=== PATIENT | female | born 1990 | race Caucasian/White ===

== ENCOUNTER 2022-11-28 21:19 | Outpatient (REF) | payer OTHER, SELFPAY ==
[2022-12-02 14:09] LABS: Age Gdln ACOG Testing Note (.); HPV Aptima Negative (Negative); IGP, Aptima HPV, rfx 16/18,45 Note (.)
== END 2022-11-28 21:20 | disposition home or self-care (01) ==
LOC: LAB 21:19
PROVIDERS: PCP Obstetrics & Gynecology; Visit Provider Obstetrics & Gynecology
DX: Z12.4 Encounter for screening for malignant neoplasm of cervix (principal)
CPT/HCPCS: 87624; G0145

== ENCOUNTER 2023-08-14 13:11 | Outpatient (REF) | payer OTHER, SELFPAY | END 2023-08-14 13:12 | disposition home or self-care (01) | LOC: LAB 13:11 | PROVIDERS: PCP Obstetrics & Gynecology; Visit Provider Obstetrics & Gynecology | DX: R10.2 Pelvic and perineal pain (principal); N92.5 Other specified irregular menstruation; N71.9 Inflammatory disease of uterus, unspecified | CPT/HCPCS: 88305 ==

== ENCOUNTER 2023-08-25 07:11 | Outpatient (OUT) | payer OTHER, SELFPAY ==
--- NOTE | 2023-08-25 07:13 | US_ITS ---
[address] [address] Patient Name: KIRSTY JONES MRN: [id number] date: 1990 Sex: F Assigned Patient Location: US Current Patient Location: US Accession/Order Number: [id number] Exam Date: 08/25/2023 07:14 Report Date: 08/25/2023 09:44 At the request of: LIZZIE FUENTES Procedure: US pelvis w/ transvaginal EXAMINATION: US pelvis w/ transvaginal HISTORY: Menorrhagia with regular cycle N92.0 COMPARISON: No relevant comparison available. TECHNIQUE: Transabdominal and/or transvaginal sonographic examination was performed as indicated by examination type. FINDINGS: UTERUS: Normal size and appearance. Several adjacent nabothian cysts within cervix. Uterus size: 7.8 x 4.8 x 5.9 cm ENDOMETRIUM: Hyperechoic 7 x 6 x 3 mm structure within fundal endometrial cavity without appreciable internal blood flow, but suggestive of a polyp. Endometrial thickness: 11 mm RIGHT OVARY: Normal size and appearance. Duplex Doppler demonstrates normal waveform and flow; resistive index 0.6. Ovary size: 3.2 x 2.8 x 2.8 cm LEFT OVARY: Normal size and appearance. Duplex Doppler demonstrates normal waveform and flow; resistive index 0.6. Ovary size: 3.0 x 2.8 x 1.6 cm CUL-DE-SAC: Unremarkable. No significant free fluid. BLADDER: Unremarkable. OTHER: None. US/US pelvis w/ transvaginal IMPRESSION: 1. Suspected polyp within fundal endometrial cavity, 7 mm in maximum size. Residual clotted blood products is felt less likely. 2. Unremarkable ovaries. 3. Normal endometrial appearance and thickness. Electronically authenticated by: MAHSA MILES Date: 08/25/2023 09:44
--- OUTSIDE RECORDS SUMMARY | 2023-08-25 07:13 | XMS_ITS | CCD ---
Author Organization [facility] Providers Care Figure Clerk Name Role Phone YANNICK LYNCH Unavailable Unavailable MAGGIE HUNTER Unavailable Unavailable ALFREDO, DR SAMUEL Admitting Unavailable ALFREDO, DR SAMUEL Primary Care Unavailable ALFREDO, DR SAMUEL Attending Unavailable ALFREDO, DR SAMUEL Consulting Unavailable ZIEBER, DR MAHSA Calle Consulting Unavailable ALFREDO, DR SAMUEL Admitting Unavailable ALFREDO, DR SAMUEL Attending Unavailable VERONICA ARMSTRONG Primary Care Unavailable ALFREDO, DR SAMUEL Admitting Unavailable ALFREDO, DR SAMUEL Attending Unavailable ALFREDO, DR SAMUEL Consulting Unavailable VERONICA ARMSTRONG Primary Care Unavailable ALFREDO, DR SAMUEL Admitting Unavailable ALFREDO, DR SAMUEL Attending Unavailable ALFREDO, DR SAMUEL Consulting Unavailable NATHANIEL VERONICA Primary Care Unavailable JASEN RAMIREZ Consulting Unavailable PILY GORDON Consulting Unavailable VERONICA ARMSTRONG Admitting Unavailable ALFREDO, DR SAMUEL Primary Care Unavailable VERONICA ARMSTRONG Attending Unavailable CELESTE BURT Consulting Unavailable ALFREDO, DR SAMUEL Primary Care Unavailable CELESTE BURT Admitting Unavailable CELESTE BURT Attending Unavailable ALFREDO, DR SAMUEL Admitting Unavailable ALFREDO, DR SAMUEL Attending Unavailable ALFREDO, DR SAMUEL Consulting Unavailable ALFREDO, DR SAMUEL Primary Care Unavailable Naeem Huitron Jr. Unavailable [phone] Naeem Huitron Unavailable Kelly MORAN, Veronica Primary Care Provider Unavaila DAKSHA Jiménez Attending Unavailable VERONICA SANCHEZ Primary Care Unavailable DAKSHA BROWN Referring Unavailable DAKSHA BRWON Attending Unavailable VERONICA SANCHEZ Primary Care Unavailable DAKSHA BROWN Referring Unavailable DAKSHA BROWN Attending Unavailable SELF, SELF Referring Unavailable VERONICA SANCHEZ Primary Care Unavailable Yannick Lynch DO Primary Care Provider YANNICK LYNCH Primary Care Unavailable LIZZIE BARNARD Attending Unavailable Lizzie Barnard Attending Unavailable Lizzie Barnard Admitting Unavailable Medications Current Medications Medication Drug Class(es) Dates Sig (Normalized) Sig (Original) busPIRone hydrochloride 10 mg oral tablet (2 sources) take 1 tablet by mouth every twelve hours busPIRone HCl 10 MG 1 tablet Oral bid for 90 Active ibuprofen 200 mg oral tablet (1 source) Nonsteroidal Anti-inflammatory Drug take 2 tablets by mouth every six hours as needed for pain ibuprofen (ADVIL;MOTRIN) 200 MG tablet Take 2 tablets by mouth every 6 hours as needed for Pain 0 Active ISOtretinoin 40 mg oral capsule (2 sources) Retinoid Start: 05-23-2022 take 2 capsules by mouth once daily Accutane 40 MG capsule Take 2 capsules by mouth daily. 0 05/23/2022 Active lamoTRIgine 100 mg oral tablet (2 sources) Mood Stabilizer, Anti-epileptic Agent take 1 tablet by mouth every twenty-four hours lamoTRIgine 100 MG 1 tablet Oral qd for 90 Active 24 hr metFORMIN hydrochloride 500 mg extended release oral tablet (2 sources) Biguanide Start: 01-29-2021 take 1 tablet by mouth every other week at dinner, then take 2 tablets by mouth once daily metFORMIN HCl ER 500 MG 1 tablet with breakfast or evening meal and in 2 weeks if no side effects take 2 tablets Orally Once a day for 30 day(s) Jan, Active MV-Min-Fe Fum-FA-DHA ( 1 PO) (1 source) MV-Min-Fe Fum-FA-DHA ( 1 PO) Take by mouth 0 Active topiramate 50 mg oral tablet (2 sources) take 1 tablet by mouth in the morning, then take 2 tablets by mouth twice daily in the evening Topamax 50 MG 1 tab am and 2 tabs pm p.o. bid Active 24 hr venlafaxine 37.5 mg extended release oral capsule (2 sources) Serotonin and Norepinephrine Reuptake Inhibitor take 1 capsule by mouth every twenty-four hours Venlafaxine HCl ER 37.5 MG 1 cap(s) Oral qd for 90 Active Problems Active Problems Problem Classification Problem Date Documented Date Episodic/Chronic Abdominal pain (1 source) Generalized abdominal pain; Translations: [Generalized abdominal pain] Onset: 09-18-2017 Episodic Contraceptive and procreative management (1 source) Tubal ligation status; Translations: [TUBAL LIGATION STATUS] Onset: 08-16-2021 Episodic Disorders of lipid metabolism (3 sources) Mixed hyperlipidemia; Translations: [Mixed hyperlipidemia] Onset: 01-29-2021 Resolved: 01-29-2021 Chronic Esophageal disorders (4 sources) Gastroesophageal reflux disease; Translations: [Gastro-esophageal reflux disease without esophagitis] Onset: 05-24-2022 Chronic Headache; including migraine (3 sources) Migraine; Translations: [Migraine, unspecified, not intractable, without status migrainosus] Onset: 01-29-2021 Resolved: 01-29-2021 Chronic Immunizations and screening for infectious disease (1 source) Encounter for screening for human papillomavirus (HPV); Translations: [ENC SCREENING HUMAN PAPILLOMAVIRUS] Onset: 06-30-2021 Episodic Menstrual disorders (5 sources) Excessive and frequent menstruation with regular cycle; Translations: [EXCESS FREQ MENSTRUATION W/REG CYCL] Onset: 08-03-2021 Chronic Mood disorders (3 sources) Bipolar disorder; Translations: [Bipolar disorder, unspecified] Onset: 01-29-2021 Resolved: 01-29-2021 Chronic Other endocrine disorders (2 sources) Polycystic ovaries; Translations: [Polycystic ovarian syndrome] Chronic Other endocrine disorders (1 source) Polycystic ovarian syndrome; Translations: [PCOS (polycystic ovarian syndrome) E28.2] Onset: 01-29-2021 Resolved: 01-29-2021 Chronic Other female genital disorders (1 source) Other specified noninflammatory disorders of vagina; Translations: [OTH SPEC NONINFLAMMATORY D/O VAGINA] Onset: 06-30-2021 Episodic Other nutritional; endocrine; and metabolic disorders (3 sources) Obesity, unspecified; Translations: [OBESITY UNSPECIFIED] Onset: 08-16-2021 Chronic Other nutritional; endocrine; and metabolic disorders (1 source) Body mass index (BMI) 39.0-39.9, adult; Translations: [BODY MASS INDEX BMI 39.0-39.9 ADULT] Onset: 08-16-2021 Chronic Other nutritional; endocrine; and metabolic disorders (2 sources) Body mass index 30+ - obesity; Translations: [Obesity, unspecified] Chronic Other nutritional; endocrine; and metabolic disorders (2 sources) Obese class II; Translations: [Obesity, unspecified] Onset: 05-24-2022 05-24-2022 Chronic Other screening for suspected conditions (not mental disorders or infectious disease) (4 sources) Encounter for screening for malignant neoplasm of cervix; Translations: [ENC SCREENING MALIG NEOPLASM CERV] Onset: 06-29-2021 Episodic Other skin disorders (4 sources) Acne vulgaris; Translations: [ACNE VULGARIS] Onset: 07-30-2021 Episodic Residual codes; unclassified (2 sources) Hypersomnia; Translations: [Hypersomnia, unspecified] Chronic Residual codes; unclassified (2 sources) Hypersomnia, unspecified; Translations: [Hypersomnia, unspecified] Onset: 05-24-2022 Chronic Sprains and strains (2 sources) Sprain of right foot; Translations: [Unspecified sprain of right foot, initial encounter] Onset: 05-22-2023 05-22-2023 Episodic Unclassified (1 source) CONTACT W/AND (SUSP) EXPOS COVID-19; Translations: [CONTACT W/AND (SUSP) EXPOS COVID-19] Onset: 08-16-2021 Past or Other Problems Problem Classification Problem Date Documented Da te Episodic/Chronic Acute bronchitis (2 sources) Acute bronchitis; Translations: [Acute bronchitis] Episodic Other nutritional; endocrine; and metabolic disorders (1 source) Abnormal weight gain; Translations: [Abnormal weight gain R63.5] Onset: 01-29-2021 Resolved: 01-29-2021 Episodic Other skin disorders (2 sources) Acanthosis nigricans; Translations: [Acanthosis nigricans] Episodic Other skin disorders (1 source) Acanthosis nigricans; Translations: [Acanthosis nigricans L83] Onset: 01-29-2021 Resolved: 01-29-2021 Episodic Results Test Name Value Interpretation Reference Range Facility [facility] 08-14-2023 L Specimen: [id number] Received: 08/16/23 Status: ELI Seymour Num: [id number] Spec Type: Surgical Subm Dr: Lizzie Barnard Tissues: A Endometrium - Biopsy (ENDO BX) Procedures: HE/2, Gross/Micro L4 Age/ Patient Sex Location Account Attending Physician Kirsty Jones 33/F LABELL [id number] Lizzie Barnard SPEC NUM: [id number] RECD: 08/16/23 STATUS: ELI SEYMOUR NUM: [id number] NARCISO: 08/14/[address]: Lizzie Barnard ENTERED: 08/16/[address] [facility] DR: Carlito Orta SPEC TYPE: Surgical DEPT: BOZENA KINSEY ORDERED: HE/2, Gross/Micro L4 ORDERED: HE/2, Gross/Micro L4 Pathological Diagnosis Endometrium, biopsy: Chronic endometritis. Gross Description Received in formalin, labeled with the patient's name, date of and endo bx is a 2.1 x 0.7 x 0.2 cm aggregate of olivas tissue and mucus, entirely submitted in A1. Clinical history: Pelvic pain in female, menorrhagia with irregular cycle CPT Codes 82484 Specimen: [id number] Received: 08/16/23 Status: SERAFINPavel Seymour Num: [id number] Spec Type: Surgical Subm Dr: Lizzie Barnard Tissues: A Endometrium - Biopsy (ENDO BX) Procedures: HE/2, Gross/Micro L4 Patient: Niranjan,Taylor [id number] (Continued) Signed (signature on file) Rea Callejas MD 08/17/23 1412 Normal [facility] XR FOOT RIGHT (MIN 3 VIEWS)o n 05-22-2023 XR FOOT RIGHT (MIN 3 VIEWS) EXAMINATION: THREE XRAY VIEWS OF THE RIGHT FOOT 05/22/2023 10:24 am COMPARISON: None. HISTORY: ORDERING SYSTEM PROVIDED HISTORY: foot pain s/p roling ankle TECHNOLOGIST PROVIDED HISTORY: foot pain s/p roling ankle 33-year-old female with right foot pain after rolling the ankle FINDINGS: Osseous alignment is normal. Joint spaces are well maintained. No marginal erosions are identified. No acute fracture or gross dislocation is seen. Mild plantar calcaneal spur. The medial and middle cuneiforms demonstrate proper alignment with the base of the 1st and 2nd metatarsals respectively. No tibiotalar joint effusion is seen. Boehler's angle is maintained. Mild soft tissue swelling at the dorsal midfoot and anterior ankle. IMPRESSION: 1. Mild plantar calcaneal spur. 2. Mild soft tissue swelling of the dorsal midfoot and anterior ankle. 3. No acute fracture or dislocation. Interpreted by: Jeremy Villalta MD Signed by: Jeremy Villalta MD 05/22/23 Final result Normal [facility] XR Foot - right 3 Viewson 1. Mild plantar calcaneal spur. 2. Mild soft tissue swelling of the dorsal midfoot and anterior ankle. 3. No acute fracture or dislocation. [facility] RIS CONSOLIDATED EXAMINATION: THREE XRAY VIEWS OF THE RIGHT FOOT 05/22/2023 10:24 am COMPARISON: None. HISTORY: ORDERING SYSTEM PROVIDED HISTORY: foot pain s/p roling ankle TECHNOLOGIST PROVIDED HISTORY: foot pain s/p roling ankle 33-year-old female with right foot pain after rolling the ankle FINDINGS: Osseous alignment is normal. Joint spaces are well maintained. No marginal erosions are identified. No acute fracture or gross dislocation is seen. Mild plantar calcaneal spur. The medial and middle cuneiforms demonstrate proper alignment with the base of the 1st and 2nd metatarsals respectively. No tibiotalar joint effusion is seen. Boehler's angle is maintained. Mild soft tissue swelling at the dorsal midfoot and anterior ankle. [facility] Jeremy Tse MD - 05/22/2023 EXAMINATION: THREE XRAY VIEWS OF THE RIGHT FOOT 05/22/2023 10:24 am COMPARISON: None. HISTORY: ORDERING SYSTEM PROVIDED HISTORY: foot pain s/p roling ankle TECHNOLOGIST PROVIDED HISTORY: foot pain s/p roling ankle 33-year-old female with right foot pain after rolling the ankle FINDINGS: Osseous alignment is normal. Joint spaces are well maintained. No marginal erosions are identified. No acute fracture or gross dislocation is seen. Mild plantar calcaneal spur. The medial and middle cuneiforms demonstrate proper alignment with the base of the 1st and 2nd metatarsals respectively. No tibiotalar joint effusion is seen. Boehler's angle is maintained. Mild soft tissue swelling at the dorsal midfoot and anterior ankle. IMPRESSION: 1. Mild plantar calcaneal spur. 2. Mild soft tissue swelling of the dorsal midfoot and anterior ankle. 3. No acute fracture or dislocation. [facility] Radiology Study observation (narrative) [facility] XR Foot - right 3 ViewsOrder ed By: Jeremy Villalta on 05-22-2023 [facility] Work Phone: CBC AUTO DIFFon 08-13-2021 BASO # 0.0 103/ul Normal 0.0-0.1 [facility] Comment on above: Performed By: #### C BC #### [facility] Laboratory [address] [address] [address] Estella Vicente Basophils/100 WBC (Bld) 0.5 % Normal 0.2-2.0 [facility] Comment on above: Performed By: #### C BC #### [facility] Laboratory [address] [place] [address] Dr. Estella Vicente EO # 0.1 103/ul Normal 0.0-0.7 [facility] Comment on above: Performed By: #### C BC #### [facility] [address] [place] [address] Dr. Estella Vicente Eosinophils/100 WBC (Bld) 1.2 % Normal 0.9-7.0 [facility] Comment on above: Performed By: #### C BC #### [facility] [address] [place] [address] Dr. Estella Vicente Erythrocyte distribution width (RBC) [Ratio] 13.1 % Normal 11.0-15.0 [facility] Comment on above: Performed By: #### C BC #### [facility] [address] [place] [address] Dr. Estella Vicente Hematocrit (Bld) [Volume fraction] 39.5 % Normal 36.0-48.0 [facility] Comment on above: Performed By: #### C BC #### [facility] [address] [place] [address] Dr. Estella Vicente Hemoglobin (Bld) [Mass/Vol] 13.2 g/dL Normal 12.0-16.0 [facility] Comment on above: Performed By: #### C BC #### [facility] [address] [place] [address] Dr. Estella Vicente IG # 0.01 10e3/ul Normal 0.00-0.03 [facility] Comment on above: Performed By: #### C BC #### [facility] [address] [place] [address] Dr. Estella Vicente IG % 0.1 % Normal 0.0-0.5 [facility] Comment on above: Performed By: #### C BC #### [facility] [address] [place] [address] Dr. Estella Vicente LYMPH # 1.7 103/ul Normal 1.2-3.8 [facility] Comment on above: Performed By: #### C BC #### [facility] [address] [place] [address] Dr. Estella Vicente Lymphocytes/100 WBC (Bld) 23.6 % Normal 20.5-60.0 [facility] Comment on above: Performed By: #### C BC #### [facility] [address] [place] [address] Dr. Estella Vicente MANUAL DIFF REQ NO Normal [facility] Comment on above: Performed By: #### C BC #### [facility] [address] [place] [address] Dr. Estella Vicente MCH (RBC) [Entitic mass] 29.1 pg Normal 26.7-34.0 [facility] Comment on above: Performed By: #### C BC #### [facility] [address] [place] [address] Dr. Estella Vicente MCHC (RBC) [Mass/Vol] 33.4 g/dL Normal 29.9-35.2 [facility] Comment on above: Performed By: #### C BC #### [facility] [address] [place] [address] Dr. Estella Vicente MCV (RBC) [Entitic vol] 87.2 fL Normal 81.0-99.0 [facility] Comment on above: Performed By: #### C BC #### [facility] [address] [place] [address] Dr. Estella Vicente MONO # 0.6 103/ul Normal 0.3-0.8 [facility] Comment on above: Performed By: #### C BC #### [facility] [address] [place] [address] Dr. Estella Vicente Monocytes/100 WBC (Bld) 7.5 % Normal 1.7-12.0 [facility] Comment on above: Performed By: #### C BC #### [facility] [address] [place] [address] Dr. Estella Vicente NEUT # 4.9 103/ul Normal 1.4-6.5 [facility] Comment on above: Performed By: #### C BC #### [facility] [address] [place] [address] Dr. Estella Vicente Neutrophils/100 WBC (Bld) 67.1 % Normal 43.0-75.0 [facility] Comment on above: Performed By: #### C BC #### [facility] [address] [place] [address] Dr. Estella Vicente Platelet mean volume (Bld) [Entitic vol] 11.9 fL Normal 9.5-13.5 [facility] Comment on above: Performed By: #### C BC #### [facility] [address] [place] [address] Dr. Estella Vicente PLT 252 103/ul Normal 150-450 [facility] Comment on above: Performed By: #### C BC #### [facility] [address] [place] [address] Dr. Estella Vicente RBC 4.53 106/ul Normal 4.20-5.40 [facility] Comment on above: Performed By: #### C BC #### [facility] [address] [place] [address] Dr. Estella Vicente WBC 7.3 103/ul Normal 4.0-11.0 [facility] Comment on above: Performed By: #### C BC #### [facility] [address] [place] [address] Dr. Estella Vicente Covid-19 PCR ([facility])on 08-01 SARS-CoV-2 (COVID-19) RNA CRIS+probe Ql (Unsp spec) Not detected Normal NOT DETECTED [facility] Comment on above: Result Comment: When diagnostic testing is negative, the possibility of a false negative should be considered in the context of a patient's recent exposures and the presence of clinical signs and symptoms consistent with SARS-CoV-2. This test is not yet approved or cleared by the [place] FDA. When there are no FDA-approved or cleared tests available, and other criteria are met, FDA can make tests available under an emergency access mechanism called an Emergency Use Authorization (EUA). The EUA for this test is supported by the Supervisor Forming Department of Health and Human Service's declaration that circumstances exist to justify the emergency use of in vitro diagnostics for the detection and/or diagnosis of the virus that causes COVID-19. This EUA will remain in effect for the duration of the COVID-19 declaration justifying emergency of IVDs, unless it is terminated or revoked by the FDA (after which the test may no longer be used). Performed By: #### C VDTBH #### [facility] [address] [address] [address] Estella Vicente PREG QUANT HCGon 08-13-2021 HCG QUANT 1 mIU/mL Normal [facility] Comment on above: Performed By: #### P REGQNT #### [facility] [address] [place] [address] Dr. Estella Vicente HCG RANGE SEE BELOW Normal [facility] Comment on above: Result Comment: 5-50 0-1 WEEK 40-300 1-2 WEEKS 100-1,000 2-3 WEEKS 500-6,000 3-4 WEEKS 5,000-200,000 1-2 MONTHS 10,000-100,000 2-3 MONTHS 3,000-50,000 2ND TRIMESTER 1,000-50,000 3RD TRIMESTER Performed By: #### P REGQNT #### [facility] [address] [place] [address] Dr. Estella Vicente CBC AUTO DIFFon 07-30-2021 BASO # 0.0 103/ul Normal 0.0-0.1 [facility] Comment on above: Performed By: #### C BC ####[facility] [address] [address]Dr. Estella Vicente Basophils/100 WBC (Bld) 0.4 % Normal 0.2-2.0 [facility] Comment on above: Performed By: #### C BC ####[facility] [address] [address]DrSaji Vicente EO # 0.1 103/ul Normal 0.0-0.7 [facility] Comment on above: Performed By: #### C BC ####[facility] [address] [address]Dr. Estella Vicente Eosinophils/100 WBC (Bld) 1.1 % Normal 0.9-7.0 [facility] Comment on above: Performed By: #### C BC ####[facility] [address] [address]Dr. Estella Vicente Erythrocyte distribution width (RBC) [Ratio] 12.9 % Normal 11.0-15.0 [facility] Comment on above: Performed By: #### C BC ####[facility] [address] [place], [place] [address]Dr. Estella Vicente Hematocrit (Bld) [Volume fraction] 41.3 % Normal 36.0-48.0 [facility] Comment on above: Performed By: #### C BC ####[facility] [address] [place], [place] [address]Dr. Estella Vicente Hemoglobin (Bld) [Mass/Vol] 13.6 g/dL Normal 12.0-16.0 [facility] Comment on above: Performed By: #### C BC ####[facility] [address] [place], [place] [address]Dr. Estella Vicente IG # 0.01 10e3/ul Normal 0.00-0.03 [facility] Comment on above: Performed By: #### C BC ####[facility] [address] [place], [place] [address]Dr. Estella Vicente IG % 0.1 % Normal 0.0-0.5 [facility] Comment on above: Performed By: #### C BC ####[facility] [address] [place], [place] [address]Dr. Estella Vicente LYMPH # 1.7 103/ul Normal 1.2-3.8 [facility] Comment on above: Performed By: #### C BC ####[facility] [address] [place], [place] [address]Dr. Estella Vicente Lymphocytes/100 WBC (Bld) 24.2 % Normal 20.5-60.0 [facility] Comment on above: Performed By: #### C BC ####[facility] [address] [place], [place] [address]Dr. Estella Vicente MANUAL DIFF REQ NO Normal [facility] Comment on above: Performed By: #### C BC ####[facility] [address] [id number][address] Estella Vicente MCH (RBC) [Entitic mass] 28.8 pg Normal 26.7-34.0 [facility] Comment on above: Performed By: #### C BC ####[facility] [address] [id number][address] Estella Vicente MCHC (RBC) [Mass/Vol] 32.9 g/dL Normal 29.9-35.2 [facility] Comment on above: Performed By: #### C BC ####[facility] [address] [place], [place] [id number]. Estella Vicente MCV (RBC) [Entitic vol] 87.5 fL Normal 81.0-99.0 [facility] Comment on above: Performed By: #### C BC ####[facility] [address] [place], [place] [address]Dr. Estella Vicente MONO # 0.6 103/ul Normal 0.3-0.8 [facility] [facility] Comment on above: Performed By: #### C BC ####[facility] [address] [place], [place] [address]Dr. Estella Jules Monocytes/100 WBC (Bld) 7.9 % Normal 1.7-12.0 [facility] Comment on above: Performed By: #### C BC ####[facility] [address] [place], [place] [address]Dr. Estella Vicente NEUT # 4.7 103/ul Normal 1.4-6.5 [facility] Comment on above: Performed By: #### C BC ####[facility] [address] [place], [place] [address]Dr. Estella Vicente Neutrophils/100 WBC (Bld) 66.3 % Normal 43.0-75.0 [facility] Comment on above: Performed By: #### C BC ####[facility] [address] [place], [place] [address]Dr. Estella Vicente Platelet mean volume (Bld) [Entitic vol] 11.4 fL Normal 9.5-13.5 [facility] Comment on above: Performed By: #### C BC ####[facility] [address] [place], [place] [address]Rq. Estella Vicente PLT 292 103/ul Normal 150-450 [facility] Comment on above: Performed By: #### C BC ####[facility] [address] [place], [place] [address]Tj. Estella Vicente RBC 4.72 106/ul Normal 4.20-5.40 [facility] Comment on above: Performed By: #### C BC ####[facility] [address] [place], [place] [address]Uq. Estella Vicente WBC 7.1 103/ul Normal 4.0-11.0 [facility] Comment on above: Performed By: #### C BC ####[facility] [address] [place], [place] [address]ErSaji Vicente SGOTon 07-30-2021 AST [Catalytic activity/Vol] 11 U/L Critically low 15-37 [facility] Comment on above: Performed By: #### T RIG, AST, ALT #### [facility] Laboratory [address] [address] [address] Estella Vicente SGPTon 07-30-2021 ALT [Catalytic activity/Vol] 20 U/L Normal 14-59 [facility] Comment on above: Performed By: #### T RIG, AST, ALT #### [facility] Laboratory [address] [address] [address] Estella Vicente TRIGLYCERIDEon 07-30-2021 Triglyceride [Mass/Vol] 68 mg/dL Normal <=150 [facility] Comment on above: Performed By: #### T RIG, AST, ALT #### [facility] Laboratory [address] [address] [address] Estella Vicente US PELVIS AND TRANSVAGon US PELVIS AND TRANSVAG EXAMINATION: US PELVIS AND TRANSVAG HISTORY: Excessive and frequent menstruation COMPARISON: No relevant comparison available. TECHNIQUE: Transabdominal and transvaginal sonographic examination. FINDINGS: UTERUS: Normal size and appearance. Uterus size: 9.6 x 5.2 x 6.0 cm ENDOMETRIUM: Normal homogeneous appearance. Endometrial thickness: 11 mm RIGHT OVARY: Normal size and appearance. Duplex Doppler demonstrates normal waveform and flow; resistive index 0.7. Ovary size: 3.3 x 1.7 x 2.2 cm LEFT OVARY: Normal size and appearance. Duplex Doppler demonstrates normal waveform and flow; resistive index 0.5. Ovary size: 4.3 x 2.2 x 3.3 cm CUL-DE-SAC: Unremarkable. No significant free fluid. BLADDER: Unremarkable. OTHER: None. IMPRESSION: 1. Normal pelvic ultrasound. No suspicious findings to account for patient's symptoms. Electronically authenticated by: MAHSA MILES Date: 2021-07-20 11:05 Normal [facility] PAP ACOG PANEL 2: 30 to 65on 07-12-2021 . . Normal [facility] Comment on above: Result Comment: Perf ormed at: WB Performed By: #### 4 [id number] ####[facility] [address] [address]DrSaji Vicente Age Gdln ACOG Testing 30-65 Normal [facility] Comment on above: Performed By: #### 4 [id number] ####[facility] [address] [address]Dr. Estella Vicente DIAGNOSIS: Comment Normal [facility] Comment on above: Result Comment: NEGA TIVE FOR INTRAEPITHELIAL LESION OR MALIGNANCY. Performed at: WB Performed By: #### 4 [id number] ####[facility] [address] [address]DrSaji Vicente HPV Aptima Negative Normal Negative [facility] Comment on above: Result Comment: This nucleic acid amplification test detects fourteen high-risk HPV types (16,18,31,33,35,39,45,51,52,56,58,59,66,68) without differentiation. Performed at: =G Performed By: #### 4 [id number] ####[facility] [address] [address]DrSaji Vicente Methodology: Comment Normal [facility] Comment on above: Result Comment: This liquid based ThinPrep(R) pap test was screened with the use of an image guided system. Performed at: WB Performed By: #### 4 [id number] ####[facility] [address] [address]Dr. Estella Vicente Note: Comment Normal [facility] Comment on above: Result Comment: The Pap smear is a screening test designed to aid in the detection of premalignant and malignant conditions of the uterine cervix. It is not a diagnostic procedure and should not be used as the sole means of detecting cervical cancer. Both false-positive and false-negative reports do occur. . Performed at: WB Performed By: #### 4 [id number] ####[facility] [address] [address]Dr. Estella Vicente Performed by: Comment Normal [facility] Comment on above: Result Comment: Elena Storm [employer] Worker (ASCP) Performed at: WB Performed By: #### 4 [id number] ####[facility] [address] [place], [place] [address]Dr. Estella Vicente Specimen adequacy: Comment Normal [facility] Comment on above: Result Comment: Sati sfactory for evaluation. Endocervical and/or squamous metaplastic cells (endocervical component) are present. Performed at: WB Performed By: #### 4 [id number] ####[facility] [address] [place], [place] [address]DrSaji Vicente VAGINITIS/VAGINOSIS DNA PROB Kole 07-12-2021 Dorothy species Positive Abnormal Negative The [facility] Comment on above: Performed By: #### V AGINT #### [facility] Laboratory [address] [place] [address] Dr. Estella Vicente Gardnerella vaginalis Negative Normal Negative [facility] Comment on above: Performed By: #### V AGINT #### [facility] Laboratory [address] [address] [address] Estella Vicente Trichomonas vaginalis Negative Normal Negative [facility] Comment on above: Performed By: #### V AGINT #### [facility] Laboratory [address] [place] [address] Dr. Estella Vicente PAP ACOG PANEL 2: 30 to 65on 07-04-2021 . . Normal [facility] Comment on above: Result Comment: Perf ormed at: WB Performed By: #### 4 [id number] ####[facility] [address] [id number] Vicente Age Gdln ACOG Testing 30-65 Normal [facility] Comment on above: Performed By: #### 4 [id number] ####[facility] [address] [id number] Vicente DIAGNOSIS: Comment Normal [facility] Comment on above: Result Comment: NEGA TIVE FOR INTRAEPITHELIAL LESION OR MALIGNANCY. Performed at: WB Performed By: #### 4 [id number] ####[facility] [address] [address]DrSaji Vicente HPV Aptima Negative Normal Negative [facility] Comment on above: Result Comment: This nucleic acid amplification test detects fourteen high-risk HPV types (16,18,31,33,35,39,45,51,52,56,58,59,66,68) without differentiation. Performed at: =G Performed By: #### 4 [id number] ####[facility] [address] [id number]. Estella Vicente Methodology: Comment Normal [facility] Comment on above: Result Comment: This liquid based ThinPrep(R) pap test was screened with the use of an image guided system. Performed at: WB Performed By: #### 4 [id number] ####[facility] [address] [address]DrSaji Vicente Note: Comment Normal [facility] Comment on above: Result Comment: The Pap smear is a screening test designed to aid in the detection of premalignant and malignant conditions of the uterine cervix. It is not a diagnostic procedure and should not be used as the sole means of detecting cervical cancer. Both false-positive and false-negative reports do occur. . Performed at: WB Performed By: #### 4 [id number] ####[facility] [address] [id number] Vicente Performed by: Comment Normal [facility] Comment on above: Result Comment: Elena Storm [employer] Worker (ASCP) Performed at: WB Performed By: #### 4 [id number] ####[facility] [address] [address]Dr. Estella Vicente Specimen adequacy: Comment Normal [facility] Comment on above: Result Comment: Sati sfactory for evaluation. Endocervical and/or squamous metaplastic cells (endocervical component) are present. Performed at: WB Performed By: #### 4 [id number] ####[facility] [address] [address]Dr. Estella Vicente VAGINITIS/VAGINOSIS DNA PROB Kole 06-30-2021 Dorothy species Positive Abnormal Negative [facility] Comment on above: Performed By: #### V AGINT #### [facility] Laboratory [address] [address] [address] Estella Vicente Gardnerella vaginalis Negative Normal Negative [facility] Comment on above: Performed By: #### V AGINT #### [facility] Laboratory [address] [address] [address] Estella Vicente Trichomonas vaginalis Negative Normal Negative [facility] Comment on above: Performed By: #### V AGINT #### [facility] Laboratory [address] [address] [address] Estella Vicente Coding Summary.on 11-16-2020 Coding Summary. CD:[id number] Gh0bWw+PGhlYWQ+PE1FV CDkC14gwMIlgT4TJ8jIM V6GHWVCVITGXJ2GXA3fb YW3TQcuN2AjwqYc SqhirMXlMW13WHg4ZCL6 jJfcHBekjD1amTSfA9a4 ZlAsWI69xN42DCyzGNHc AuX9KvAslavkpQFe O2efPgQlhXFeNvm+PHRh YmxlIHdpZHRoPScxMDAl DcDgwQmxPQ9pDp9xHVJe LWNvbGxhcHNlOiBj x5ykLSAzEXibSJ3rkTnf I8VdwOA7PHDlv2i8Tr83 dHI+KHXkJWQ2yYfoRWfb t039PtUyj4jmZEG5 cVVvBItsHLL3I04ya4C3 VSFtTFItQFI1dCA5uX9g bPvysgriM7KloMHpGoJ0 EIP3rQKqxF6wjHom iuxcmY1oVek+G84CLU1K WRFGXL0ZKcn2L1SuCebz dHI+LN47CFDnZT44bLRc vHWcv2hbwVt1KmOa GMEeSPB5wGokHZsmn0Wj LTAsU57aeZJkd6V6FLTt uCqeqEZjOoNbuZM4uY2y CFdnhyaao1vsolvv Plzhf6ctmb42sD11X07y IUenTIPkACA7BAAbJYLv hKphri6fmQ2kJs3+IDxj m7hzi6yauQf9GtUs HYYnhxStjQkuYIO9y4Rl Mv64J9UjsPbop2ZuRnu9 il85fAQbq1A2fNP7JByn KQKhyW4aBMifKoR4 LCPxNmFfqB50qESaRIom Bg3eqOceqMouDA9dZLPz yghiLXIopE2bILAfmXSf rCokPX7iRGKspzpr a064IoGvNNH0BDXwzLEd G5MdeT8mSrKjMKUdAWIk S2WrqOFdAGshB413AMje AhQ5DVImclPjF4Gt KOZzaLunQpH9g1Z4Rn6G q3LiispyDEW9TQaiVQS2 KxZ6CzSbLfF8I0CvSvh7 KBLgfHwoSB9pF4Sh RGMmdsykzaiulZX5BFVd MJLvhM26eFAsVYixPh2h s0N2e479KXAzDCBlyL41 Hh8yzOtcFULgfWMH uY0ouanpd7vahdmuXcIc WFUiFZs4ZIz6NYYmtAvt SeKhTKN9OeX0GHY1sVWa hI3zkModthhdxH1b Oyc+Z45uvD2tOTT0FQE4 dwtgNTDfjnXfAI55OV33 C1IlIijtmHFboGH+PGRp gcVpwPxoVQ1rMzXw d4nsd0GwGAqzS4KwDAHi SWcmAso2MMEhTCY6uZV2 gM8mYLQaKVmnz9J0oWN1 X4SqajWrtf9mw9nm EEIvQTbnY18vcDHzb2Y3 NQNygUI1UERsbJfbJtXk gF00Fpc+GNAmsKueb8Iu Kivap5hfk8rvwQe1 IjMwJSIgdmFsaWduPSJ0 m3JvJc35M78kXRahWZEr GAVyKHAjCCWdiIzbcl3p rV4fOe1+PGNvbCB3 aUA1uT6yHHDwCyD5WDbb A441NqDlqCCeVskcm0zq t0ehwVp7KwSoCWHwvjAs gTzeDIS6e9OsPg24 K28qQOudWPDbBTGwQEZw CWDasXsxia2vjP9yOq1+ EP7vz2koad60aI55eZH+ HCXaJPU4aNvsXRqg GSQanQ4oQIqkGuG2HEOb GqNkpG46yQVnGLrdDa4i dVlivFgmNI3iBCXvmhzz j814TnIkn7dsRAYp eHYhMMhuDVV1X64lh3P5 VURuHNNlHJT8mPS4oT8s bGlnbjogbGVmdDsgdmVy dVjuHBhaTGryS158 IHRvcDsnPlBhdGllbnQg VvMoDUn7Y6ZwJvz9BEVl cApwLQ7hlZMdCPgsLs3z hWtnbDjuSV1rSZZk jdcih455ExWgw2rqZFVu lZVqSZasBDC7Q17vb7P4 FPZfQIYhNPQ2iJU2xY8b bGlnbjogbGVmdDsg kqVlgBkeRQhqASugV404 IHRvcDsnPkJpcnRoIERh vXD2JY15ED68lDSkq2P6 pOM3S3TxRZWolwzm zcwghMB6RHIjXECdtS31 Hs7opTmwSx3kGVOyVCF9 KXXbqDJhY7JxzQ3xKxGo NFQwUMNiT3PuxYWx VRahK547EJfkBxR4TTLz mbLuP3IrQDTsoRysRrI2 s0B4Sl5CJ6C1BN83BK06 sMBsk1Z7tXC2E4Gl LQZsvqbxjqiuhWZ0IOIt CMTliV14Xn4onNemTe4e SCSjKCR2AOOttIWuC7Qt vA3tSoKzKLStGESs B0AzgSEnVIajO917BOti ZsQ4CEGyyzGeU4SwJMCk yFmhIlK4r5W3Hw2RENr4 BK93IR87iKWon1J0 pUX9G5JkSWYbezjmzimv bJS3VLHeMSNrbS59Ui8a kQjrOl8yICCrMPR3OEPf qOTpP7MnfZ2xKjBn ICDjFJZvB6BgaMGqOVem T855NEpqMqQ2IJMrtkIr Y3XbUMEzuMxcMnN0w8U9 Hb1XDODxSI35TVD9 oQI6LD42HE09E0HgXiwl dGFibGU+PHRhYmxlIHdp ZHRoPScxMDAlJyBzdHls NL3mCr5oJNBzJRMf dWxgmUCcXuQbn0icHSZt MPbgSA0ubLkcF5EfoDD8 ETLjx2k8Gx67Y89hM0Sk dXA+FXTsvPI4sJH0 nO6nJmCoQgM8ZDyxR820 AqXjgBEsDgqfm9itr2xm gGp0ZiR8XHPbvwYvfQuk GPP1t5JuWn30S79o IHdpZHRoPSIxNSUiIHZh sRanar3puR2kRa1+PGNv yFJ3dML0xL9mEvJsZmR6 WEadG261FtFopZYa Oaehp1hun1nojNb8JyTn COOjvqKzuPqfMBI0p0Hz Gb51N8QnmDocp5KkMgo5 ww46bQHjz4V0mMO2 K3LpTKJozmmvpRFbpZyq ZG6wXILzwkmiIGHusA6l DAOsR0b5YmDpZwT3ALmq K2HnrmC0EEYbuWEx RZavWIJ7X21qc3S4LMCt GJXfEGS7wDE3qY5ygJmh bjogbGVmdDsgdmVydGlj QQbgYXozP886FBQa fSotGTCpuI5uHYOmoIXs sVrjQL6yURVpxvpwOp8U X2uICNGEWItvRTTBVI1I UT25H2EhXxg7YIMt yBmiMK5yvODgAHxdBw0u xFchfFvtRW7bOZAfwztk AZCzgS5qKICmxIXctJbs MA0mEXPuvnwte769 ByTlLHS3NAEniAWyK5Vx jR7tVmAnMGDqXDTaC5Ob xQLdMYaxR311UFvuYmE6 DTOehzBiB8SbMEKb uPslKgZ1d4J7Br7xRh5w Dq5lHNeoGF52UT70kAUd d7W9hDP9H0GlVNQgjfxz erdpfBT4XTLcLRVm uV31zBNbZEdeMd9sw4K7 j919RGPyORAdgY31Ab2k oJqvUSRmuXTLjM5qnnss h7mpljniGmHkRFFs SKn5HHj4GDPpzQsnUlCy SFC1YjH9MZH3dCOkeF8k cDbvmqmekC2xIyg+MzAg JLWrsoW8R4LbIvl1 WFQhqLyjRN8bnWNhLKzr Hf3mwCzfsIgaUM7gWKFk kwrdGZQjmJ6rHSJewEUj gPxmKQ5iASPhdeid n063BhRlKSF0QLGxiPNf K4ZikV9tGxYeSYHvLPUf J3VbeYAvFWhhO604PVbq IcS6VVPnwiVuK8Dk QMIxxFrgVbW3b3M7Nf4E TM2rtBX7M2FiKar0QQUr zUxzWT8tjEIsVRawEv2z aYtizLygGE0cJCKu uvuqAWNjhO5uRQThaMFo lWxrDD5pZQXswdkbo542 IvZpUIO2WPDdqEGiV3Tq dE4wTmWiDJFwPEPr R1BncTSoDEtlS343JZnd BiK3IEUafjHnN3UuQGRk wAzyHnF9e3Z7Bt6OUCAx RBOgzUAlVcJ2Q1Ei PjwvdHI+JH86MJAlVG19 oJNkyHYwu8yxhHe0NpSq NWTsLNH8rGbwMOqoc6Bf SRMfS38vwLPyj3A3 IGNvbGxhcHNlOyBlbXB0 wK3eLUinftgkn6unywyo Zjpmv5nacq71sZ47E22z IHdpZHRoPSIzMCUi JMPgsAqeym9gyE2aBt8+ MZDrfYK7fEK9iC5pJvWo DwS2ZMptF579WpCajNBe Uhwma4vch0snkLx5 IjIwJSIgdmFsaWduPSJ0 i6LrUp14X82gZVzsPHUc SKCvQHDcTFNccVfouv3m mE7fXq2+GK5wc7if pa89bY28iJR+PHRkIHN0 xEbnBGojVVRobV1dXWsx AcI3AYMyNcZehA83qHPl XRhiWu7fjGtgjTru ZL3zXNPmmtodr734HeXk h5flRAUkrDQqPHitPYA8 B39gg1A9EDXqMKErOXG5 fGZ7fD6ntMkrptwb bGVmdDsgdmVydGljYWwt VQevP813GIUdmQzuFvHc xFNhG5lsxiIWVE4aBntd dGQ+QDZeARM2mVsf JNumOXFfnS5yUHRoN4w1 LfPbErI3JJoiU9EnokQ8 CVAzaSNiWOSeuVUTpB0d pilad5zdgtbdEwRo AGMcZYa6ISp0FUEwdBhn WwTtVDT3VgW8QQK4nEBw oB0eqVrtqyfkiL4xZzx+ RklOOjwvdGQ+PHRk BBJ5wUvoYOegLSSiiR8o BMJbG5v5SfTtSaS2AEtr Q8OcuhO9FROneCGoBDAm rKCJbB2uizutm8bn yffgNsQaJGAiFNr9TXm3 YZAtiNscTiNkLHL2TtC7 GXH9bDZvtH1iwXyiimfw lT8dSqn+TVJOOjwv dGQ+CCUhKQF3zTaiWYfw CKWujS1tLEHqR8d3IcUe FvN5FMyzT4RiydE4IVEa hRTdUDIkiAZPeZ9k jtvod6wqlercGfHeRIEr WJd5UTr1RHEjwQkbTjYo TFX7OrW9WLA0aFYukJ3e dXpkrjhplL7tHnc+ CHI0VMK5RT52IX17M1Et PjwvdGFibGU+PHRhYmxl IHdpZHRoPScxMDAlJyBz kLtrBI8tEi9lSDKl LWNv (more content not included)... Normal [facility] Ambulatory Clinical Summaryo n 11-12-2020 Ambulatory Clinical Summary {[id number]}CD:[id number] Normal [facility] Auto Diffon 11-12-2020 Basophils/100 WBC (Bld) 0.6 % Normal 0.0-2.0 [facility] Comment on above: Order Comment: Order Added by Discern Expert. Performed By: #### 1 [id number], [id number], 7827957, 4428188, 1635217, 1447665 #### [facility] Laboratory [address] [place] [address] Basophils/Leukocytes Auto (Bld) [Pure # fraction] 0.0 E9/L Normal 0.0-0.2 [facility] Comment on above: Order Comment: Order Added by Discern Expert. Performed By: #### 1 [id number], 57850012, 7261170, 9089744, 6882147, 1830446 #### [facility] [address] [place] [address] Eosinophils/100 WBC (Bld) 1.0 % Normal 0.0-8.0 [facility] Comment on above: Order Comment: Order Added by Discern Expert. Performed By: #### 1 4008615, 58655455, 2380435, 4997959, 8694138, 1496807 #### [facility] [address] [place] [address] Eosinophils/Leukocyt es Auto (Bld) [Pure # fraction] 0.1 E9/L Normal 0.0-0.5 [facility] Comment on above: Order Comment: Order Added by Discern Expert. Performed By: #### 1 0068076, 14609867, 5931624, 2409150, 5043516, 2751308 #### [facility] [address] [place] [address] Lymphocytes/100 WBC (Bld) 21.6 % Normal 14.0-50.0 [facility] Comment on above: Order Comment: Order Added by Discern Expert. Performed By: #### 1 7534372, 28488090, 8426390, 2850747, 3494985, 5015195 #### [facility] [address] [place] [address]197 Lymphocytes/Leukocyt es Auto (Bld) [Pure # fraction] 1.7 E9/L Normal 1.0-4.0 [facility] Comment on above: Order Comment: Order Added by Discern Expert. Performed By: #### 1 [id number], 49509264, 3117695, 6957975, 2396584, 4312003 #### [facility] [address] [place] [address]6219 Monocytes/100 WBC (Bld) 7.4 % Normal 4.0-14.0 [facility] Comment on above: Order Comment: Order Added by Discern Expert. Performed By: #### 1 1343677, 47349912, 8808937, 0657421, 0678904, 1293245 #### [facility] [address] [place] [address]691 Monocytes/Leukocytes Auto (Bld) [Pure # fraction] 0.6 E9/L Normal 0.2-1.0 [facility] Comment on above: Order Comment: Order Added by Discern Expert. Performed By: #### 1 1306826, 29896569, 5304993, 2017582, 1995472, 2257798 #### [facility] [address] [place] [address] 43104 Neutrophils/100 WBC (Bld) 69.4 % Normal 36.0-75.0 [facility] Comment on above: Order Comment: Order Added by Discern Expert. Performed By: #### 1 1114956, 53721856, 4785567, 5070362, 0060677, 1320052 #### [facility] [address] [place] [address] 47627 Neutrophils/Leukocyt es Auto (Bld) [Pure # fraction] 5.6 E9/L Normal 2.0-7.5 [facility] Comment on above: Order Comment: Order Added by Discern Expert. Performed By: #### 1 5676981, 46235672, 7140363, 2150058, 3866810, 2068524 #### [facility] [address] [place] [address] 24949 CBC w/ Auto Diffon 1 Erythrocyte distribution width (RBC) [Ratio] 13.0 % Normal 10.9-14.2 [facility] Comment on above: Performed By: #### 1 5679129, 67964594, 5336651, 1417047, 5198338, 1237014 #### [facility] [address] [place] [address] 68437 Hematocrit (Bld) [Volume fraction] 40.8 % Normal 34.0-46.0 [facility] Comment on above: Performed By: #### 1 7165302, 84640590, 6199394, 2108062, 3052607, 5623475 #### [facility] [address] [place] [address] 57859 Hemoglobin (Bld) [Mass/Vol] 13.4 g/dL Normal 12.0-16.0 [facility] Comment on above: Performed By: #### 1 7387338, 71700321, 1724801, 2355509, 1040857, 9120078 #### [facility] [address] [place] [address] 29641 MCH (RBC) [Entitic mass] 29.0 pg Normal 27.0-34.0 [facility] Comment on above: Performed By: #### 1 5338454, 45380415, 9205744, 0192296, 9405277, 9936515 #### [facility] [address] [place] [address] 11993 MCHC (RBC) [Mass/Vol] 32.9 g/dL Normal 31.4-36.0 [facility] Comment on above: Performed By: #### 1 4502431, 57016083, 9202037, 4325730, 0364668, 8580088 #### [facility] [address] [place] [address] 52675 MCV (RBC) [Entitic vol] 88.1 fL Normal 80.0-100.0 [facility] Comment on above: Performed By: #### 1 9828817, 41382420, 7788734, 1533266, 0433990, 6844374 #### [facility] [address] [place] [address] Platelet mean volume (Bld) [Entitic vol] 10.7 fL Normal 6.4-10.8 [facility] Comment on above: Performed By: #### 1 [id number], [id number], 0660230, 1003947, 4415295, 0308439 #### [facility] [address] [place] [address] Platelets (Bld) [#/Vol] 306.0 E9/L Normal 150.0-500.0 [facility] Comment on above: Performed By: #### 1 [id number], [id number], 0778984, 0619876, 0983139, 8442137 #### [facility] [address] [place] [address] RBC (Bld) [#/Vol] 4.6 E12/L Normal 4.3-5.9 [facility] Comment on above: Performed By: #### 1 [id number], [id number], 5442491, 2904147, 2041382, 7800008 #### [facility] [address] [place] [address] WBC corrected for nucl RBC Auto (Bld) [#/Vol] 8.0 E9/L Normal 4.0-11.0 [facility] Comment on above: Performed By: #### 1 [id number], 68885175, 4699532, 3656619, 9978912, 2682526 #### [facility] [address] [place] [address] CMPon 11-12-2020 Albumin [Mass/Vol] 3.8 g/dL Normal 3.3-5.0 [facility] Comment on above: Performed By: #### 1 [id number], 90853298, 6000647, 9892126, 4279956, 4327463 #### [facility] [address] [place] [address]86 Albumin/Globulin (S) [Mass conc ratio] 1.1 Normal 1.1-2.2 [facility] Comment on above: Performed By: #### 1 [id number], 18356503, 6582006, 0966014, 6725844, 5817801 #### [facility] [address] [place] [address]5972 ALP [Catalytic activity/Vol] 72 Int._Unit/L Normal 21-98 [facility] Comment on above: Performed By: #### 1 [id number], 04554075, 5415180, 8060304, 1079506, 3253838 #### [facility] [address] [place] [address] ALT No additional P-5'-P [Catalytic activity/Vol] 17 Int._Unit/L Normal 6-46 [facility] Comment on above: Performed By: #### 1 [id number], [id number], 1457837, 7765778, 7830144, 7083568 #### [facility] [address] [place] [address] Anion gap [Moles/Vol] 11 mmol/L Normal 6-16 [facility] [facility] Comment on above: Performed By: #### 1 [id number], [id number], 8017660, 0091175, 5039211, 5051298 #### [facility] [address] [place] [address] AST [Catalytic activity/Vol] 19 Int._Unit/L Normal 5-43 [facility] Comment on above: Performed By: #### 1 [id number], 54972554, 2325625, 4019518, 2370549, 0212855 #### [facility] [address] [place] [address] Bilirubin [Mass/Vol] 0.8 mg/dL Normal 0.0-1.1 [facility] Comment on above: Performed By: #### 1 [id number], [id number], 2441589, 4142674, 7485941, 2919790 #### [facility] [address] [place] [address] Calcium [Mass/Vol] 8.8 mg/dL Low 8.9-11.1 [facility] Comment on above: Performed By: #### 1 [id number], 30300609, 4153749, 4210957, 2078418, 6333262 #### [facility] [address] [place] [address] Chloride [Moles/Vol] 105 mmol/L Normal 101-111 [facility] Comment on above: Performed By: #### 1 [id number], 22024592, 8647188, 0134185, 7236459, 7291800 #### [facility] [address] [place] [address] CO2 [Moles/Vol] 25 mmol/L Normal 21-31 [facility] Comment on above: Performed By: #### 1 8876510, 77222212, 0401323, 0046424, 3703078, 2587085 #### [facility] [address] [place] [address] Creatinine [Mass/Vol] 0.7 mg/dL Normal 0.5-1.3 [facility] Comment on above: Performed By: #### 1 1158884, 81956189, 6590739, 1564961, 3439641, 6756046 #### [facility] [address] [place] [address] Globulin (S) [Mass/Vol] 3.4 g/dL Normal 1.4-4.0 [facility] Comment on above: Performed By: #### 1 9613535, 27315103, 6723695, 7318396, 6272896, 5038081 #### [facility] [address] [place] [address] Glucose [Mass/Vol] 90 mg/dL Normal 55-199 [facility] Comment on above: Result Comment: If t his glucose result represents a fasting glucose, interpretation should refer to the following reference range: 55-99 mg/dL Performed By: #### 1 8094070, 94428996, 0540502, 2501675, 0971400, 2563375 #### [facility] [address] [place] [address] Potassium [Moles/Vol] 4.0 mmol/L Normal 3.5-5.3 [facility] Comment on above: Performed By: #### 1 1686402, 39853557, 7503551, 9003661, 4071998, 7241773 #### [facility] [address] [place] [address] Protein [Mass/Vol] 7.2 g/dL Normal 6.0-7.8 [facility] Comment on above: Performed By: #### 1 8567006, 10024004, 0236403, 3969555, 9623549, 1046531 #### [facility] [address] [place] [address] Sodium [Moles/Vol] 137 mmol/L Normal 135-145 [facility] Comment on above: Performed By: #### 1 4768504, 91646892, 6789904, 1763849, 3128640, 1497424 #### [facility] [address] [place] [address] Urea nitrogen [Mass/Vol] 8 mg/dL Normal 5-21 [facility] Comment on above: Performed By: #### 1 1086760, 40696414, 6107140, 5654719, 3045491, 8718216 #### [facility] [address] [place] [address] Urea nitrogen/Creatinine [Mass ratio] 11 No Units Normal 10-20 [facility] Comment on above: Performed By: #### 1 9339545, 28336988, 7090357, 5825450, 4135124, 5301908 #### [facility] [address] [place] [address] Family Medicine Office/Clini c Noteon 11-12-2020 Family Medicine Office/Clinic Note Chief Complaint STOCK ORDER LISTER here to discuss weight loss and a wheel blocker. History of Present Illness STOCK ORDER LISTER. 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 Here today to discuss weight loss. Previously was prescribed phentermine, yet noted exacerbation of her underlying bipolar disorder with use. Over the past 9 years patient has had 3 children, has gained approximately 60-65 pounds and unable to lose weight despite her weight loss efforts. Has trialed keto diet which was unsustainable. Participates in physical activity twice a week at local [employer], elliptical and treadmill. Denies history of childhood obesity. Does note a history of migraine headaches as well, does take Topamax for this. Would like to be evaluated by dietitian/weight loss clinic in [place] as one of her friends has had success with this. Also contributes weight gain to previous medication management for bipolar disorder, was prescribed aripiprazole and noted weight gain with use. Currently taking buspirone, lamotrigine, topiramate and venlafaxine. Follows psychiatrist. Review of Systems PHQ Score Initial Depression Screen Score: 2 Review of Systems: See HPI. Constitutional: Denies fever or chills, anorexia. Respiratory: Denies cough, wheezing or difficulty breathing. Endocrine: Denies frequent urination, increased thirst. Denies skin, hair, fingernail changes or hot/cold intolerance. Notes difficulty losing weight. Neurologic: Denies weakness, numbness or tingling, headaches. Gastrointestinal: See HPI. Physical Exam Vitals & Measurements T: 36.7 ?C (Tympanic) HR: 76(Peripheral) RR: 12 BP: 108/82 HT: 169 cm HT: 169.0 cm WT: 102.7 kg WT: 102.7 kg BMI: 35.96 General: Well developed, well nourished, female adult in no acute distress sitting upright on exam table. Engages with provider appropriately. Head: Normocephalic/atraum atic. Eyes: No conjunctival irritation, pupils symmetric. Wears corrective lenses. Ears: Grossly normal hearing. Nose: No discharge. Mouth: MMM, talkative. Neck: Supple. No carotid bruits, bilaterally. Thyroid not enlarged. Chest: No distress. Lungs: Normal respiratory effort and clear to auscultation. No rhonchi or wheeze. Cardio: RRR, without murmur. Pulses: Peripheral pulses intact. Abdomen: Normal bowel sounds noted. Abdomen is obese, soft and nontender. Musculoskeletal: Steady gait. Extremities: No edema. Neurologic: Grossly normal. Skin: Skin is fairly tanned, warm and dry. Lymph Nodes: No cervical adenopathy, nodes normal. Mental Status: Alert and cooperative. Pleasant, appreciative. Assessment/Plan 1. Weight gain (R63.5: Abnormal weight gain) Patient notes weight gain with difficulty losing weight. Patient would like to proceed with labs today, will call with results. Patient would also like to be further evaluated per dietitian/weight loss clinic in [place], referral provided. Ordered: CBC w/ Auto Diff Comprehensive Metabolic Panel [facility] [place] Ambulatory Referral Lab Specimen Collect [id number] TSH With T4fr Reflex 2. Migraine headache (G43.909: Migraine, unspecified, not intractable, without status migrainosus) Well-controlled with use of topiramate. 3. Bipolar disorder (F31.9: Bipolar disorder, unspecified) Follows with psychiatry, notes recent restart of medications. Keep follow-up appointments as scheduled. Ordered: [facility] [place] Referral 4. Medication monitoring encounter (Z51.81: Encounter for therapeutic drug level monitoring) See notes above. Ordered: CBC w/ Auto Diff Comprehensive Metabolic Panel Lab Specimen Collect [id number] TSH With T4fr Reflex 5. BMI 35.0-35.9,adult (Z68.35: Body mass index [BMI] 35.0-35.9, adult) Routine physical exercise and a healthy diet to promote weight reduction and improve overall health encouraged. Ordered: [facility] [place] Ambulatory Referral 6. Obesity due to excess calories (E66.09: Other obesity due to excess calories) See above. Ordered: [facility] [place]ulatory Referral 7. Screening for lipid disorders (Z13.220: Encounter for screening for lipoid disorders) Patient is fasting today, will obtain lipid profile and call with results. Ordered: Lab Specimen Collect [id number] Lipid Panel Please Note: Portions of this chart may have been created using [employer] voice recognition software. Occasional wrong-word or sound-like substitutions may have occurred due to inherent limitations of the voice recognition software. Please read the chart carefully and recognize, using context, where the substitutions have occurred. Follow-up With When Contact Information Trudy MEHTA CNP In [address] [place], [place] [id number]- Additional Instructions: Patient Education Obesity, Adult Problem List/Past Medical History Ongoing Bipolar disorder BMI 35.0-35.9,adult Medication monitoring encounter Migraine headache Obesity due to excess calories Weight gain Historical No qualifying data Procedure/Surg (more content not included)... Normal [facility] Comment on above: Result Comment: Elec tronically Signed By: Trudy MEHTA CNP\.br\Date and Time Signed: 11/12/20 09:26 EDT Lipid Panelon 11-12-2020 Cholesterol [Mass/Vol] 163 mg/dL Normal 120-200 [facility] Comment on above: Performed By: #### 1 [id number], 50350313, 8162095, 2818259, 6646740, 7371631 #### [facility] [address] [place] [address] Cholesterol in HDL [Mass/Vol] 38 mg/dL Invalid Interpretation Code [facility] Comment on above: Result Comment: HDL > or equal to 60 mg/dL: Low cardiovascular risk HDL < 40 mg/dL : High cardiovascular risk Performed By: #### 1 1838038, 26847674, 7373609, 0917804, 1936543, 7824255 #### [facility] [address] [place] [address] Cholesterol in LDL [Mass/Vol] 109 mg/dL Normal <=129 [facility] Comment on above: Performed By: #### 1 7654901, 62411464, 4665752, 5377949, 8472312, 5179301 #### [facility] [address] [place] [address] Cholesterol in VLDL [Mass/Vol] 22 mg/dL Normal 7-40 [facility] Comment on above: Performed By: #### 1 4421090, 39923626, 1378075, 3415203, 3727083, 1913986 #### [facility] [address] [place] [address] Triglyceride [Mass/Vol] 109 mg/dL Normal <=149 [facility] Comment on above: Performed By: #### 1 0752064, 59617126, 3080673, 8743807, 0237534, 6144441 #### [facility] [address] [place] [address] Patient Educationon 11-13-19 21 Patient Education Gastroenterology Obesity, Adult Obesity is the condition of having too much total body fat. Being overweight or obese means that your weight is greater than what is considered healthy for your body size. Obesity is determined by a measurement called BMI. BMI is an estimate of body fat and is calculated from height and weight. For adults, a BMI of 30 or higher is considered obese. Obesity can lead to other health concerns and major illnesses, including: ? Stroke. ? Coronary artery disease (CAD). ? Type 2 diabetes. ? Some types of cancer, including cancers of the colon, breast, uterus, and gallbladder. ? Osteoarthritis. ? High blood pressure (hypertension). ? High cholesterol. ? Sleep apnea. ? Gallbladder stones. ? Infertility problems. What are the causes? Common causes of this condition include: ? Eating daily meals that are high in calories, sugar, and fat. ? Being born with genes that may make you more likely to become obese. ? Having a medical condition that causes obesity, including: ? Hypothyroidism. ? Polycystic ovarian syndrome (PCOS). ? Binge-eating disorder. ? Nicola syndrome. ? Taking certain medicines, such as steroids, antidepressants, and seizure medicines. ? Not being physically active (sedentary lifestyle). ? Not getting enough sleep. ? Drinking high amounts of sugar-sweetened beverages, such as soft drinks. What increases the risk? The following factors may make you more likely to develop this condition: ? Having a family history of obesity. ? Being a woman of descent. ? Being a man of descent. ? Living in an area with limited access to: ? [place], recreation centers, or sidewalks. ? Healthy food choices, such as grocery stores and [employer] markets. What are the signs or symptoms? The main sign of this condition is having too much body fat. How is this diagnosed? This condition is diagnosed based on: ? Your BMI. If you are an adult with a BMI of 30 or higher, you are considered obese. ? Your waist circumference. This measures the distance around your waistline. ? Your skinfold thickness. Your health care provider may gently pinch a fold of your skin and measure it. You may have other tests to check for underlying conditions. How is this treated? Treatment for this condition often includes changing your lifestyle. Treatment may include some or all of the following: ? Dietary changes. This may include developing a healthy meal plan. ? Regular physical activity. This may include activity that causes your heart to beat faster (aerobic exercise) and strength training. Work with your health care provider to design an exercise program that works for you. ? Medicine to help you lose weight if you are unable to lose 1 pound a week after 6 weeks of healthy eating and more physical activity. ? Treating conditions that cause the obesity (underlying conditions). ? Surgery. Surgical options may include gastric banding and gastric bypass. Surgery may be done if: ? Other treatments have not helped to improve your condition. ? You have a BMI of 40 or higher. ? You have life-threatening health problems related to obesity. Follow these instructions at home: Eating and drinking ? Follow recommendations from your health care provider about what you eat and drink. Your health care provider may advise you to: ? Limit fast food, sweets, and processed snack foods. ? Choose low-fat options, such as low-fat milk instead of whole milk. ? Eat 5 or more servings of fruits or vegetables every day. ? Eat at home more often. This gives you more control over what you eat. ? Choose healthy foods when you eat out. ? Learn to read food labels. This will help you understand how much food is considered 1 serving. ? Learn what a healthy serving size is. ? Keep low-fat snacks available. ? Limit sugary drinks, such as soda, fruit juice, sweetened iced tea, and flavored milk. ? Drink enough water to keep your urine pale yellow. ? Do not follow a fad diet. Fad diets can be unhealthy and even dangerous. Physical activity ? Exercise regularly, as told by your health care provider. ? Most adults should get up to 150 minutes of moderate-intensity exercise every week. ? Ask your health care provider what types of exercise are safe for you and how often you should exercise. ? Warm up and stretch before being active. ? Cool down and stretch after being active. ? Rest between periods of activity. Lifestyle ? Work with your health care provider and a dietitian to set a weight-loss goal that is healthy and reasonable for you. ? Limit your screen time. ? Find ways to reward yourself that do not involve food. ? Do not drink alcohol if: ? Your health care provider tells you not to drink. ? You are , may be , or are planning to become . ? If you drink alcohol: ? Limit how much you use to: ? 0?1 drink (more content not included)... Normal [facility] Physician Referralon 021 Physician Referral [id number] Normal [facility] TSH With T4fr Reflexon 11-12 TSH Qn 1.98 m[IU]/L Normal 0.34-5.60 [facility] Comment on above: Performed By: #### 1 [id number], 23581081, 9044726, 3604861, 3646013, 9351289 #### [facility] [address] [place] [address] eGFRon 11-12-2020 GFR/1.73 sq M.predicted among blacks MDRD (S/P/Bld) [Vol rate/Area] mL/min/{1.73_m2} Normal >=59 [facility] Comment on above: Order Comment: Order added by Discern Expert. Result Comment: eGFR is race adjusted. AA=. Performed By: #### 1 3167236, 99484244, 1253904, 0965087, 0119786, 9767529 #### [facility] [address] [place] [address] GFR/1.73 sq M.predicted among non-blacks MDRD (S/P/Bld) [Vol rate/Area] mL/min/{1.73_m2} Normal >=59 [facility] Comment on above: Order Comment: Order added by Discern Expert. Result Comment: Test Examiner sheila kidney disease could be indicated at eGFR's of less than 60 mL/min/1.73m2. Kidney failure is indicated at less than 15 mL/min/1.73m2. Performed By: #### 1 [id number], 91160069, 6586224, 1108813, 4049701, 2562823 #### [facility] [address] [place] [address] Amylaseon 09-18-2017 Amylase 41 U/L Normal 28-100 [facility] Comment on above: Result Comment: Perf ormed at [facility] [address] [place] [address] ([phone] Performed By: #### C DP, BRETT, BMPX, LIP, LIVP ####[facility] [place] [address] Basic Metab w/rfx MGon 09-18 (cont.) Normal [facility] Comment on above: Result Comment: Aver age GFR for 20-29 years old: 116 mL/min/1.73sq mChronic Kidney Disease: <60 mL/min/1.73sq mKidney failure: <15 mL/min/1.73sq meGFR calculated using average adult body mass. Additional eGFR calculator available at:http://[email or web address].XLerant/multiple_crcl_2012.htmPerformed at [facility] [address] [place] [address] Performed By: #### C DP, BRETT, BMPX, LIP, LIVP ####[facility] [place] [address] Anion gap 11 mmol/L Normal 9-17 [facility] Comment on above: Performed By: #### C DP, BRETT, BMPX, LIP, LIVP ####[address] [place] [address] BUN/CRE Ratio 16 Normal 9-20 [facility] Comment on above: Performed By: #### C DP, BRETT, BMPX, LIP, LIVP ####[facility] [place] [address] Calcium 9.2 mg/dL Normal 8.6-10.4 [facility] Comment on above: Performed By: #### C DP, BRETT, BMPX, LIP, LIVP ####[address] [place] [address] Chloride 102 mmol/L Normal 98-107 [facility] Comment on above: Performed By: #### C DP, BRETT, BMPX, LIP, LIVP ####[address] [place] [address] CO2 28 mmol/L Normal 20-31 [facility] Comment on above: Performed By: #### C DP, BRETT, BMPX, LIP, LIVP ####[address] [place] [address] Creatinine 0.64 mg/dL Normal 0.50-0.90 [facility] Comment on above: Performed By: #### C DP, BRETT, BMPX, LIP, LIVP ####[facility] [place] [address] eGFR (non-black) mL/min/{1.73_m2} Normal >60 [facility] Comment on above: Performed By: #### C DP, BRETT, BMPX, LIP, LIVP ####[address] [place] [address] Glucose mass conc 91 mg/dL Normal 70-99 [facility] Comment on above: Performed By: #### C DP, BRETT, BMPX, LIP, LIVP ####[address] [facility] [place] [address] Potassium molar conc 4.2 mmol/L Normal 3.7-5.3 [facility] Comment on above: Performed By: #### C DP, BRETT, BMPX, LIP, LIVP ####[address] [place] [address] Sodium 141 mmol/L Normal 135-144 [facility] Comment on above: Performed By: #### C DP, BRETT, BMPX, LIP, LIVP ####[address] [place] [address] Urea nitrogen 10 mg/dL Normal 6-20 [facility] Comment on above: Performed By: #### C DP, BRETT, BMPX, LIP, LIVP ####[address] [place] [address] Staging: NOT REPORTED Normal [facility] Comment on above: Performed By: #### C DP, BRETT, BMPX, LIP, LIVP ####[address] [place] [address] CBC with Diffon 09-18-2017 Abs. Basophil 0.00 k/uL Normal 0.0-0.2 [facility] Comment on above: Result Comment: Perf ormed at [facility] [address] [place] [address] Performed By: #### C DP, BRETT, BMPX, LIP, LIVP ####[facility] [place] [address] Abs.Neutrophil (Seg) 6.20 k/uL Normal 2.5-7.0 [facility] Comment on above: Performed By: #### C DP, BRETT, BMPX, LIP, LIVP ####[address] [place] [address] Auto Diff Performed YES Normal [facility] Comment on above: Performed By: #### C DP, BRETT, BMPX, LIP, LIVP ####[address] [place] [address] Basophils/100 WBC Auto (Bld) 0 % Normal 0-2 [facility] Comment on above: Performed By: #### C DP, BRETT, BMPX, LIP, LIVP ####[address] [place] [address] Eosinophils 0.10 10*3/uL Normal 0.0-0.4 [facility] Comment on above: Performed By: #### C DP, BRETT, BMPX, LIP, LIVP ####[address] [place] [address] Eosinophils/100 leukocytes 1 % Normal 0-5 [facility] Comment on above: Performed By: #### C DP, BRETT, BMPX, LIP, LIVP ####[address] [place] [address] Erythrocyte distribution width Auto Ratio (RBC) 13.2 % Normal 12.1-15.2 [facility] Comment on above: Performed By: #### C DP, BRETT, BMPX, LIP, LIVP ####[address] [place] [address] Erythrocytes (RBC) 4.74 10*6/uL Normal 4.0-5.2 [facility] Comment on above: Performed By: #### C DP, BRETT, BMPX, LIP, LIVP ####[address] [place] [address] Hematocrit (HCT) 41.3 % Normal 36-[address] [facility] Comment on above: Performed By: #### C DP, BRETT, BMPX, LIP, LIVP ####[address] [place] [address] Hemoglobin mass conc (Bld) 14.1 g/dL Normal 12.0-16.0 [facility] Comment on above: Performed By: #### C DP, BRETT, BMPX, LIP, LIVP ####[address] [place] [address] Lymphocytes 2.30 10*3/uL Normal 1.0-4.8 [facility] Comment on above: Performed By: #### C DP, BRETT, BMPX, LIP, LIVP ####[address] [place] [address] Lymphocytes/100 leukocytes 25 % Normal 15-40 [facility] Comment on above: Performed By: #### C DP, BRETT, BMPX, LIP, LIVP ####[address] [place] [address] MCH 29.6 pg Normal 26-34 [facility] Comment on above: Performed By: #### C DP, BRETT, BMPX, LIP, LIVP ####[address] [place] [address] MCHC mass conc (RBC) 34.0 g/dL Normal 31-37 [facility] Comment on above: Performed By: #### C DP, BRETT, BMPX, LIP, LIVP ####[facility] [place] [address] MCV 87.1 fL Normal 80-100 [facility] Comment on above: Performed By: #### C DP, BRETT, BMPX, LIP, LIVP ####[facility] [place] [address] Monocytes 0.60 10*3/uL Normal 0.0-1.0 [facility] Comment on above: Performed By: #### C DP, BRETT, BMPX, LIP, LIVP ####[facility] [place] [address] Monocytes/100 leukocytes 6 % Normal 4-8 [facility] Comment on above: Performed By: #### C DP, BRETT, BMPX, LIP, LIVP ####[address] [place] [address] Neutrophil (Seg) 68 % Normal 47-[address] [facility] Comment on above: Performed By: #### C DP, BRETT, BMPX, LIP, LIVP ####[address] [place] [address] Platelets 273 10*3/uL Normal 140-450 [facility] Comment on above: Performed By: #### C DP, BRETT, BMPX, LIP, LIVP ####[address] [place] [address] WBC (Leukocytes) 9.1 10*3/uL Normal 3.5-11.0 [facility] Comment on above: Performed By: #### C DP, BRETT, BMPX, LIP, LIVP ####[address] [place] [address] Erythrocyte morphology NOT REPORTED Normal [facility] Comment on above: Performed By: #### C DP, BRETT, BMPX, LIP, LIVP ####[address] [facility] [place] [address] Erythrocytes (RBC) NOT REPORTED Normal [facility] Comment on above: Performed By: #### C DP, BRETT, BMPX, LIP, LIVP ####[facility] [facility] [address] [place] [address] Granulocytes/100 WBC (Bld) NOT REPORTED Normal 0.00-0.30 [facility] Comment on above: Performed By: #### C DP, BRETT, BMPX, LIP, LIVP ####[facility] [facility] [place] [address] Immature granulocytes #/vol (Bld) NOT REPORTED Normal 0 [facility] Comment on above: Performed By: #### C DP, BRETT, BMPX, LIP, LIVP ####[place] [address] [place] [address] Platelet mean volume (PMV) NOT REPORTED Normal 6.0-12.0 [facility] Comment on above: Performed By: #### C DP, BRETT, BMPX, LIP, LIVP ####[facility] [place] [address] Platelets NOT REPORTED Normal [facility] Comment on above: Performed By: #### C DP, BRETT, BMPX, LIP, LIVP ####[place] [address] [place] [address] WBC Morphology NOT REPORTED Normal 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 [address] Performed By: #### C DP, BRETT, BMPX, LIP, LIVP ####[facility] [facility] [place] [address] Liver Profileon 09-18-2017 Alanine aminotransferase (ALT) 10 U/L Normal 5-33 [facility] Comment on above: Performed By: #### C DP, BRETT, BMPX, LIP, LIVP ####[place] [address] [facility] [place] [address] Albumin 4.1 g/dL Normal 3.5-5.2 [facility] Comment on above: Performed By: #### C DP, BRETT, BMPX, LIP, LIVP ####[place] [address] [place] [address] Alkaline Phos 79 U/L Normal 35-104 [facility] Comment on above: Performed By: #### C DP, BRETT, BMPX, LIP, LIVP ####[place] [address] [place] [address] Aspartate aminotransferase (AST) 13 U/L Normal <32 [facility] Comment on above: Performed By: #### C DP, BRETT, BMPX, LIP, LIVP ####[place] [address] [place] [address] Bilirubin (direct) mg/dL Normal <0.31 [facility] Comment on above: Performed By: #### C DP, BRETT, BMPX, LIP, LIVP ####[place] [address] [place] [address] Bilirubin Ql (U) 0.21 mg/dL Low 0.30-1.[address] [facility] Comment on above: Performed By: #### C DP, BRETT, BMPX, LIP, LIVP ####[place] [address] [place] [address] Bilirubin, Indirect CANNOT BE CALCULATED Normal 0.00-1 .00 [facility] Comment on above: Performed By: #### C DP, BRETT, BMPX, LIP, LIVP ####[facility] [place] [address] Protein 7.2 g/dL Normal 6.4-8.3 [facility] Comment on above: Result Comment: Perf ormed at [facility] [address] [place] [address] Performed By: #### C DP, BRETT, BMPX, LIP, LIVP ####[place] [address] [facility] [place] [address] Albumin/Globulin Ratio NOT REPORTED Normal 1.0-2.5 [facility] Comment on above: Performed By: #### C DP, BRETT, BMPX, LIP, LIVP ####[address] [place] [address] Globulin NOT REPORTED Normal 1.5-3.8 [facility] Comment on above: Performed By: #### C DP, BRETT, BMPX, LIP, LIVP ####[place] [address] [place] [address] Urinalysis, Routineon 2017 Acetaminophen mass conc Negative Normal NEG [facility] Comment on above: Performed By: #### MARGRET Carcamo ####[place] [address] [facility] [place] [address] Bilirubin (direct) Negative Normal NEG [facility] Comment on above: Performed By: #### MARGRET Carcamo ####[place] [address] [place] [address] Comment Normal [facility] Comment on above: Result Comment: Perf ormed at [facility] [address] [place] [address] Performed By: #### U A, UMICAO ####[facility] [place] [address] Hemoglobin mass conc (Bld) TRACE Abnormal NEG [facility] Comment on above: Performed By: #### U A, UMICAO ####[facility] [place] [address] Nitrite,Ur Negative Normal NEG [facility] Comment on above: Performed By: #### U A, UMICAO ####[facility] [place] [address] Turbidity CLEAR Normal CLEAR [facility] Comment on above: Performed By: #### U A, UMICAO ####[facility] [place] [address] Urine, color YELLOW Normal YEL [facility] Comment on above: Performed By: #### U A, UMICAO ####[facility] [place] [address] Urine, glucose presence Negative Normal NEG [facility] Comment on above: Performed By: #### U A, UMICAO ####[facility] [place] [address] Urine, leukocyte esterase presence Negative Normal NEG [facility] Comment on above: Performed By: #### U A, UMICAO ####[facility] [place] [address] Urine, pH 7.0 [pH] Normal 5.0-8.0 [facility] Comment on above: Performed By: #### U A, UMICAO ####[facility] [place] [address] Urine, protein presence Negative Normal NEG [facility] Comment on above: Performed By: #### U A, UMICAO ####[facility] [place] [address] Urine, specific gravity 1.010 Normal 1.005-1.030 [facility] Comment on above: Performed By: #### U A, UMICAO ####[facility] [place] [address] Urobilinogen,Ur Normal Normal NORM [facility] Comment on above: Performed By: #### U Gwen, UMICAO ####[facility] [place] [address] Urinalysis,Microon 8 ----- Normal [facility] Comment on above: Performed By: #### U A, UMICAO ####[facility] [place] [address] Mucus Strands RARE Abnormal NONE [facility] Comment on above: Result Comment: Perf ormed at [facility] [address] [place] [address] Performed By: #### U Gwen UMICAO ####[facility] [place] [address] Urine, epithelial cells in sediment 10 TO 20 Normal [facility] Comment on above: Performed By: #### U Gwen, UMICAO ####[facility] [place] [address] Urine, erythrocytes 0 TO 2 Normal 0-2 [facility] Comment on above: Performed By: #### U A, UMICAO ####[facility] [place] [address] Epithelial, Renal NOT REPORTED Normal 0 [facility] Comment on above: Performed By: #### U A, UMICAO ####[facility] [place] [address] Other Observations NOT REPORTED Normal N[facility] Comment on above: Performed By: #### U A, UMICAO ####[facility] [place] [address] Trichomonas NOT REPORTED Normal NONE [facility] Comment on above: Performed By: #### U A, UMICAO ####[facility] [place] [address] Urine WBC's NOT REPORTED Normal 0 [facility] Comment on above: Performed By: #### U A, UMICAO ####[facility] [place] [address] Urine, amorphous sediment presence in sediment NOT REPORTED Normal NONE [facility] Comment on above: Performed By: #### U A, UMICAO ####[facility] [place] [address] Urine, bacteria in sediment NOT REPORTED Normal NONE [facility] Comment on above: Performed By: #### U A, UMICAO ####[facility] [place] [address] Urine, casts in sediment NOT REPORTED Normal [facility] Comment on above: Performed By: #### U A, UMICAO ####[facility] [place] [address] Urine, crystals in sediment NOT REPORTED Normal NONE [facility] Comment on above: Performed By: #### U A, UMICAO ####[facility] [place] [address] Urine, yeast presence in sediment NOT REPORTED Normal NONE [facility] Comment on above: Performed By: #### U A, UMICAO ####[facility] [place] [address] Vital Signs Date Time Vital Sign Value Performing Clinician Facility 05-22-2023 10:03-0500 Diastolic blood pressure 68 mm[Hg] Yannick Lynch DO Work Phone: [facility] 05-22-2023 10:03-0500 Systolic blood pressure 110 mm[Hg] Yannick Lynch DO Work Phone: [facility] 05-22-2023 09:59-0500 Body temperature 97.59 [degF] Yannick Lynch DO Work Phone: [facility] [employer] 05-22-2023 09:59-0500 Heart rate 64 /min Yannick Lynch DO Work Phone: [facility] 05-22-2023 09:59-0500 Respiratory rate 16 /min Yannick Lynch DO Work Phone: [facility] 05-22-2023 09:59-0500 SaO2% (BldA) [Mass fraction] 98 % Yannick Lynch DO Work Phone: [facility] [employer] 05-24-2022 10:17-0500 Body height 167.6 cm Daksha Kevin DO Work Phone: [facility] 05-24-2022 10:17-0500 Body mass index (BMI) [Ratio] 35.99 kg/m2 Daksha Brown DO Work Phone: [facility] 05-24-2022 10:17-0500 Body temperature 98.01 [degF] Daksha Brown DO Work Phone: [facility] 05-24-2022 10:17-0500 Body weight 101.15 kg Daksha Brown DO [facility] 05-24-2022 10:17-0500 Diastolic blood pressure 76 mm[Hg] Daksha Brown DO Work Phone: [facility] 05-24-2022 10:17-0500 Heart rate 69 /min Daksha Brown DO [facility] 05-24-2022 10:17-0500 SaO2% (BldA) [Mass fraction] 99 % Daksha Brown DO Work Phone: [facility] 05-24-2022 10:17-0500 Systolic blood pressure 116 mm[Hg] Daksha Brown DO Work Phone: [facility] 01-29-2021 11:45-0400 Body height 170.81 cm Naeem Huitron Jr. Other [employer] Other 01-29-2021 11:45-0400 Body mass index (BMI) [Ratio] 35.05 kg/m2 Naeem Huitron Jr. Other [employer] Other 01-29-2021 11:45-0400 Body weight 102.29 kg Naeem Huitron Jr. Other [employer] Other 01-29-2021 11:45-0400 Diastolic blood pressure 62 mm[Hg] Naeem Huitron Jr. Other [employer] Other 01-29-2021 11:45-0400 Respiratory rate 18 /min Naeem Huitron Jr. Other [employer] Other 01-29-2021 11:45-0400 SaO2% (BldA) [Mass fraction] 100 % Naeem Huitron Jr. Other [employer] Other 01-29-2021 11:45-0400 Systolic blood pressure 95 mm[Hg] Naeem Huitron Jr. Other [employer] Other Encounters Encounter Date Encounter Type Care Provider Facility Start: 08-14-2023 End: 08-14-2023 ambulatory LIZZIE BARNARD Not Available Start: 05-22-2023 End: 05-22-2023 Emergency department patient visit [facility] Start: 05-22-2023 End: 05-22-2023 Emergency department patient visit Yannick Lynch DO Work Phone: [facility] ED Comment on above: Sprain of right foot , initial encounter (Primary Dx) Start: 08-19-2022 ambulatory DAKSHA Espinoza [facility] Start: 07-01-2022 ambulatory DAKSHA Espinoza [facility] Start: 05-24-2022 ambulatory DAKSHA Espinoza [facility] Start: 05-24-2022 End: 05-24-2022 Office outpatient new 60 minutes Daksha Brown DO Work Phone: [facility] Comment on above: Gastroesophageal ref lux disease, unspecified whether esophagitis present (Primary Dx); Obesity (BMI 30-39.9); Hypersomnolence Start: 08-13-2021 End: 08-13-[address] LIZZIE BARNARD Facility:[facility] Start: 08-10-[address] LIZZIE BARNARD Facility :[facility] Start: 08-03-2021 Encounter for other preprocedural examination DR LIZZIE BARNARD [facility] Start: 07-30-2021 End: 07-31-2021 ambulatory CELESTE BURT Facility:[facility] Start: 07-30-2021 End: 07-31-2021 Encounter for other preprocedural examination DR LIZZIE BARNARD Facility:[facility] Start: 07-20-2021 End: 07-21-[address] LIZZIE BARNARD Facility:[facility] Start: 06-29-2021 End: 06-29-[address] LIZZIE BARNARD Facility:[facility] Start: 04-29-2021 End: 04-29-2021 ambulatory Naeem Huitron Other [employer] Other Start: 04-29-2021 Telephone encounter Naeem larios [facility] Start: 01-29-2021 Nutrition therapy [facility] Start: 11-13-2020 ambulatory VERONICA ARMSTRONG Facility:[facility] Start: 09-18-2017 End: 09-18-2017 Emergency department patient visit YANNICK CRIS [facility] Procedures Date Procedure Procedure Detail Performing Clinician Start: 05-22-2023 Radex foot complete minimum 3 views Stephanie Malhotra MD Work Phone: Start: 09-18-2017 Microscopic urinalysis YANNICK LYNCH Start: 09-18-2017 Urnls dip stick/tabl et rgnt auto w/o microscopy YANNICK LYNCH Start: 09-18-2017 Assay of amylase NACHO D CRIS Start: 09-18-2017 Assay of lipase YANNICK LYNCH Start: 09-18-2017 BASIC METABOLIC PANE L W/ REFLEX TO MG FOR LOW K YANNICK LYNCH Start: 09-18-2017 Blood count complete auto&auto difrntl wbc YANNICK LYNCH Start: 09-18-2017 Hepatic function panel YANNICK LYNCH Plan of Treatment Date Care Activity Detail Author Start: 11-01-2022 Influenza vaccination Flu vaccine (# 1) [facility] Start: 06-20-2022 End: 06-20-2022 Patient encounter procedure 06/20/2022 Appointment Nutrition and Dietetics Ramón Cisneros, RD [address] [place] [address] [facility] Start: 05-24-2022 End: 05-24-2023 B12/folate level B12 & FOLATE Lab Routine Obesity (BMI 30-39.9) Gastroesophageal reflux disease, unspecified whether esophagitis present Hypersomnolence Expected: 05/24/2022, Expires: 05/24/2023 [facility] Comment on above: Expected: 05/24/2022 , Expires: 05/24/2023 Start: 05-24-2022 End: 05-24-2023 Complete blood count with white cell differential, automated CBC, EDIF, PLATELET Lab Routine Obesity (BMI 30-39.9) Gastroesophageal reflux disease, unspecified whether esophagitis present Hypersomnolence Expected: 05/24/2022, Expires: 05/24/2023 [facility] Comment on above: Expected: 05/24/2022 , Expires: 05/24/2023 Start: 05-24-2022 End: 05-24-2023 Comprehensive metabolic 2000 panel - Serum or Plasma COMPREHENSIVE METABOLIC PANEL Lab Routine Obesity (BMI 30-39.9) Gastroesophageal reflux disease, unspecified whether esophagitis present Hypersomnolence Expected: 05/24/2022, Expires: 05/24/2023 [facility] Comment on above: Expected: 05/24/2022 , Expires: 05/24/2023 Start: 05-24-2022 End: 05-24-2023 DIAGNOSTIC UPPER ENDOSCOPY DIAGNOSTIC UPPER ENDOSCOPY GI/Bronch Routine Obesity (BMI 30-39.9) Gastroesophageal reflux disease, unspecified whether esophagitis present Hypersomnolence Expected: 05/24/2022, Expires: 05/24/2023 [facility] Comment on above: Expected: 05/24/2022 , Expires: 05/24/2023 Start: 05-24-2022 End: 05-24-2023 Hemoglobin A1c/Hemoglobin.total in Blood HEMOGLOBIN A1C Lab Routine Obesity (BMI 30-39.9) Gastroesophageal reflux disease, unspecified whether esophagitis present Hypersomnolence Expected: 05/24/2022, Expires: 05/24/2023 [facility] Comment on above: Expected: 05/24/2022 , Expires: 05/24/2023 Start: 05-24-2022 End: 05-24-2023 Iron [Mass/volume] in Serum or Plasma IRON Lab Routine Obesity (BMI 30-39.9) Gastroesophageal reflux disease, unspecified whether esophagitis present Hypersomnolence Expected: 05/24/2022, Expires: 05/24/2023 [facility] Comment on above: Expected: 05/24/2022 , Expires: 05/24/2023 Start: 05-24-2022 End: 05-24-2023 LIPID PANEL W CALCULATED LDL LIPID PANEL W CALCULATED LDL Lab Routine Obesity (BMI 30-39.9) Gastroesophageal reflux disease, unspecified whether esophagitis present Hypersomnolence Expected: 05/24/2022, Expires: 05/24/2023 [facility] Comment on above: Expected: 05/24/2022 , Expires: 05/24/2023 Start: 05-24-2022 End: 05-24-2023 Standard ECG ECG ECG Routine Obesity (BMI 30-39.9) Gastroesophageal reflux disease, unspecified whether esophagitis present Hypersomnolence Expected: 05/24/2022, Expires: 05/24/2023 [facility] Comment on above: Expected: 05/24/2022 , Expires: 05/24/2023 Start: 05-24-2022 End: 05-24-2023 Thyrotropin [Units/volume] in Serum or Plasma TSH Lab Routine Obesity (BMI 30-39.9) Gastroesophageal reflux disease, unspecified whether esophagitis present Hypersomnolence Expected: 05/24/2022, Expires: 05/24/2023 [facility] Comment on above: Expected: 05/24/2022 , Expires: 05/24/2023 Start: 05-24-2022 End: 05-24-2023 Thyroxine (T4) free [Mass/volume] in Serum or Plasma T4 FREE Lab Routine Obesity (BMI 30-39.9) Gastroesophageal reflux disease, unspecified whether esophagitis present Hypersomnolence Expected: 05/24/2022, Expires: 05/24/2023 [facility] Comment on above: Expected: 05/24/2022 , Expires: 05/24/2023 Start: 05-24-2022 End: 05-24-2023 VITAMIN A VITAMIN A Lab Routine Obesity (BMI 30-39.9) Gastroesophageal reflux disease, unspecified whether esophagitis present Hypersomnolence Expected: 05/24/2022, Expires: 05/24/2023 [facility] Comment on above: Expected: 05/24/2022 , Expires: 05/24/2023 Start: 05-24-2022 End: 05-24-2023 VITAMIN B1 VITAMIN B1 Lab Routine Obesity (BMI 30-39.9) Gastroesophageal reflux disease, unspecified whether esophagitis present Hypersomnolence Expected: 05/24/2022, Expires: 05/24/2023 [facility] Comment on above: Expected: 05/24/2022 , Expires: 05/24/2023 Start: 05-24-2022 End: 05-24-2023 VITAMIN D (25-HYDROXY,TOTAL) VITAMIN D (25-HYDROXY,TOTAL) Lab Routine Obesity (BMI 30-39.9) Gastroesophageal reflux disease, unspecified whether esophagitis present Hypersomnolence Expected: 05/24/2022, Expires: 05/24/2023 [facility] Comment on above: Expected: 05/24/2022 , Expires: 05/24/2023 Start: 05-24-2022 End: 05-24-2023 VITAMIN E VITAMIN E Lab Routine Obesity (BMI 30-39.9) Gastroesophageal reflux disease, unspecified whether esophagitis present Hypersomnolence Expected: 05/24/2022, Expires: 05/24/2023 [facility] Comment on above: Expected: 05/24/2022 , Expires: 05/24/2023 Start: 05-24-2022 End: 05-24-2023 XR Chest PA and Lateral XR CHEST PA AND LATERAL Imaging Routine Obesity (BMI 30-39.9) Gastroesophageal reflux disease, unspecified whether esophagitis present Hypersomnolence Expected: 05/24/2022, Expires: 05/24/2023 [facility] Comment on above: Expected: 05/24/2022 , Expires: 05/24/2023 Start: 12-02-2021 Influenza vaccination INFLUENZA VACC INE (#1) [facility] Start: 06-21-2021 DTaP/Tdap/Td vaccine (2 - Td or Tdap) DTaP/Tdap/Td vaccine (2 - Td or Tdap) [facility] Start: 2020 Screening for malign ant neoplasm of cervix [facility] Start: 2011 Screening for malign ant neoplasm of cervix [facility] Start: 2009 Third diphtheria, tetanus and acellular pertussis (DTaP) vaccination TDAP (ADULT) [facility] Start: 2008 Hepatitis C screening Hepatitis C sc reen [facility] Start: 2005 HIV screening [facility] Start: 2002 Depression Screen Depression Screen [facility] Start: 1991 Varicella vaccine (1 of 2 - 2-dose childhood series) Varicella vaccine (1 of 2 - 2-dose childhood series) [facility] Start: 1990 COVID-19 VACCINE (#1) COVID-19 VACCI NE (#1) [facility] Start: 1990 Hepatitis B vaccine (1 of 3 - 3-dose series) Hepatitis B vaccine (1 of 3 - 3-dose series) [facility] Start: 1990 Hepatitis C screening HEPATITI S C VIRUS SCREENING [facility] Start: 1990 Tetanus vaccination TETANUS [facility] Payers Date Payer Category Payer Self-pay [id number] 2022 Unknown [employer] [id number] 2022-Present [address] [place] [address] [id number] 2017 Unknown [id number] 1990 Unknown [id number] 1990 Unknown [id number] [id number] 1990 Unknown [id number] [id number] 1990 Unknown [id number] [id number] 1990 Unknown [id number] [id number] 1990 Unknown [id number] [id number] 1990 Unknown [id number] [id number] 1990 Unknown [id number] [id number] 1990 Unknown [id number] [id number] 1990 Unknown [id number] [id number] 1990 Unknown [id number] [id number] 1990 Unknown [id number] [id number] 1959 Medicaid [id number] 1959 Unknown [id number] Unknown [id number] Social History Date Type Detail Facility Tobacco smoking status NHIS Unknown if ever smoked [facility] [employer] Other Start: 1990 Sex Assigned At Female F [facility] Start: 12-02-2019 Sex Assigned At N [facility] [employer] Other Start: 09-18-2017 End: 05-24-2022 Tobacco smoking status GAIS Never smoked tobacco [facility] Start: 09-18-2017 End: 05-24-2022 Tobacco use and exposure Smokeless tobacco non-user [facility] Start: 05-24-2022 Alcohol intake Ex-drinker (finding) [employer] [facility] Start: 1990 Sex Assigned At Not on file A [employer] Start: 05-22-2023 Alcohol intake 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 (finding) [facility] Start: 12-02-2019 History of Social function [facility] Clinical Notes 01-29-2021 to 05-22-2023 Discharge InstructionsAttachmentsDaksha Brown DO - 05/24/2022 10:00 AM ESTAddendum Note - Husam Gentile LPN - 05/24/2022 10:00 AM EST Note Date & Type Note Facility 05-22-2023 Hospital Discharge instructions Richy Wakefield APRN - CNP - 05/22/2023 11:05 AM EST Ice and elevate 4 times daily for 20 minutes [facility] OTC([facility]) with ice or alone 4 times daily Boot right foot for 7-10 days Begin ABC exercises 3 times daily on 05/25/23. OTC ibuprofen as needed. The following attachments cannot be sent through Care Everywhere.Foot Sprain (Montenegrin)RICE: General Info (Montenegrin)documented in this encounter [facility] 05-24-2022 History of Present illness Narrative Bariatric History and Physical Patient:Kirsty Jones :1990 Date: 05/24/2022 PRIMARY/REFERRING PHYSICIAN INFORMATION Veronica Sanchez HISTORY OF PRESENT ILLNESS CHIEF COMPLAINT: morbid obesity with significant comorbidities. Patient is being referred for pre operative consult for weight loss surgery HISTORY OF PRESENT ILLNESS: The patient is a very pleasant patient who has developed morbid obesity with significant comorbidities who has failed multiple dietary attempts at weight loss. Kirsty Jones is a 32 y.o. female who presents with complaints of obesity which is severely limiting her life style. She is interested in learning about possible surgical options to help her fight her obesity. She has tried diet and exercise programs previously. She is limited in his physical activity due to obesity. she has been obese for more than 5 years and states that their highest recorded weight is 223 lbs. Previous attempts at weight loss have included exercise routines, exercise videos, low fat/low calorie diets, commercial weight loss programs such as weight watchers.she complains of occasional reflux and denies dysphagia. Past Medical History: Diagnosis Date GERD (gastroesophageal reflux disease) Past Surgical History: Procedure Laterality Date TUBAL LIGATION 2018 Current Outpatient Medications Medication Sig Accutane 40 MG capsule Take 2 capsules by mouth daily. No Known Allergies Social History Socioeconomic History Marital status: Single Spouse name: Not on file Number of children: Not on file Years of education: Not on file Highest education level: Not on file Occupational History Not on file Tobacco Use Smoking status: Never Smokeless tobacco: Never Vaping Use Vaping Use: Never used Substance and Sexual Activity Alcohol use: Not Currently Drug use: Never Sexual activity: Not on file Other Topics Concern Not on file Social History Narrative Not on file Social Determinants of Health Financial Resource Strain: Not on file Food Insecurity: Not on file Transportation Needs: Not on file Physical Activity: Not on file Stress: Not on file Social Connections: Not on file Intimate Partner Violence: Not on file Housing Stability: Not on file History reviewed. No pertinent family history. No family status information on file. REVIEW OF SYSTEMS Review of Systems Constitutional: Negative for chills, diaphoresis and fatigue. HENT: Negative for congestion, facial swelling and hearing loss. Eyes: Negative for pain, redness and itching. Respiratory: Negative for apnea, cough, choking and chest tightness. Cardiovascular: Negative for chest pain, palpitations and leg swelling. Gastrointestinal: Negative for abdominal distention, abdominal pain, constipation, diarrhea, nausea and vomiting. Endocrine: Negative for cold intolerance, heat intolerance and polyphagia. Genitourinary: Negative for difficulty urinating, dysuria, enuresis and flank pain. Musculoskeletal: Negative for arthralgias, back pain, gait problem and joint swelling. Skin: Negative for color change, pallor and rash. Allergic/Immunologic: Negative for environmental allergies, food allergies and immunocompromised state. Neurological: Negative for dizziness, light-headedness, numbness and headaches. Hematological: Negative for adenopathy. Does not bruise/bleed easily. Psychiatric/Behavioral: Negative for agitation, behavioral problems and confusion. Social History Tobacco Use Smoking Status Never Smokeless Tobacco Never PHYSICAL EXAM General Appearance: Well appearing, alert, in no acute distress, well-hydrated, well nourished., morbidly obese. Eyes: conjunctivae and sclerae normal, pupils equal, round, reactive to light and accommodation and no scleral icterus. Ears/Nose/Mouth/Throat: External ears normal, canals clear, TM's normal, Nares normal. Septum midline. Mucosa normal. No drainage or sinus tenderness., Lips, mucosa, and tongue normal, teeth and gums normal, oropharynx normal. Neck: Supple, no adenopathy; thyroid symmetric, normal size, no bruits. Respiratory: Clear to auscultation bilaterally Cardiovascular: Regular rate and rhythm, distal pulses intact bilaterally. Abdomen: soft, non-tender, non-distended, obese, no hernias palpated Lymph Nodes: No cervical lymphadenopathy. Musculoskeletal: Spine range of motion normal. Muscular strength intact, No joint swelling, deformity, or tenderness. Skin: No lesions noted. Neurologic: mental status intact, cranial nerves 2-12 intact, sensation to light touch and pinprick normal. Psychiatric: A&O x 3; Judgement/lnsight appropriate Rectal: deferred exam. DIAGNOSIS/IMPRESSION Encounter Diagnoses Name Primary? Obesity (BMI 30-39.9) Yes Gastroesophageal reflux disease, unspecified whether esophagitis present Hypersomnolence with Body mass index is 35.99 kg/m2. Height: 5'6 Weight:223 lbs SURGICAL PLAN Consults: consult bariatric nutrition for 6 months of preoperative supervised diets, consult bariatric psychology, consult primary care physician for medical clearance, sleep study Diagnostic Tests: CBC, CMP, Lipid Panel, Liver Function Panel, Thyroid Function, B-12, Iron Levels, H Pylori, CXR, EGD, EKG Surgical Procedure: 2. Laparoscopic Sleeve gastrectomy. I have use an anatomical chart to show the postsurgical changes that occur. I discussed expected weight loss with this procedure and I talked about common early and late complications associated with his procedure. This list included but was not limited to leaks, strictures, bleeding, postoperative infection, hernias and small bowel obstructions. I discussed dumping syndrome in detail how dietary choices can worsen this problem. I discussed the need for vitamins and postoperative.. I have discussed postsurgical follow-up. I discussed the need for supervised medical weight loss prior to surgery as well as mental health examination evaluation. 3. Preoperative work-up as detailed above All risks and benefits were discussed with the patient including: Intra-operative and/or Immediate Post-operative Risks: : The mortality rate of the sleeve gastrectomy nationwide is 0.3% to 2%. Modality rate associated with the gastric bypass is slightly higher-0.5 to 3%. Significant Bleeding: Bleeding may occur unexpectedly in the operating room. Bleeding may also occur post-operatively in the days after the operation. This bleeding may be through the intestinal tract at the staple line and result in the passage of blood in the stool. Bleeding may also be unseen inside the abdomen and be diagnosed through other means. A transfusion may be necessary in some circumstances. Re-operation to stop bleeding may be necessary. If the spleen is injured during the surgery, it may need to be removed. Anastomotic Leak: A leak is when the stapled part of the stomach does not heal. Serious complications can result from a leak, including, but not limited to a prolonged hospital stay, more operations, a long period of nothing to eat, prolonged antibiotic requirements, organ failure and . The reported incidence of anastomotic leak nationwide ranges from 0.5% to 3%. Renal Failure: Transient kidney (renal) failure occurs rarely. Irreversible kidney failure has been reported in rare cases. Prolonged Ventilation: A prolonged stay on a ventilator (breathing machine) in the intensive care unit may occur if a patient has severe sleep apnea or after certain significant complications. A temporary tracheostomy may be necessary. Heart Attack: Although a heart attack is possible after a laparoscopic possible open sleeve gastrectomy, it is very rare. Risk factors for heart disease include increased age, diabetes, hypertension, hypercholesterolemia and a family history of heart disease. Prolonged Hospital Stay: Unforeseen complications may result in a prolonged hospital stay. Intensive care admission may be required. Bowel Obstruction (in undergoing the gastric bypass): An obstruction can occur that would require re-operation. An obstruction can occur from a number of causes, such as bleeding, scarring, technical problems or hernia. Deep Vein Thrombosis (DVT)/Pulmonary Embolism: Blood clots that form in the legs, and elsewhere, and break off into the lungs may cause . Given this risk, treatments may be initiated to decrease the risk for the formation of blood clots, including the use of heparin (a medication that thins the blood), special foot and leg stockings, walking soon after surgery and medication at home after discharge from the hospital. Completely eliminating the risks of DVT (clots) altogether is not possible. The risks associated with the medications used to prevent blood clots can include excessive bleeding. Any symptoms of leg swelling, chest pain or sudden shortness of breath should be immediately reported to the surgeon. Rarely, patients develop allergies to heparin, sometimes causing very severe reactions. Other Complications that may be common: Allergic reactions, headaches, itching, medication side-effects, heartburn/reflux, bruising, gout, anesthetic complications, injury to the bowel or vessels, gas bloating, minor wound drainage, wound opening, scar formation, stroke, urinary tract infection, urinary retention, pressure sores, injury to spleen or surrounding structures, and pneumonia. The patient was advised not to become within 12-18 months following bariatric surgery. She was educated on the increased risks to mother and fetus associated with within 2 years of bariatric surgery. The patient has also been instructed to refrain from smoking and using illicit drugs both before and after their surgery. I have discussed at length the risks of office visits and surgical procedures at the hospital during the COVID-19 pandemic. The risk of tony COVID-19 during the perioperative and postoperative care period was also explained to the patient. The patient verbalized full understanding and acceptance of these risks, as well as the quarantine time between testing and surgery. The patient fully understands that if their COVID-19 test is positive or symptoms develop prior to surgery, their surgery will be cancelled. The patient has expressed the desire to proceed with the proposed surgery and any hospital stay required. The patient also agrees to keep their post-operative appointment with myself and dietary to ensure success. I spent greater than 60 minutes in total reviewing the patient's chart, interviewing the patient, and documenting today's visit. Daksha Brown DO 05/24/2022 10:54 AM Bariatric Surgery documented in this encounter [facility] 05-24-2022 Miscellaneous Notes Addended by: HUSAM GENTILE on: 05/24/2022 01:57 PM Modules accepted: Orders, SmartSet documented in this encounter [facility] 05-24-2022 Note Addended by: HUSAM CALERO on: 05/24/2022 01:57 PM Modules accepted: Orders, SmartSet [facility] 05-24-2022 Note Addended by: HUSAM CALERO on: 05/24/2022 01:57 PM Modules accepted: Orders, SmartSet [facility] 08-13-2021 Note OPERATIVE NOTE OPERATION DATE: 08/13/2021 PROCEDURE: Iwona endometrial ablation. PREOPERATIVE DIAGNOSIS: Menorrhagia. POSTOPERATIVE DIAGNOSIS: Menorrhagia. ANESTHESIA: General. SURGEON: Lizzie Barnard D.O. ATOMIC PHYSICS TEACHER: None. BLOOD LOSS: 5 mL. URINE OUTPUT: Yellow and clear. SPECIMEN: None. FINDINGS: Both ostia seen. No gross evidence of polyps, fibroids, malignancy. PROCEDURE: The patient was taken back to the OR where she was prepped and draped in the normal sterile fashion after being placed in the dorsal lithotomy position, after being placed under general anesthesia without difficulty. A weighted speculum was placed into the vagina. The anterior lip was grasped with a single tooth tenaculum. The patient was then sounded to approximated 9 cm. The patient's cervix was gently dilated using Hegar dilators. The hysteroscope was passed through the cervix into the uterus where both ostia were seen. No gross evidence of polyps, fibroids or malignancy. The cervical length was noted to be 4.5 cm. The total cavity length is 4.5 cm. The Iwona ablation apparatus was set to approximately 4.5 cm in length. This was placed through the cervix and into the uterus. After the seal was tested, at that time the total ablation of 120 seconds was performed with the Iwona without difficulty. All instruments were removed from the vagina. Excellent hemostasis noted. Sponge and lap count correct times 2. Patient taken to recovery in stable condition. [facility] Signed and Approved by: DR LIZZIE BARNARD . 08/17/2021 10:09:00 [facility] 01-29-2021 Evaluation note Encounter Date Diagnosis Assessment Notes Jan, Abnormal weight gain (ICD-10 - R63.5) Jan, Mixed hyperlipidemia (ICD-10 - E78.2) Jan, Acanthosis nigricans (ICD-10 - L83) Jan, PCOS (polycystic ovarian syndrome) (ICD-10 - E28.2) Jan, Bipolar affective disorder (ICD-10 - F31.9) Jan, Migraine (ICD-10 - G43.909) [facility] Other Evaluation noteNo assessment information available [facility] Work Phone: Evaluation noteNo InformationN[facility] [employer] Other Evaluation note* Diagnosis Gastroesophageal reflux disease, unspecified whether esophagitis present- Primary Obesity (BMI 30-39.9) Obesity, unspecified Hypersomnolence Hypersomnia, unspecified [facility] Sprain of right foot, initial encounter- Primary documented in this encounter [facility] general Narrative - Reported* Type Description Date Medical History Migraines Medical History depression Medical History anxiety Medical History bipolar Medical History Panic attacks Surgical History tubal ligation 2019 Hospitalization History child Integrated biometrics Other Summary Purpose Family History No Family History Records FoundNo Family History Records FoundNo Family History Records FoundNo Family History Records FoundNo Family History Records FoundNo Family History Records FoundNo Family History Records Found Advance Directives No Advanced Directives Records FoundLatest Code Status on File Code Status Date Activated Date Inactivated Comments Full Code 06/07/2018 8:31 PM 06/08/2018 4:13 AM Reason for Referral Specialty Diagnoses / Procedures Referred By Contac t Referred To Contact Diagnoses Obesity (BMI 30-39.9) Gastroesophageal reflux disease, unspecified whether esophagitis present Hypersomnolence Procedures ECG Daksha Brown, DO [address] [place] [address] Referral ID Status Reason Start Date Expiration Date V isits Requested Visits Authorized [id number] New Request 05/24/2022 06/18/2023 1 1 Specialty Diagnoses / Procedures Referred By Contac t Referred To Contact Diagnoses Obesity (BMI 30-39.9) Gastroesophageal reflux disease, unspecified whether esophagitis present Hypersomnolence Procedures DIAGNOSTIC UPPER ENDOSCOPY MT ESOPHAGOGASTRODUODENOSCOPY TRANSORAL DIAGNOSTIC Daksha Brown, DO [address] [place] [address] Referral ID Status Reason Start Date Expiration Date V isits Requested Visits Authorized [id number] New Request 05/24/2022 06/18/2023 1 1 Specialty Diagnoses / Procedures Referred By Contac t Referred To Contact Nutrition and Dietetics Diagnoses Obesity (BMI 30-39.9) Gastroesophageal reflux disease, unspecified whether esophagitis present Hypersomnolence Daksha Brown, DO [address] [place] [address] Referral ID Status Reason Start Date Expiration Date V isits Requested Visits Authorized [id number] New Request 05/24/2022 06/18/2023 1 1 Specialty Diagnoses / Procedures Referred By Contac t Referred To Contact Psychology Diagnoses Obesity (BMI 30-39.9) Gastroesophageal reflux disease, unspecified whether esophagitis present Hypersomnolence Daksha Brown, DO [address] [place] [address] Mathew Buckley, PsyD [address] [place] [address] Referral ID Status Reason Start Date Expiration Date V isits Requested Visits Authorized [id number] New Request 05/24/2022 06/18/2023 1 1 Specialty Diagnoses / Procedures Referred By Contac t Referred To Contact Sleep Medicine Diagnoses Obesity (BMI 30-39.9) Gastroesophageal reflux disease, unspecified whether esophagitis present Hypersomnolence Daksha Brown, DO [address] [place] [address] Referral ID Status Reason Start Date Expiration Date V isits Requested Visits Authorized [id number] New Request 05/24/2022 06/18/2023 1 1 Additional Source Comments INFORMATION SOURCE (unrecogn ized section and content) DATE CREATED AUTHOR 09/19/2017 [facility] DATE CREATED AUTHOR AUTHOR'S ORGANIZ ATION 02/09/2021 [facility] DATE CREATED AUTHOR AUTHOR'S ORGANIZ ATION 08/19/2021 [facility] DATE CREATED AUTHOR AUTHOR'S ORGANIZ ATION 07/05/2022 [facility] DATE CREATED AUTHOR AUTHOR'S ORGANIZ ATION 05/24/2023 [facility] DATE CREATED AUTHOR AUTHOR'S ORGANIZ ATION 08/15/2023 [facility] EPIC DATE CREATED AUTHOR AUTHOR'S ORGANIZ ATION 08/17/2023 [facility] Goals (unrecognized section and content) Goals may be documented in a n alternate sectionNo InformationNo InformationGoals may be documented in an alternate section REASON FOR VISIT (unrecogniz ed section and content) Reason Comments New Patient Bariatric Consult wi [employer] Insurance Reason Comments Foot Pain Right foot pain, ons et after rolling ankle at work Care Teams (unrecognized sec tion and content) Figure Clerk Relationship Specialty Start Date End Date Veronica Sanchez, DEAN PCP - General 05/24/22 Figure Clerk Relationship Specialty Start Date End Date Yannick Lynch DO [address] [place] [address] (work) PCP - General 02/27/15 FOR RECORDS PERTAINING TO PATIENTS WHO ARE OR HAVE BEEN ENROLLED IN A CHEMICAL DEPENDENCY/SUBSTANCEABUSE PROGRAM, SOME INFORMATION MAY BE OMITTED. This clinical summary was aggregated from multiple sources. Caution should be exercised in using it in the provision of clinical care. This summary normalizes information from multiple sources, and as a consequence, information in this document may materially change the coding, format and clinical context of patient data. In addition, data may be omitted in some cases. CLINICAL DECISIONS SHOULD BE BASED ON THE PRIMARY CLINICAL RECORDS. [facility]. provides no warranty or guarantee of the accuracy or completeness of information in this document.
== END 2023-08-25 07:12 | disposition home or self-care (01) ==
LOC: US 07:11
PROVIDERS: PCP Obstetrics & Gynecology; Visit Provider Obstetrics & Gynecology
DX: N92.0 Excessive and frequent menstruation with regular cycle (principal); R10.2 Pelvic and perineal pain
CPT/HCPCS: 76830; 76856

== ENCOUNTER 2023-09-04 08:01 | Outpatient (OUT) | payer OTHER, SELFPAY ==
--- OUTSIDE RECORDS SUMMARY | 2023-09-04 08:06 | XMS_ITS | CCD ---
Author Organization [facility] Care Team Providers Care Cable Television Program Director Name Role Phone YANNICK LYNCH Unavailable Unavailable [...] Primary Care Unavailable Naeem Huitron Jr. Unavailable [phone] Naeem Huitron Unavailable Kelly MORAN, Veronica Primary Care Provider Unavaila DAKSHA Jiménez Attending Unavailable VERONICA SANCHEZ Primary Care Unavailable DAKSHA BROWN Referring Unavailable DAKSHA BROWN Attending Unavailable VERONICA SANCHEZ Primary Care Unavailable DAKSHA BROWN Referring Unavailable DAKSHA BROWN Attending Unavailable SELF, SELF Referring Unavailable VERONICA SANCHEZ Primary Care Unavailable Yannick Lynch DO Primary Care Provider [phone] YANNICK LYNCH Primary Care Unavailable LIZZIE BARNARD [...] Test Name Value Interpretation Reference Range Facility [facility] 08-14-2023 L Specimen: [id number] Received: 08/16/23 Status: ELI Seymour Num: [id number] Spec Type: Surgical Subm Dr: Lizzie Barnard Tissues: A Endometrium - Biopsy (ENDO BX) Procedures: HE/2, Gross/Micro L4 Age/ Patient Sex Location Account Attending Physician Kirsty Jones 33/F LABELL [id number] Lizzie Barnard SPEC NUM: [id number] RECD: 08/16/23 STATUS: ELI SEYMOUR NUM: [id number] NARCISO: 08/14/[address]: Lizzie Barnard ENTERED: 08/16/[address] [facility] [address]: Carlito Orta SPEC TYPE: Surgical DEPT: [...] female, menorrhagia with irregular cycle CPT Codes 77795 Specimen: [id number] Received: 08/16/23 Status: SERAFINPavel Seymour Num: [id number] Spec Type: Surgical Subm Dr: Lizzie Barnard Tissues: A Endometrium - Biopsy (ENDO BX) Procedures: HE/2, Gross/Micro L4 Patient: Niranjan,Taylor [id number] (Continued) Signed (signature on file) Rea Callejas MD 08/17/23 1412 Normal [facility] XR FOOT RIGHT (MIN 3 [...] Jeremy Villalta MD 05/22/23 Final result Normal [facility] XR Foot - right 3 Viewson 1. Mild plantar calcaneal spur. 2. Mild soft tissue swelling of the dorsal midfoot and anterior ankle. 3. No acute fracture or dislocation. [facility] RIS CONSOLIDATED EXAMINATION: THREE XRAY VIEWS [...] at the dorsal midfoot and anterior ankle. [facility] Jeremy Tse MD - 05/22/2023 EXAMINATION: [...] ankle. 3. No acute fracture or dislocation. [facility] Radiology Study observation (narrative) [facility] XR Foot - right 3 ViewsOrder ed By: Jeremy Villalta on 05-22-2023 [facility] Work Phone: CBC AUTO DIFFon 08-13-2021 BASO # 0.0 103/ul Normal 0.0-0.1 [facility] Comment on above: Performed By: #### C BC #### [facility] [address] [address] [address] Estella Vicente Basophils/100 WBC (Bld) 0.5 % Normal 0.2-2.0 [facility] Comment on above: Performed By: #### C BC #### [facility] [address] [place] [address] Dr. Estella Vicente EO # 0.1 103/ul Normal 0.0-0.7 [facility] Comment on above: Performed By: #### C BC #### [facility] [address] [place] [address] Dr. Estella Vicente Eosinophils/100 WBC (Bld) 1.2 % Normal 0.9-7.0 [facility] Comment on above: Performed By: #### C BC #### [facility] [address] [place] [address] Dr. Estella Vicente Erythrocyte distribution width (RBC) [Ratio] 13.1 % Normal 11.0-15.0 [facility] Comment on above: Performed By: #### C BC #### [facility] [address] [place] [address] Dr. Estella Vicente Hematocrit (Bld) [Volume fraction] 39.5 % Normal 36.0-48.0 [facility] Comment on above: Performed By: #### C BC #### [facility] [address] [place] [address] Dr. Estella Vicente Hemoglobin (Bld) [Mass/Vol] 13.2 g/dL Normal 12.0-16.0 [facility] Comment on above: Performed By: #### C BC #### [facility] [address] [place] [address] Dr. Estella Vicente IG # 0.01 10e3/ul Normal 0.00-0.03 [facility] Comment on above: Performed By: #### C BC #### [facility] [address] [place] [address] Dr. Estella Vicente IG % 0.1 % Normal 0.0-0.5 [facility] Comment on above: Performed By: #### C BC #### [facility] [address] [place] [address] Dr. Estella Vicente LYMPH # 1.7 103/ul Normal 1.2-3.8 [facility] Comment on above: Performed By: #### C BC #### [facility] [address] [place] [address] Dr. Estella Vicente Lymphocytes/100 WBC (Bld) 23.6 % Normal 20.5-60.0 [facility] Comment on above: Performed By: #### C BC #### [facility] [address] [place] [address] Dr. Estella Vicente MANUAL DIFF REQ NO Normal [facility] Comment on above: Performed By: #### C BC #### [facility] [address] [place] [address] Dr. Estella Vicente MCH (RBC) [Entitic mass] 29.1 pg Normal 26.7-34.0 [facility] Comment on above: Performed By: #### C BC #### [facility] [address] [place] [address] Dr. Estella Vicente MCHC (RBC) [Mass/Vol] 33.4 g/dL Normal 29.9-35.2 [facility] Comment on above: Performed By: #### C BC #### [facility] [address] [place] [address] Dr. Estella Vicente MCV (RBC) [Entitic vol] 87.2 fL Normal 81.0-99.0 [facility] Comment on above: Performed By: #### C BC #### [facility] [address] [place] [address] Dr. Estella Vicente MONO # 0.6 103/ul Normal 0.3-0.8 [facility] Comment on above: Performed By: #### C BC #### [facility] [address] [place] [address] Dr. Estella Vicente Monocytes/100 WBC (Bld) 7.5 % Normal 1.7-12.0 [facility] Comment on above: Performed By: #### C BC #### [facility] [address] [place] [address] Dr. Estella Vicente NEUT # 4.9 103/ul Normal 1.4-6.5 [facility] Comment on above: Performed By: #### C BC #### [facility] [address] [place] [address] Dr. Estella Vicente Neutrophils/100 WBC (Bld) 67.1 % Normal 43.0-75.0 [facility] Comment on above: Performed By: #### C BC #### [facility] [address] [place] [address] Dr. Estella Vicente Platelet mean volume (Bld) [Entitic vol] 11.9 fL Normal 9.5-13.5 [facility] Comment on above: Performed By: #### C BC #### [facility] [address] [place] [address] Dr. Estella Vicente PLT 252 103/ul Normal 150-450 [facility] Comment on above: Performed By: #### C BC #### [facility] [address] [place] [address] Dr. Estella Vicente RBC 4.53 106/ul Normal 4.20-5.40 [facility] Comment on above: Performed By: #### C BC #### [facility] [address] [place] [address] Dr. Estella Vicente WBC 7.3 103/ul Normal 4.0-11.0 [facility] Comment on above: Performed By: #### C BC #### [facility] [address] [place] [address] Dr. Estella Vicente Covid-19 PCR ([facility])on 08-01 SARS-CoV-2 (COVID-19) RNA CRIS+probe Ql (Unsp spec) Not detected Normal NOT DETECTED [facility] Comment on above: Result Comment: When diagnostic [...] for this test is supported by the Chief Wheelage Clerk of Health and Human Service's declaration that [...] used). Performed By: #### C VDTBH #### [facility] [address] [address] [address] Estella Vicente PREG QUANT HCGon 08-13-2021 HCG QUANT 1 mIU/mL Normal [facility] Comment on above: Performed By: #### P REGQNT #### [facility] [address] [place] [address] Dr. Estella Vicente HCG RANGE SEE BELOW Normal [facility] Comment on above: Result Comment: 5-50 0-1 WEEK 40-300 1-2 WEEKS 100-1,000 2-3 WEEKS 500-6,000 3-4 WEEKS 5,000-200,000 1-2 MONTHS 10,000-100,000 2-3 MONTHS 3,000-50,000 2ND TRIMESTER 1,000-50,000 3RD TRIMESTER Performed By: #### P REGQNT #### [facility] [address] [place] [address] Dr. Estella Vicente CBC AUTO DIFFon 07-30-2021 BASO # 0.0 103/ul Normal 0.0-0.1 [facility] Comment on above: Performed By: #### C BC ####[facility] [address] [address]Dr. Estella Vicente Basophils/100 WBC (Bld) 0.4 % Normal 0.2-2.0 [facility] Comment on above: Performed By: #### C BC ####[facility] [address] [address]DrSaji Vicente EO # 0.1 103/ul Normal 0.0-0.7 [facility] Comment on above: Performed By: #### C BC ####[facility] [address] [address]Dr. Estella Vicente Eosinophils/100 WBC (Bld) 1.1 % Normal 0.9-7.0 [facility] Comment on above: Performed By: #### C BC ####[facility] [address] [address]Dr. Estella Vicente Erythrocyte distribution width (RBC) [Ratio] 12.9 % Normal 11.0-15.0 [facility] Comment on above: Performed By: #### C BC ####[facility] [address] [place], [place] [address]Dr. Estella Vicente Hematocrit (Bld) [Volume fraction] 41.3 % Normal 36.0-48.0 [facility] Comment on above: Performed By: #### C BC ####[facility] [address] [place], [place] [address]Dr. Estella Vicente Hemoglobin (Bld) [Mass/Vol] 13.6 g/dL Normal 12.0-16.0 [facility] Comment on above: Performed By: #### C BC ####[facility] [address] [place], [place] [address]Dr. Estella Vicente IG # 0.01 10e3/ul Normal 0.00-0.03 [facility] Comment on above: Performed By: #### C BC ####[facility] [address] [place], [place] [address]Dr. Estella Vicente IG % 0.1 % Normal 0.0-0.5 [facility] Comment on above: Performed By: #### C BC ####[facility] [address] [place], [place] [address]Dr. Estella Vicente LYMPH # 1.7 103/ul Normal 1.2-3.8 [facility] Comment on above: Performed By: #### C BC ####[facility] [address] [place], [place] [address]Dr. Estella Vicente Lymphocytes/100 WBC (Bld) 24.2 % Normal 20.5-60.0 [facility] Comment on above: Performed By: #### C BC ####[facility] [address] [place], [place] [address]Dr. Estella Vicente MANUAL DIFF REQ NO Normal [facility] Comment on above: Performed By: #### C BC ####[facility] [address] [id number]. Estella Vicente MCH (RBC) [Entitic mass] 28.8 pg Normal 26.7-34.0 [facility] Comment on above: Performed By: #### C BC ####[facility] [address] [id number]. Estella Vicente MCHC (RBC) [Mass/Vol] 32.9 g/dL Normal 29.9-35.2 [facility] Comment on above: Performed By: #### C BC ####[facility] [address] [place], [place] [address]Dr. Estella Vicente MCV (RBC) [Entitic vol] 87.5 fL Normal 81.0-99.0 [facility] Comment on above: Performed By: #### C BC ####[facility] [address] [place], [place] [address]Dr. Estella Vicente MONO # 0.6 103/ul Normal 0.3-0.8 [facility] Comment on above: Performed By: #### C BC ####[facility] [address] [place], [place] [address]Dr. Estella Jules Monocytes/100 WBC (Bld) 7.9 % Normal 1.7-12.0 [facility] Comment on above: Performed By: #### C BC ####[facility] [address] [place], [place] [address]Dr. Estella Vicente NEUT # 4.7 103/ul Normal 1.4-6.5 [facility] Comment on above: Performed By: #### C BC ####[facility] [address] [place], [place] [address]Dr. Estella Vicente Neutrophils/100 WBC (Bld) 66.3 % Normal 43.0-75.0 [facility] Comment on above: Performed By: #### C BC ####[facility] [address] [place], [place] [address]Dr. Estella Vicente Platelet mean volume (Bld) [Entitic vol] 11.4 fL Normal 9.5-13.5 [facility] Comment on above: Performed By: #### C BC ####[facility] [address] [place], [place] [address]Io. Estella Vicente PLT 292 103/ul Normal 150-450 [facility] Comment on above: Performed By: #### C BC ####[facility] [address] [place], [place] [address]Ki. Estella Vicente RBC 4.72 106/ul Normal 4.20-5.40 [facility] Comment on above: Performed By: #### C BC ####[facility] [address] [place], [place] [address]Uo. Estella Vicente WBC 7.1 103/ul Normal 4.0-11.0 [facility] Comment on above: Performed By: #### C BC ####[facility] [address] [place], [place] [address]FrSaji Vicente SGOTon 07-30-2021 AST [Catalytic activity/Vol] 11 U/L Critically low 15-37 [facility] Comment on above: Performed By: #### T RIG, AST, ALT #### [facility] [address] [address] [address] Estella Vicente SGPTon 07-30-2021 ALT [Catalytic activity/Vol] 20 U/L Normal 14-59 [facility] Comment on above: Performed By: #### T RIG, AST, ALT #### [facility] [address] [address] [address] Estella Vicente TRIGLYCERIDEon 07-30-2021 Triglyceride [Mass/Vol] 68 mg/dL Normal <=150 [facility] Comment on above: Performed By: #### T RIG, AST, ALT #### [facility] [address] [address] [address] Estella Vicente US PELVIS AND TRANSVAGon [...] by: MAHSA MILES Date: 2021-07-20 11:05 Normal [facility] PAP ACOG PANEL 2: 30 to 65on 07-12-2021 . . Normal [facility] Comment on above: Result Comment: Perf ormed at: WB Performed By: #### 4 [id number] ####[facility] [address] [address]DrSaji Vicente Age Gdln ACOG Testing 30-65 Normal [facility] Comment on above: Performed By: #### 4 [id number] ####[facility] [address] [address]Dr. Estella Vicente DIAGNOSIS: Comment Normal [facility] Comment on above: Result Comment: NEGA TIVE FOR INTRAEPITHELIAL LESION OR MALIGNANCY. Performed at: WB Performed By: #### 4 [id number] ####[facility] [address] [address]DrSaji Vicente HPV Aptima Negative Normal Negative [facility] Comment on above: Result Comment: This nucleic acid amplification test detects fourteen high-risk HPV types (16,18,31,33,35,39,45,51,52,56,58,59,66,68) without differentiation. Performed at: =G Performed By: #### 4 [id number] ####[facility] [address] [address]DrSaji Vicente Methodology: Comment Normal [facility] Comment on above: Result Comment: This liquid based ThinPrep(R) pap test was screened with the use of an image guided system. Performed at: WB Performed By: #### 4 [id number] ####[facility] [address] [address]Dr. Estella Vicente Note: Comment Normal [facility] Comment on above: Result Comment: The Pap smear is a screening test designed to aid in the detection of premalignant and malignant conditions of the uterine cervix. It is not a diagnostic procedure and should not be used as the sole means of detecting cervical cancer. Both false-positive and false-negative reports do occur. . Performed at: WB Performed By: #### 4 [id number] ####[facility] [address] [address]Dr. Estella Vicente Performed by: Comment Normal [facility] Comment on above: Result Comment: Elena Storm Master Cosmetologist (ASCP) Performed at: WB Performed By: #### 4 [id number] ####[facility] [address] [place], [place] [address]Dr. Estella Vicente Specimen adequacy: Comment Normal [facility] Comment on above: Result Comment: Sati sfactory for evaluation. Endocervical and/or squamous metaplastic cells (endocervical component) are present. Performed at: WB Performed By: #### 4 [id number] ####[facility] [address] [place], [place] [address]DrSaji Vicente VAGINITIS/VAGINOSIS DNA PROB Kole 07-12-2021 Dorothy species Positive Abnormal Negative [facility] Comment on above: Performed By: #### V AGINT #### [facility] [address] [place] [address] Dr. Estella Vicente Gardnerella vaginalis Negative Normal Negative [facility] Comment on above: Performed By: #### V AGINT #### [facility] [address] [address] [address] Estella Vicente Trichomonas vaginalis Negative Normal Negative [facility] Comment on above: Performed By: #### V AGINT #### [facility] [address] [place] [address] Dr. Estella Vicente PAP ACOG PANEL 2: 30 to 65on 07-04-2021 . . Normal [facility] Comment on above: Result Comment: Perf ormed at: WB Performed By: #### 4 [id number] ####[facility] [address] [id number] Vicente Age Gdln ACOG Testing 30-65 Normal [facility] Comment on above: Performed By: #### 4 [id number] ####[facility] [address] [id number] Vicente DIAGNOSIS: Comment Normal [facility] Comment on above: Result Comment: NEGA TIVE FOR INTRAEPITHELIAL LESION OR MALIGNANCY. Performed at: WB Performed By: #### 4 [id number] ####[facility] [address] [address]DrSaji Vicente HPV Aptima Negative Normal Negative [facility] Comment on above: Result Comment: This nucleic acid amplification test detects fourteen high-risk HPV types (16,18,31,33,35,39,45,51,52,56,58,59,66,68) without differentiation. Performed at: =G Performed By: #### 4 [id number] ####[facility] [address] [id number]. Estella Vicente Methodology: Comment Normal [facility] Comment on above: Result Comment: This liquid based ThinPrep(R) pap test was screened with the use of an image guided system. Performed at: WB Performed By: #### 4 [id number] ####[facility] [address] [address]DrSaji Vicente Note: Comment Normal [facility] Comment on above: Result Comment: The Pap smear is a screening test designed to aid in the detection of premalignant and malignant conditions of the uterine cervix. It is not a diagnostic procedure and should not be used as the sole means of detecting cervical cancer. Both false-positive and false-negative reports do occur. . Performed at: WB Performed By: #### 4 [id number] ####[facility] [address] [id number] Vicente Performed by: Comment Normal [facility] Comment on above: Result Comment: Elena Storm Master Cosmetologist (ASCP) Performed at: WB Performed By: #### 4 [id number] ####[facility] [address] [address]Dr. Estella Vicente Specimen adequacy: Comment Normal [facility] Comment on above: Result Comment: Sati sfactory for evaluation. Endocervical and/or squamous metaplastic cells (endocervical component) are present. Performed at: WB Performed By: #### 4 [id number] ####[facility] [address] [address]Dr. Estella Vicente VAGINITIS/VAGINOSIS DNA PROB Kole 06-30-2021 Dorothy species Positive Abnormal Negative [facility] Comment on above: Performed By: #### V AGINT #### [facility] [address] [address] [address] Estella Vicente Gardnerella vaginalis Negative Normal Negative [facility] Comment on above: Performed By: #### V AGINT #### [facility] [address] [address] [address] Estella Vicente Trichomonas vaginalis Negative Normal Negative [facility] Comment on above: Performed By: #### V AGINT #### [facility] [address] [address] [address] Estella Vicente Coding Summary.on 11-16-2020 Coding Summary. CD:[id number] Gh0bWw+PGhlYWQ+PE1FV DBrM11lpAEkoH3SC9sCV W9UCOXFQZIMOP3VSX4yv HU1YYxzZ4FlgmYf HrdynWQyBA00KAz0JGO1 qPriBYrzoV0yvSFhT4v7 AiGzQX52vH44AFcrZZTg UbP8TqFwvlyzyIXa K1rpVlAzkSKjZhy+PHRh YmxlIHdpZHRoPScxMDAl YvFwdHtwVI2yFd6qGSEw LWNvbGxhcHNlOiBj l4ggMMYcFCmjUO9ifAtc S1SljGZ7XFIyt4l8Bx32 dHI+FOAkPNO3nWdlRDss v785UdLjb0nxVHX6 gEZqRNqwZJM0P65qu6E5 RRYqJEGwNHP9kKN2gM7u yGjzdqllG9PjpIOzKcC9 GJY9sKYgiQ6ozCzi dpixbK7dBgl+A58ZSU2N DFFLKK5RVbg1H1QoTltf dHI+UM12AFKzKF85cWPz rNSee7khaFx1PjMy DTGbUJO8iOkjUJphu0Df GVVqM29xuEOxj4Z8BRVa kUsmvJFgAoImiJO7sB1t YQduggzoh4kbhtpl Rhfzz4nglk34fN36G97m OFdeVPJcQQZ0HVRwKSNj bDowtf4heN6wNj5+IDxj x4ixz8gpwVc2EgPa HUZbkuSvnHjtSSO4a3As Og96D8HrlDzyz6TfAke4 md16rRHrw0J1wEI1RLzk HSUuqV5fYXzuVoZ2 JKLfWeUliM10xBIiAGzg Vm0ylCghjJrgKM3kRDGy fvpoABYegT9aHBDugYNh aRhyIE4pJCAdepvt u344YuTsFGH3JSBpxOHs G9CcbK1pAyDmRQPjCSKb L9ZpxAElGKgsN687CXui OtA4JBOwiqMzA2Dq PBZqrKcpAxA7n0H7Pm9C i8BenwdqYMR9QHzjESB7 WtC8GdGgUnT7X2BgWpw1 YMClpStzPS9jW7Ou BQZdjknhxmzdiVH7DZXi NARirO61mOFyLKpvSe6q a1Y0q127GUEuUIRzdK06 Vk6wnLiaTKYdgVRG cC5aseqxn2hligvrLfLl LWYiPHf5AGs4HQJigPjc LoKdPJK8HeY1DEZ9tQFb eU0mdWeufjcxnG0w Oyc+W70loR1cVOO4LVY6 mqumCHYmnfRxDV46TW61 P4PyFqddjHRxkCR+PGRp jvTujVkvKU9bOtGd x9bpc2TtLKscT0FzUNEa VSbrRlf4TSGfNFM5oYV1 rY1pKOPzDXyol9K8wVR8 K3QuzyFjlx8jd8ja YDSxMQavM85gjWPqa3C0 ABCgtVD3MNOvqLizOqBr aD24Uyg+RRTzhOtyu0Ln Knzvj4rvt7giqNa1 IjMwJSIgdmFsaWduPSJ0 c3VrPy03B01nZPsqNXEp QNGtHUAtZTHngFglmq1j eU6iUa0+PGNvbCB3 mVP2eC5rVFVdElE8ULfz H484HoQkoZVpDugeo0xi o0qvySi7SkOkOOKxvqAr rHjbIXB4p2BmUo59 Z93gAPkrWYJmNKKpLARy BXSezDhfoq6sfS9iIx0+ AC5fw4bavz03cE77wQO+ GIYjHCK1hCpgZTyz KCFqmY3eFPosSlL0IEDz HqCwjW45qZGpIZcnLh4j fGhmcIxyUE4wACLtagbi b208EnGjx1arUAXf qPXzRNmsCOF8C83hm9I1 KAIgAQDlCAA0eZA7fY0v bGlnbjogbGVmdDsgdmVy jUdkDKpxTPxyT879 IHRvcDsnPlBhdGllbnQg VdUiPBu7U0RcTfz0FQMv eBhsFY8blGFdMNmaFz3q nToegPvyRA5uRFRj bmoze244LoOzf3bnSYIc uZZuJKplCWX5X43ku3I6 FYDgCOFcEHZ3nPU6fA7f bGlnbjogbGVmdDsg ypVnrHauWXisVFyoK423 IHRvcDsnPkJpcnRoIERh pXI1TL71IX80nOMhq2X4 pAU5G3PtUVAqqwjf rdnenWY6DUSwWANsmR86 Rh1teJbiEv3zDFZzOVA1 XTKwwGSaY8UqnX3kKxOw MFMlGRTjL0UamKHq ZWmtG110NOoeByN0RPDa sjYyJ0FcDXPyqMkxWsR5 x4X0Kl5QV2I5EK50NJ00 mPRpr1U3vXD9E9Sd REHqskhsjspvrLL7QPCr TTKhlJ26Vm2mfCycWc3i YOSdUTW3CCHpeGZrB5Ao fW8jQpRwCFWaSJGa H9XcqJBrXAhgO673OQva PuJ6MWUvoxRlM0EnPFKr vXcyNhQ4b6Q2Bx8LNCm2 UE06FD44tKXkw6H2 jDY7X0EhKFDycxfqtfxv hUN3VPRzYQVllS78Di3i jBqzCw5hRTImZGC3TEYy sHDkW7TsvX7wGqJt FMRjLGXfL4NgsBQlHCfj D267NSqjSyP1PFJtgxQh X1GhKFYpgGrqWcO1z5X5 Xl0LTHHnBD31DTN0 gYD6TF11YT41V7WrCjze dGFibGU+PHRhYmxlIHdp ZHRoPScxMDAlJyBzdHls WJ9aEd3eSEMmPCTj wNddnEBmLbDvo5ldQDIh BMrcLG6wrFnuG5IduGV2 ACTkf0u5Sk73D02oH6Xs dXA+IFGewUZ2bLK1 yB3xEuYoMuW8ZAwcT087 EnVidMVbYbrqf2qls1cp qXs1BfY9DEKdleFoqYwv KYE1n0MnCk82S68l IHdpZHRoPSIxNSUiIHZh iHaqto0njM5eQt8+PGNv mQI3uPT6pW5eCeLuOfZ9 AHheN427HmGnfEDr Uwvql5sef7mgdIh1EgFp XDMavlPdqKvsRBH0f1Px Fu92M6RcnBmlq0WbWtc7 jv31lACau8L3cIW6 I8MiFBTzhrkzhCEhaKrw CN2aPUWzbdzeRAUvrJ1p YYTqK2o1HgDyDrL3LEkn P7UutnW0VKYrpDDh FXquMAH1R21ik5Q6HQLk GAXxGYH1bKG7tH5tuTro bjogbGVmdDsgdmVydGlj ACjcMCtlB519PECx vAekDBChzI9vADWltJTj jDkmDD3sBOMrshjnVg0D N6vAVMJQGKkfIRAEPM9S WK23P6CzVur3GTQu sRieWR6isMQgKFezLt0e gUjaiNfeVI9zAWPsujij RILmhN9zGQCxiWAwdHwb IW0oQBSzzozlk906 SbXtNJL2CXSzzUPtG1Ca bW9vNaMxOEWmTPRiE9Qq iMNeQXelZ422HGvwKcK8 SGModrTcF8LiLWUd qYpsUqI9m2Z6Hz7oDb6e Oo8dDXviAX69JY91jVCi m3N7rJM7L7OpJAYgvitx izndsAM3CZNbZHUq gR66gEXwBHxxJo1fp1N3 y805KSJqZOUcdS01Xb2u yHgeYQFaeFAYvQ9ypgkz a1wckredZeJfQBFw QNn4QQc5PNOziPdlEfSb CUS4JoE9RBL3dBEttS9z rOvntadhgS3iBsl+MzAg LUAshpA3V2JqJjk8 VYGfcDjmZO5rrADmEIzm Sc7xlIvcgDqvNL1fZZVt obgoGZSqzU1rHXRohQLc nYxaVX9lHYFapvsb m023WsJuFFW3TRGkhDBp J1RrmF4sUiDcCILsMEZj O2FeiIRdKCabG128YMzh UgK6XGSfnkZlL4Wg XJHxtNmyPyH0u8F5Kz9X SN0ulDU3K2TwSdq5AHMm bBcvVR8zvLZoSPshJv4p eIbilYcaDJ2hHAAd siflFNPuqN3lKATduIJn aSplXJ6qYZTmoyxmb659 FiUpHMS6RVNdbYLqK1Xa cG4hEfMwLLTsXSEy P8PneJSyJSlmC489BFdu TgQ4WRJowhGsW7KbTRRy jUwbFxO2x8Z1Ju4AHHJh GLPvjDRlVoM9X2If PjwvdHI+IN68WTJfAC70 sAQonEEzi5cgsOd5LlRf AEAiSTC7iUulHJaqc4Vd CZPeV62ydBCep3W3 IGNvbGxhcHNlOyBlbXB0 lR8hZUfvzoymf0xrkmzj Wzrzm4yhad03pW58L65t IHdpZHRoPSIzMCUi QEFnlCbmwb4jzH8bMw1+ YIQepPS4sBS2aB4zXzGj FpO1IZjqK629EhUmjUQb Gsdqi0vyv3pwsRc0 IjIwJSIgdmFsaWduPSJ0 z9VsQp43U44uKNfcBPUb OIQuSILcIPPafYiimv3t pB4qJa3+UA5be8ts yt65hT50tZL+PHRkIHN0 sUsnAJukNJGzuF4bINwn BrI9NRMdXqHrwC95gJRw LPxkFn5gyXgkiSpt UX9cQJClwmzce476LlOz f9ejKCMneYNjKOnqMAH2 F48sq6N0LCIzTYGuDND3 qQP9pQ2jxVndtnib bGVmdDsgdmVydGljYWwt DTczA840FCMnsLalOqUv yFJtY4wmuvGCRS7sPfkp dGQ+PVYhKIW1nHqf BEcfKCFqjT5jCPQjV9d5 FgMdNuC6PBlhO3TovhY9 LFTzwQRoIMNxzGQBlR1o bdtvo9winvxuZtWo ZACiOOt0WUo1LMFjlQpv NhNhTWR2WyE0WET7nTAc kM0lcJtcfqkqiZ3lEae+ RklOOjwvdGQ+PHRk QOR0hXjbPUurEUQuyK4f VNVuK3h8TaAdRxI5FElu E4YpyxR0AOHzfOTeKXZd rDKXsW3lalavj4cm lkweNiQnILTvYRa7SVa6 EGZodAfpTzVsGHE0NrH6 NKF1xNDxvF9tmJgxujde jP7iAto+TVJOOjwv dGQ+WATuITN6cYhdZNzj YRIuyC9pONLsS8c2UcDh GkV5LNuoM1KchaE0NVOp hEMzVLOpjUNUcS8w noltg2jylbnjHnReZKQy WQh7OHz5BARrgVuqMlWr PVN9JvG8CFO0xTZfxK2t bLxxoynhvR1bYuq+ ALQ9KKI1MJ46UG80O4Bu PjwvdGFibGU+PHRhYmxl IHdpZHRoPScxMDAlJyBz aMpyBY9sRz2fSYZz LWNv (more content not included)... Normal [facility] Ambulatory Clinical Summaryo n 11-12-2020 Ambulatory Clinical Summary {[id number] Normal [facility] Auto Diffon 11-12-2020 Basophils/100 WBC (Bld) 0.6 % Normal 0.0-2.0 [facility] Comment on above: Order Comment: Order Added by Discern Expert. Performed By: #### 1 [id number], 57306882, 4031594, 9999933, 9571509, 8707988 #### [facility] [address] [place] [address] 70460 Basophils/Leukocytes Auto (Bld) [Pure # fraction] 0.0 E9/L Normal 0.0-0.2 [facility] Comment on above: Order Comment: Order Added by Discern Expert. Performed By: #### 1 9284860, 02068914, 7171684, 5508318, 7994282, 3238342 #### [facility] [address] [place] [address] 97266 Eosinophils/100 WBC (Bld) 1.0 % Normal 0.0-8.0 [facility] Comment on above: Order Comment: Order Added by Discern Expert. Performed By: #### 1 2143894, 03505019, 4280762, 4714687, 4318296, 7167314 #### [facility] [address] [place] [address] 49339 Eosinophils/Leukocyt es Auto (Bld) [Pure # fraction] 0.1 E9/L Normal 0.0-0.5 [facility] Comment on above: Order Comment: Order Added by Discern Expert. Performed By: #### 1 1762362, 71785259, 0842523, 6357076, 8062224, 7097124 #### [facility] [address] [place] [address] 19231 Lymphocytes/100 WBC (Bld) 21.6 % Normal 14.0-50.0 [facility] Comment on above: Order Comment: Order Added by Discern Expert. Performed By: #### 1 3171624, 17298128, 5667901, 8089566, 8559681, 9176893 #### [facility] [address] [place] [address] 50068 Lymphocytes/Leukocyt es Auto (Bld) [Pure # fraction] 1.7 E9/L Normal 1.0-4.0 [facility] Comment on above: Order Comment: Order Added by Discern Expert. Performed By: #### 1 7529543, 27354962, 6577733, 3017195, 9811902, 3131598 #### [facility] [address] [place] [address] 26896 Monocytes/100 WBC (Bld) 7.4 % Normal 4.0-14.0 [facility] Comment on above: Order Comment: Order Added by Discern Expert. Performed By: #### 1 3859570, 28030425, 6777142, 6648950, 6358552, 5263887 #### [facility] [address] [place] [address] 12781 Monocytes/Leukocytes Auto (Bld) [Pure # fraction] 0.6 E9/L Normal 0.2-1.0 [facility] Comment on above: Order Comment: Order Added by Discern Expert. Performed By: #### 1 8522929, 75266391, 2084045, 1880696, 1957822, 6196018 #### [facility] [address] [place] [address] 80671 Neutrophils/100 WBC (Bld) 69.4 % Normal 36.0-75.0 [facility] Comment on above: Order Comment: Order Added by Discern Expert. Performed By: #### 1 5652030, 05289206, 0251609, 7472927, 9370559, 5567085 #### [facility] [address] [place] [address] 61631 Neutrophils/Leukocyt es Auto (Bld) [Pure # fraction] 5.6 E9/L Normal 2.0-7.5 [facility] Comment on above: Order Comment: Order Added by Discern Expert. Performed By: #### 1 6564964, 71713146, 8127601, 5087436, 6016533, 6190992 #### [facility] [address] [place] [address] 86758 CBC w/ Auto Diffon 1 Erythrocyte distribution width (RBC) [Ratio] 13.0 % Normal 10.9-14.2 [facility] Comment on above: Performed By: #### 1 0182734, 15439838, 8885324, 8052381, 0532774, 9259470 #### [facility] [address] [place] [address] 09305 Hematocrit (Bld) [Volume fraction] 40.8 % Normal 34.0-46.0 [facility] Comment on above: Performed By: #### 1 5893967, 75949149, 1244165, 6976871, 2298463, 1055536 #### [facility] [address] [place] [address] 68974 Hemoglobin (Bld) [Mass/Vol] 13.4 g/dL Normal 12.0-16.0 [facility] Comment on above: Performed By: #### 1 8347439, 08517541, 3436031, 0520301, 5009186, 2836503 #### [facility] [address] [place] [address] 37364 MCH (RBC) [Entitic mass] 29.0 pg Normal 27.0-34.0 [facility] Comment on above: Performed By: #### 1 5361383, 80121153, 8044803, 3413388, 8666383, 7299402 #### [facility] [address] [place] [address] 20515 MCHC (RBC) [Mass/Vol] 32.9 g/dL Normal 31.4-36.0 [facility] Comment on above: Performed By: #### 1 8879837, 56604102, 9644443, 5656902, 8197064, 6921258 #### [facility] [address] [place] [address] 44760 MCV (RBC) [Entitic vol] 88.1 fL Normal 80.0-100.0 [facility] Comment on above: Performed By: #### 1 9698134, 54343927, 6316019, 5183750, 7674101, 4404791 #### [facility] [address] [place] [address] 74249 Platelet mean volume (Bld) [Entitic vol] 10.7 fL Normal 6.4-10.8 [facility] Comment on above: Performed By: #### 1 9594934, 21202895, 8569333, 9141245, 7722010, 7606637 #### [facility] [address] [place] [address] Platelets (Bld) [#/Vol] 306.0 E9/L Normal 150.0-500.0 [facility] Comment on above: Performed By: #### 1 5200369, 33382068, 0653003, 3112814, 4178961, 3791451 #### [facility] [address] [place] [address] RBC (Bld) [#/Vol] 4.6 E12/L Normal 4.3-5.9 [facility] Comment on above: Performed By: #### 1 0394341, 11699301, 3062002, 5649667, 3004294, 2675563 #### [facility] [address] [place] [address] 06342 WBC corrected for nucl RBC Auto (Bld) [#/Vol] 8.0 E9/L Normal 4.0-11.0 [facility] Comment on above: Performed By: #### 1 9418997, 43935129, 1886403, 5969294, 4632520, 8417266 #### [facility] [address] [place] [address] 69029 CMPon 11-12-2020 Albumin [Mass/Vol] 3.8 g/dL Normal 3.3-5.0 [facility] Comment on above: Performed By: #### 1 0505579, 70764954, 3800437, 4621263, 3360373, 9311361 #### [facility] [address] [place] [address] 99848 Albumin/Globulin (S) [Mass conc ratio] 1.1 Normal 1.1-2.2 [facility] Comment on above: Performed By: #### 1 1599563, 25893285, 1797847, 8285217, 8575632, 9461231 #### [facility] [address] [place] [address] 82499 ALP [Catalytic activity/Vol] 72 Int._Unit/L Normal 21-98 [facility] Comment on above: Performed By: #### 1 1953806, 98413172, 5993579, 1898570, 2806207, 8502193 #### [facility] [address] [place] [address] ALT No additional P-5'-P [Catalytic activity/Vol] 17 Int._Unit/L Normal 6-46 [facility] Comment on above: Performed By: #### 1 2475308, 04568380, 5269832, 4828360, 9022749, 4048345 #### [facility] [address] [place] [address] Anion gap [Moles/Vol] 11 mmol/L Normal 6-16 [facility] Comment on above: Performed By: #### 1 4004562, 99117679, 2174219, 4247113, 7969640, 6225569 #### [facility] [address] [place] [address] AST [Catalytic activity/Vol] 19 Int._Unit/L Normal 5-43 [facility] Comment on above: Performed By: #### 1 2933838, 98709964, 4228260, 8108416, 0183409, 2202891 #### [facility] [address] [place] [address] Bilirubin [Mass/Vol] 0.8 mg/dL Normal 0.0-1.1 [facility] Comment on above: Performed By: #### 1 4668401, 68089963, 7350841, 4195217, 5142584, 6287639 #### [facility] [address] [place] [address] Calcium [Mass/Vol] 8.8 mg/dL Low 8.9-11.1 [facility] Comment on above: Performed By: #### 1 7076596, 44305118, 2259505, 2365750, 8319629, 0497104 #### [facility] [address] [place] [address] Chloride [Moles/Vol] 105 mmol/L Normal 101-111 [facility] Comment on above: Performed By: #### 1 8613433, 53452150, 0656528, 8822165, 1550953, 6930703 #### [facility] [address] [place] [address] CO2 [Moles/Vol] 25 mmol/L Normal 21-31 [facility] Comment on above: Performed By: #### 1 7521848, 18690741, 2489064, 8002402, 6618753, 4590293 #### [facility] [address] [place] [address] Creatinine [Mass/Vol] 0.7 mg/dL Normal 0.5-1.3 [facility] Comment on above: Performed By: #### 1 5420704, 36168848, 6559762, 0741235, 5713966, 7739505 #### [facility] [address] [place] [address] Globulin (S) [Mass/Vol] 3.4 g/dL Normal 1.4-4.0 [facility] Comment on above: Performed By: #### 1 4997550, 10020687, 4584937, 8323160, 2340824, 5513505 #### [facility] [address] [place] [address] Glucose [Mass/Vol] 90 mg/dL Normal 55-199 [facility] Comment on above: Result Comment: If t his glucose result represents a fasting glucose, interpretation should refer to the following reference range: 55-99 mg/dL Performed By: #### 1 7230600, 66863452, 0715095, 6877156, 4588277, 3101111 #### [facility] [address] [place] [address] Potassium [Moles/Vol] 4.0 mmol/L Normal 3.5-5.3 [facility] Comment on above: Performed By: #### 1 3657630, 72983617, 8953162, 0284144, 0847705, 2101119 #### [facility] [address] [place] [address] Protein [Mass/Vol] 7.2 g/dL Normal 6.0-7.8 [facility] Comment on above: Performed By: #### 1 7122520, 44907577, 9340439, 2347564, 7155848, 1120705 #### [facility] [address] [place] [address] Sodium [Moles/Vol] 137 mmol/L Normal 135-145 [facility] Comment on above: Performed By: #### 1 6492506, 97843906, 5577531, 1142068, 2494053, 8627690 #### [facility] [address] [place] [address] Urea nitrogen [Mass/Vol] 8 mg/dL Normal 5-21 [facility] Comment on above: Performed By: #### 1 7402913, 45529455, 7967249, 2451735, 1007897, 9570151 #### [facility] [address] [place] [address] Urea nitrogen/Creatinine [Mass ratio] 11 No Units Normal 10-20 [facility] Comment on above: Performed By: #### 1 9245804, 82491273, 5881616, 0877135, 4422304, 8375036 #### [facility] [address] [place] [address] Family Medicine Office/Clini c Noteon 11-12-2020 Family Medicine Office/Clinic Note 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 Here today to discuss weight loss. Previously was prescribed phentermine, yet noted exacerbation of her underlying bipolar disorder with use. Over the past 9 years patient has had 3 children, has gained approximately 60-65 pounds and unable to lose weight despite her weight loss efforts. Has trialed keto diet which was unsustainable. Participates in physical activity twice a week at local [employer], elliptical and treadmill. Denies history of childhood obesity. Does note a history of migraine headaches as well, does take Topamax for this. Would like to be evaluated by dietitian/weight loss clinic in [place] as one of her friends has had [...] further evaluated per dietitian/weight loss clinic in [place], referral provided. Ordered: CBC w/ Auto Diff Comprehensive Metabolic Panel [facility] External Ambulatory Referral Lab Specimen Collect [id number] TSH With T4fr Reflex 2. Migraine headache (G43.909: Migraine, unspecified, not intractable, without status migrainosus) Well-controlled with use of topiramate. 3. Bipolar disorder (F31.9: Bipolar disorder, unspecified) Follows with psychiatry, notes recent restart of medications. Keep follow-up appointments as scheduled. Ordered: [facility] External Ambulatory Referral 4. Medication monitoring encounter (Z51.81: Encounter for therapeutic drug level monitoring) See notes above. Ordered: CBC w/ Auto Diff Comprehensive Metabolic Panel Lab Specimen Collect [id number] TSH With T4fr Reflex 5. BMI 35.0-35.9,adult (Z68.35: Body mass index [BMI] 35.0-35.9, adult) Routine physical exercise and a healthy diet to promote weight reduction and improve overall health encouraged. Ordered: [facility] External Ambulatory Referral 6. Obesity due to excess calories (E66.09: Other obesity due to excess calories) See above. Ordered: [facility] External Ambulatory Referral 7. Screening for lipid disorders (Z13.220: Encounter for screening for lipoid disorders) Patient is fasting today, will obtain lipid profile and call with results. Ordered: Lab Specimen Collect [id number] Lipid Panel Please Note: Portions of this chart may have been created using [employer] voice recognition software. Occasional wrong-word or sound-like substitutions may have occurred due to inherent limitations of the voice recognition software. Please read the chart carefully and recognize, using context, where the substitutions have occurred. Follow-up With When Contact Information Trudy MEHTA CNP In [address] [place], [place] [id number]- Additional Instructions: Patient Education Obesity, Adult Problem List/Past Medical History Ongoing Bipolar disorder BMI 35.0-35.9,adult Medication monitoring encounter Migraine headache Obesity due to excess calories Weight gain Historical No qualifying data Procedure/Surg (more content not included)... Normal [facility] Comment on above: Result Comment: Elec tronically Signed By: Trudy MEHTA CNP\.br\Date and Time Signed: 11/12/20 09:26 EDT Lipid Panelon 11-12-2020 Cholesterol [Mass/Vol] 163 mg/dL Normal 120-200 [facility] Comment on above: Performed By: #### 1 8232771, 58597918, 2683557, 7757774, 8013245, 1223049 #### [facility] [address] [place] [address] Cholesterol in HDL [Mass/Vol] 38 mg/dL Invalid Interpretation Code [facility] Comment on above: Result Comment: HDL > or equal to 60 mg/dL: Low cardiovascular risk HDL < 40 mg/dL : High cardiovascular risk Performed By: #### 1 0728945, 38463793, 3142749, 2399231, 8755326, 1937550 #### [facility] [address] [place] [address] Cholesterol in LDL [Mass/Vol] 109 mg/dL Normal <=129 [facility] Comment on above: Performed By: #### 1 1305004, 10489704, 4762822, 8214698, 1454744, 0363050 #### [facility] [address] [place] [address] Cholesterol in VLDL [Mass/Vol] 22 mg/dL Normal 7-40 [facility] Comment on above: Performed By: #### 1 7766082, 93068656, 7164065, 8552435, 0113549, 9584951 #### [facility] [address] [place] [address] Triglyceride [Mass/Vol] 109 mg/dL Normal <=149 [facility] Comment on above: Performed By: #### 1 8490178, 71386633, 2323975, 7313785, 3563855, 6692058 #### [facility] [address] [place] [address] Patient Educationon 11-13-19 21 Patient Education Gastroenterology [...] food choices, such as grocery stores and [employer]. What are the signs or symptoms? [...] 0?1 drink (more content not included)... Normal [facility] Physician Referralon 021 Physician Referral [id number] 1#1.00CD:127 Normal [facility] TSH With T4fr Reflexon 11-12 TSH Qn 1.98 m[IU]/L Normal 0.34-5.60 [facility] Comment on above: Performed By: #### 1 8301442, 49696327, 3935797, 5070866, 1950267, 3405847 #### [facility] [address] [place] [address] eGFRon 11-12-2020 GFR/1.73 sq M.predicted among blacks MDRD (S/P/Bld) [Vol rate/Area] mL/min/{1.73_m2} Normal >=59 [facility] Comment on above: Order Comment: Order added by Discern Expert. Result Comment: eGFR is race adjusted. AA=. Performed By: #### 1 7070784, 41439364, 8498361, 7049629, 1520217, 7300379 #### [facility] [address] [place] [address] GFR/1.73 sq M.predicted among non-blacks MDRD (S/P/Bld) [Vol rate/Area] mL/min/{1.73_m2} Normal >=59 [facility] Comment on above: Order Comment: Order added by Discern Expert. Result Comment: Coagulating [employer] sheila kidney disease could be indicated at eGFR's of less than 60 mL/min/1.73m2. Kidney failure is indicated at less than 15 mL/min/1.73m2. Performed By: #### 1 5039608, 97053602, 6718129, 4682733, 3704933, 1709295 #### [facility] [address] [place] [address] Amylaseon 09-18-2017 Amylase 41 U/L Normal 28-100 [facility] Comment on above: Result Comment: Perf ormed at [facility] [address] [place] [address] [phone] Performed By: #### C DP, BRETT, BMPX, LIP, LIVP ####[facility] [place] [address] Basic Metab w/rfx MGon 09-18 (cont.) Normal [facility] Comment on above: Result Comment: Aver age GFR for 20-29 years old: 116 mL/min/1.73sq mChronic Kidney Disease: <60 mL/min/1.73sq mKidney failure: <15 mL/min/1.73sq meGFR calculated using average adult body mass. Additional eGFR calculator available at:http://[email or web address].JouleX/multiple_crcl_2012.htmPerformed at [facility] [address] [place] [address] Performed By: #### C DP, BRETT, BMPX, LIP, LIVP ####[facility] [place] [address] Anion gap 11 mmol/L Normal 9-17 [facility] Comment on above: Performed By: #### C DP, BRETT, BMPX, LIP, LIVP ####[address] [place] [address] BUN/CRE Ratio 16 Normal 9-20 [facility] Comment on above: Performed By: #### C DP, BRETT, BMPX, LIP, LIVP ####[facility] [place] [address] Calcium 9.2 mg/dL Normal 8.6-10.4 [facility] Comment on above: Performed By: #### C DP, BRETT, BMPX, LIP, LIVP ####[address] [place] [address] Chloride 102 mmol/L Normal 98-107 [facility] Comment on above: Performed By: #### C DP, BRETT, BMPX, LIP, LIVP ####[address] [place] [address] CO2 28 mmol/L Normal 20-31 [facility] Comment on above: Performed By: #### C DP, BRETT, BMPX, LIP, LIVP ####[address] [facility] [place] [address] Creatinine 0.64 mg/dL Normal 0.50-0.90 [facility] Comment on above: Performed By: #### C DP, BRETT, BMPX, LIP, LIVP ####[facility] [facility] [place] [address] eGFR (non-black) mL/min/{1.73_m2} Normal >60 [facility] Comment on above: Performed By: #### C DP, BRETT, BMPX, LIP, LIVP ####[address] [facility] [address] [place] [address] Glucose mass conc 91 mg/dL Normal 70-99 [facility] Comment on above: Performed By: #### C DP, BRETT, BMPX, LIP, LIVP ####[address] [facility] [place] [address] Potassium molar conc 4.2 mmol/L Normal 3.7-5.3 [facility] Comment on above: Performed By: #### C DP, BRETT, BMPX, LIP, LIVP ####[address] [place] [address] Sodium 141 mmol/L Normal 135-144 [facility] Comment on above: Performed By: #### C DP, BRETT, BMPX, LIP, LIVP ####[address] [facility] [place] [address] Urea nitrogen 10 mg/dL Normal 6-20 [facility] Comment on above: Performed By: #### C DP, BRETT, BMPX, LIP, LIVP ####[address] [facility] [place] [address] Staging: NOT REPORTED Normal [facility] Comment on above: Performed By: #### C DP, BRETT, BMPX, LIP, LIVP ####[address] [facility] [place] [address] CBC with Diffon 09-18-2017 Abs. Basophil 0.00 k/uL Normal 0.0-0.2 [facility] Comment on above: Result Comment: Perf ormed at [facility] [address] [place] [address] Performed By: #### C DP, BRETT, BMPX, LIP, LIVP ####[facility] [facility] [address] [place] [address] Abs.Neutrophil (Seg) 6.20 k/uL Normal 2.5-7.0 [facility] Comment on above: Performed By: #### C DP, BRETT, BMPX, LIP, LIVP ####[address] [place] [address] Auto Diff Performed YES Normal [facility] Comment on above: Performed By: #### C DP, BRETT, BMPX, LIP, LIVP ####[address] [facility] [place] [address] Basophils/100 WBC Auto (Bld) 0 % Normal 0-2 [facility] Comment on above: Performed By: #### C DP, BRETT, BMPX, LIP, LIVP ####[address] [facility] [place] [address] Eosinophils 0.10 10*3/uL Normal 0.0-0.4 [facility] Comment on above: Performed By: #### C DP, BRETT, BMPX, LIP, LIVP ####[address] [place] [address] Eosinophils/100 leukocytes 1 % Normal 0-5 [facility] Comment on above: Performed By: #### C DP, BRETT, BMPX, LIP, LIVP ####[address] [place] [address] Erythrocyte distribution width Auto Ratio (RBC) 13.2 % Normal 12.1-15.2 [facility] Comment on above: Performed By: #### C DP, BRETT, BMPX, LIP, LIVP ####[address] [place] [address] Erythrocytes (RBC) 4.74 10*6/uL Normal 4.0-5.2 [facility] Comment on above: Performed By: #### C DP, BRETT, BMPX, LIP, LIVP ####[address] [place] [address] Hematocrit (HCT) 41.3 % Normal 36-46 [facility] Comment on above: Performed By: #### C DP, BRETT, BMPX, LIP, LIVP ####[address] [place] [address] Hemoglobin mass conc (Bld) 14.1 g/dL Normal 12.0-16.0 [facility] Comment on above: Performed By: #### C DP, BRETT, BMPX, LIP, LIVP ####[address] [place] [address] Lymphocytes 2.30 10*3/uL Normal 1.0-4.8 [facility] Comment on above: Performed By: #### C DP, BRETT, BMPX, LIP, LIVP ####[address] [place] [address] Lymphocytes/100 leukocytes 25 % Normal 15-40 [facility] Comment on above: Performed By: #### C DP, BRETT, BMPX, LIP, LIVP ####[address] [place] [address] MCH 29.6 pg Normal 26-34 [facility] Comment on above: Performed By: #### C DP, BRETT, BMPX, LIP, LIVP ####[address] [place] [address] MCHC mass conc (RBC) 34.0 g/dL Normal 31-37 [facility] Comment on above: Performed By: #### C DP, BRETT, BMPX, LIP, LIVP ####[facility] [place] [address] MCV 87.1 fL Normal 80-100 [facility] Comment on above: Performed By: #### C DP, BRETT, BMPX, LIP, LIVP ####[facility] [place] [address] Monocytes 0.60 10*3/uL Normal 0.0-1.0 [facility] Comment on above: Performed By: #### C DP, BRETT, BMPX, LIP, LIVP ####[facility] [place] [address] Monocytes/100 leukocytes 6 % Normal 4-8 [facility] Comment on above: Performed By: #### C DP, BRETT, BMPX, LIP, LIVP ####[place] [id number], [place] [address] Neutrophil (Seg) 68 % Normal 47-75 [facility] Comment on above: Performed By: #### C DP, BRETT, BMPX, LIP, LIVP ####[address] [place] [address] Platelets 273 10*3/uL Normal 140-450 [facility] Comment on above: Performed By: #### C DP, BRETT, BMPX, LIP, LIVP ####[place] [id number] [place] [address] WBC (Leukocytes) 9.1 10*3/uL Normal 3.5-11.0 [facility] Comment on above: Performed By: #### C DP, BRETT, BMPX, LIP, LIVP ####[place] [address] [place] [address] Erythrocyte morphology NOT REPORTED Normal [facility] Comment on above: Performed By: #### C DP, BRETT, BMPX, LIP, LIVP ####[place] [address] [place] [address] Erythrocytes (RBC) NOT REPORTED Normal [facility] Comment on above: Performed By: #### C DP, BRETT, BMPX, LIP, LIVP ####[facility] [place] [address] Granulocytes/100 WBC (Bld) NOT REPORTED Normal 0.00-0.30 [facility] Comment on above: Performed By: #### C DP, BRETT, BMPX, LIP, LIVP ####[facility] [place] [address] Immature granulocytes #/vol (Bld) NOT REPORTED Normal 0 [facility] Comment on above: Performed By: #### C DP, BRETT, BMPX, LIP, LIVP ####[place] [address] [place] [address] Platelet mean volume (PMV) NOT REPORTED Normal 6.0-12.0 [facility] Comment on above: Performed By: #### C DP, BRETT, BMPX, LIP, LIVP ####[facility] [place] [address] Platelets NOT REPORTED Normal [facility] Comment on above: Performed By: #### C DP, BRETT, BMPX, LIP, LIVP ####[place] [address] [facility] [address] [place] [address] WBC Morphology NOT REPORTED Normal 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 [address] Performed By: #### C DP, BRETT, BMPX, LIP, LIVP ####[facility] [place] [address] Liver Profileon 09-18-2017 Alanine aminotransferase (ALT) 10 U/L Normal 5-33 [facility] Comment on above: Performed By: #### C DP, BRETT, BMPX, LIP, LIVP ####[place] [address] [facility] [place] [address] Albumin 4.1 g/dL Normal 3.5-5.2 [facility] Comment on above: Performed By: #### C DP, BRETT, BMPX, LIP, LIVP ####[place] [address] [facility] [place] [address] Alkaline Phos 79 U/L Normal 35-104 [facility] Comment on above: Performed By: #### C DP, BRETT, BMPX, LIP, LIVP ####[place] [address] [facility] [place] [address] Aspartate aminotransferase (AST) 13 U/L Normal <32 [facility] Comment on above: Performed By: #### C DP, BRETT, BMPX, LIP, LIVP ####[place] [address] [facility] [place] [address] Bilirubin (direct) mg/dL Normal <0.31 [facility] Comment on above: Performed By: #### C DP, BRETT, BMPX, LIP, LIVP ####[place] [address] [facility] [place] [address] Bilirubin Ql (U) 0.21 mg/dL Low 0.30-1.20 [facility] Comment on above: Performed By: #### C DP, BRETT, BMPX, LIP, LIVP ####[place] [address] [facility] [place] [address] Bilirubin, Indirect CANNOT BE CALCULATED Normal 0.00-1 .00 [facility] Comment on above: Performed By: #### C DP, BRETT, BMPX, LIP, LIVP ####[facility] [place] [place] [address] Protein 7.2 g/dL Normal 6.4-8.3 [facility] Comment on above: Result Comment: Perf ormed at [facility] [address] [facility] [place] [address] Performed By: #### C DP, BRETT, BMPX, LIP, LIVP ####[place] [address] [facility] [place] [address] Albumin/Globulin Ratio NOT REPORTED Normal 1.0-2.5 [facility] Comment on above: Performed By: #### C DP, BRETT, BMPX, LIP, LIVP ####[address] [place] [address] Globulin NOT REPORTED Normal 1.5-3.8 [facility] Comment on above: Performed By: #### C DP, BRETT, BMPX, LIP, LIVP ####[place] [address] [facility] [place] [address] Urinalysis, Routineon 2017 Acetaminophen mass conc Negative Normal NEG [facility] Comment on above: Performed By: #### MARGRET Carcamo ####[place] [address] [facility] [place] [address] Bilirubin (direct) Negative Normal NEG [facility] Comment on above: Performed By: #### MARGRET Carcamo ####[place] [address] [facility] [place] [address] Comment Normal [facility] Comment on above: Result Comment: Perf ormed at [facility] [address] [place] [address] Performed By: #### U A, UMICAO ####[facility] [place] [address] Hemoglobin mass conc (Bld) TRACE Abnormal NEG [facility] Comment on above: Performed By: #### U A, UMICAO ####[facility] [place] [address] Nitrite,Ur Negative Normal NEG [facility] Comment on above: Performed By: #### U A, UMICAO ####[facility] [place] [address] Turbidity CLEAR Normal CLEAR [facility] Comment on above: Performed By: #### U A, UMICAO ####[facility] [place] [address] Urine, color YELLOW Normal YEL [facility] Comment on above: Performed By: #### U A, UMICAO ####[facility] [place] [address] Urine, glucose presence Negative Normal NEG [facility] Comment on above: Performed By: #### U A, UMICAO ####[facility] [place] [address] Urine, leukocyte esterase presence Negative Normal NEG [facility] Comment on above: Performed By: #### U A, UMICAO ####[facility] [place] [address] Urine, pH 7.0 [pH] Normal 5.0-8.0 [facility] Comment on above: Performed By: #### U A, UMICAO ####[facility] [place] [address] Urine, protein presence Negative Normal NEG [facility] Comment on above: Performed By: #### U A, UMICAO ####[facility] [place] [address] Urine, specific gravity 1.010 Normal 1.005-1.030 [facility] Comment on above: Performed By: #### U A, UMICAO ####[facility] [place] [address] Urobilinogen,Ur Normal Normal NORM [facility] Comment on above: Performed By: #### U Gwen, UMICAO ####[facility] [place] [address] Urinalysis,Microon 8 ----- Normal [facility] Comment on above: Performed By: #### U A, UMICAO ####[facility] [place] [address] Mucus Strands RARE Abnormal NONE [facility] Comment on above: Result Comment: Perf ormed at [facility] [address] [place] [address] Performed By: #### U Gwen UMICAO ####[facility] [place] [address] Urine, epithelial cells in sediment 10 TO 20 Normal [facility] Comment on above: Performed By: #### U Gwen, UMICAO ####[facility] [place] [address] Urine, erythrocytes 0 TO 2 Normal 0-2 [facility] Comment on above: Performed By: #### U A, UMICAO ####[facility] [place] [address] Epithelial, Renal NOT REPORTED Normal 0 [facility] Comment on above: Performed By: #### U A, UMICAO ####[facility] [place] [address] Other Observations NOT REPORTED Normal NREQ [facility] Comment on above: Performed By: #### U A, UMICAO ####[facility] [place] [address] Trichomonas NOT REPORTED Normal NONE [facility] Comment on above: Performed By: #### U A, UMICAO ####[facility] [place] [address] Urine WBC's NOT REPORTED Normal 0 [facility] Comment on above: Performed By: #### U A, UMICAO ####[facility] [place] [address] Urine, amorphous sediment presence in sediment NOT REPORTED Normal NONE [facility] Comment on above: Performed By: #### U A, UMICAO ####[facility] [place] [address] Urine, bacteria in sediment NOT REPORTED Normal NONE [facility] Comment on above: Performed By: #### U A, UMICAO ####[facility] [place] [address] Urine, casts in sediment NOT REPORTED Normal [facility] Comment on above: Performed By: #### U A, UMICAO ####[facility] [place] [address] Urine, crystals in sediment NOT REPORTED Normal NONE [facility] Comment on above: Performed By: #### U A, UMICAO ####[facility] [place] [address] Urine, yeast presence in sediment NOT REPORTED Normal NONE [facility] Comment on above: Performed By: #### U A, UMICAO ####[facility] [place] [address] Vital Signs Date Time Vital Sign Value Performing Clinician Facility 05-22-2023 10:03-0500 Diastolic blood pressure 68 mm[Hg] Yannick Lynch DO Work Phone: [facility] 05-22-2023 10:03-0500 Systolic blood pressure 110 mm[Hg] Yanncik Lynch DO Work Phone: [facility] 05-22-2023 09:59-0500 Body temperature 97.59 [degF] Yannick Lynch DO Work Phone: [facility] [employer] 05-22-2023 09:59-0500 Heart rate 64 /min Yannick Lynch DO Work Phone: [facility] 05-22-2023 09:59-0500 Respiratory rate 16 /min Yannick Lynch DO Work Phone: [facility] 05-22-2023 09:59-0500 SaO2% (BldA) [Mass fraction] 98 % Yannick Lynch DO Work Phone: [facility] [employer] 05-24-2022 10:17-0500 Body height 167.6 cm Daksha Kevin DO Work Phone: [facility] 05-24-2022 10:17-0500 Body mass index (BMI) [Ratio] 35.99 kg/m2 Daksha Brown DO Work Phone: [facility] 05-24-2022 10:17-0500 Body temperature 98.01 [degF] Daksha Brown DO Work Phone: [facility] 05-24-2022 10:17-0500 Body weight 101.15 kg Daksha Brown DO [facility] 05-24-2022 10:17-0500 Diastolic blood pressure 76 mm[Hg] Daksha Brown DO Work Phone: [facility] 05-24-2022 10:17-0500 Heart rate 69 /min Daksha Brown DO [facility] 05-24-2022 10:17-0500 SaO2% (BldA) [Mass fraction] 99 % Daksha Brown DO Work Phone: [employer] 05-24-2022 10:17-0500 Systolic blood pressure 116 mm[Hg] Daksha Brown DO Work Phone: [employer] 01-29-2021 11:45-0400 Body height 170.81 cm Naeem Huitron Jr. Other [employer] Other 01-29-2021 11:45-0400 Body mass index (BMI) [Ratio] 35.05 kg/m2 Naeem Huitron Jr. Other [employer] Other 01-29-2021 11:45-0400 Body weight 102.29 kg Naeem Huitron Jr. Other [employer] Other 01-29-2021 11:45-0400 Diastolic blood pressure 62 mm[Hg] Naeem Huitron Jr. Other [employer] Other 01-29-2021 11:45-0400 Respiratory rate 18 /min Naeem Huitron Jr. Other [employer] Other 01-29-2021 11:45-0400 SaO2% (BldA) [Mass fraction] 100 % Naeem Huitron Jr. Other [employer] Other 01-29-2021 11:45-0400 Systolic blood pressure 95 mm[Hg] Naeem Huitron Jr. Other [employer] Other Encounters Encounter Date Encounter Type Care Provider Facility Start: 08-14-2023 End: 08-14-2023 ambulatory LIZZIE BARNARD Not Available Start: 05-22-2023 End: 05-22-2023 Emergency department patient visit [facility] Start: 05-22-2023 End: 05-22-2023 Emergency department patient visit Yannick Lynch DO Work Phone: [facility] Comment on above: Sprain of right foot , initial encounter (Primary Dx) Start: 08-19-2022 ambulatory DAKSHA Espinoza [facility] Start: 07-01-2022 ambulatory DAKSHA Espinoza [facility] Start: 05-24-2022 ambulatory DAKSHA Espinoza [facility] Start: 05-24-2022 End: 05-24-2022 Office outpatient new 60 minutes Daksha Brown DO Work Phone: [facility] Comment on above: Gastroesophageal ref lux disease, unspecified whether esophagitis present (Primary Dx); Obesity (BMI 30-39.9); Hypersomnolence Start: 08-13-2021 End: 08-13-[address] LIZZIE BARNARD Facility:[facility] Start: 08-10-[address] LIZZIE BARNARD Facility :[facility] Start: 08-03-2021 Encounter for other preprocedural examination DR LIZZIE BARNARD [facility] Start: 07-30-2021 End: 07-31-2021 ambulatory CELESTE BURT Facility:[facility] Start: 07-30-2021 End: 07-31-2021 Encounter for other preprocedural examination DR LIZZIE BARNARD Facility:[facility] Start: 07-20-2021 End: 07-21-[address] LIZZIE BARNARD Facility:[facility] Start: 06-29-2021 End: 06-29-[address] LIZZIE BARNARD Facility:[facility] Start: 04-29-2021 End: 04-29-2021 ambulatory Naeem Huitron Other [employer] Other Start: 04-29-2021 Telephone encounter Naeem larios [facility] Start: 01-29-2021 Nutrition therapy Naeem Huitron Jr. [facility] Start: 11-13-2020 ambulatory VERONICA ARMSTRONG Facility:[facility] Start: 09-18-2017 End: 09-18-2017 Emergency department patient visit YANNICK CRIS [facility] Procedures Date Procedure Procedure Detail Performing [...] 11-01-2022 Influenza vaccination Flu vaccine (# 1) [facility] Start: 06-20-2022 End: 06-20-2022 Patient encounter procedure 06/20/2022 Appointment Nutrition and Dietetics Ramón Cisneros, RD [address] [place] [address] [facility] Start: 05-24-2022 End: 05-24-2023 B12/folate level B12 & FOLATE Lab Routine Obesity (BMI 30-39.9) Gastroesophageal reflux disease, unspecified whether esophagitis present Hypersomnolence Expected: 05/24/2022, Expires: 05/24/2023 [facility] Comment on above: Expected: 05/24/2022 , Expires: 05/24/2023 Start: 05-24-2022 End: 05-24-2023 Complete blood count with white cell differential, automated CBC, EDIF, PLATELET Lab Routine Obesity (BMI 30-39.9) Gastroesophageal reflux disease, unspecified whether esophagitis present Hypersomnolence Expected: 05/24/2022, Expires: 05/24/2023 [facility] Comment on above: Expected: 05/24/2022 , Expires: 05/24/2023 Start: 05-24-2022 End: 05-24-2023 Comprehensive metabolic 2000 panel - Serum or Plasma COMPREHENSIVE METABOLIC PANEL Lab Routine Obesity (BMI 30-39.9) Gastroesophageal reflux disease, unspecified whether esophagitis present Hypersomnolence Expected: 05/24/2022, Expires: 05/24/2023 [facility] Comment on above: Expected: 05/24/2022 , Expires: 05/24/2023 Start: 05-24-2022 End: 05-24-2023 DIAGNOSTIC UPPER ENDOSCOPY DIAGNOSTIC UPPER ENDOSCOPY GI/Bronch Routine Obesity (BMI 30-39.9) Gastroesophageal reflux disease, unspecified whether esophagitis present Hypersomnolence Expected: 05/24/2022, Expires: 05/24/2023 [facility] Comment on above: Expected: 05/24/2022 , Expires: 05/24/2023 Start: 05-24-2022 End: 05-24-2023 Hemoglobin A1c/Hemoglobin.total in Blood HEMOGLOBIN A1C Lab Routine Obesity (BMI 30-39.9) Gastroesophageal reflux disease, unspecified whether esophagitis present Hypersomnolence Expected: 05/24/2022, Expires: 05/24/2023 [facility] Comment on above: Expected: 05/24/2022 , Expires: 05/24/2023 Start: 05-24-2022 End: 05-24-2023 Iron [Mass/volume] in Serum or Plasma IRON Lab Routine Obesity (BMI 30-39.9) Gastroesophageal reflux disease, unspecified whether esophagitis present Hypersomnolence Expected: 05/24/2022, Expires: 05/24/2023 [facility] [employer] Comment on above: Expected: 05/24/2022 , Expires: 05/24/2023 Start: 05-24-2022 End: 05-24-2023 LIPID PANEL W CALCULATED LDL LIPID PANEL W CALCULATED LDL Lab Routine Obesity (BMI 30-39.9) Gastroesophageal reflux disease, unspecified whether esophagitis present Hypersomnolence Expected: 05/24/2022, Expires: 05/24/2023 [facility] Comment on above: Expected: 05/24/2022 , Expires: 05/24/2023 Start: 05-24-2022 End: 05-24-2023 Standard ECG ECG ECG Routine Obesity (BMI 30-39.9) Gastroesophageal reflux disease, unspecified whether esophagitis present Hypersomnolence Expected: 05/24/2022, Expires: 05/24/2023 [facility] Comment on above: Expected: 05/24/2022 , Expires: 05/24/2023 Start: 05-24-2022 End: 05-24-2023 Thyrotropin [Units/volume] in Serum or Plasma TSH Lab Routine Obesity (BMI 30-39.9) Gastroesophageal reflux disease, unspecified whether esophagitis present Hypersomnolence Expected: 05/24/2022, Expires: 05/24/2023 [facility] Comment on above: Expected: 05/24/2022 , Expires: 05/24/2023 Start: 05-24-2022 End: 05-24-2023 Thyroxine (T4) free [Mass/volume] in Serum or Plasma T4 FREE Lab Routine Obesity (BMI 30-39.9) Gastroesophageal reflux disease, unspecified whether esophagitis present Hypersomnolence Expected: 05/24/2022, Expires: 05/24/2023 [facility] Comment on above: Expected: 05/24/2022 , Expires: 05/24/2023 Start: 05-24-2022 End: 05-24-2023 VITAMIN A VITAMIN A Lab Routine Obesity (BMI 30-39.9) Gastroesophageal reflux disease, unspecified whether esophagitis present Hypersomnolence Expected: 05/24/2022, Expires: 05/24/2023 [facility] Comment on above: Expected: 05/24/2022 , Expires: 05/24/2023 Start: 05-24-2022 End: 05-24-2023 VITAMIN B1 VITAMIN B1 Lab Routine Obesity (BMI 30-39.9) Gastroesophageal reflux disease, unspecified whether esophagitis present Hypersomnolence Expected: 05/24/2022, Expires: 05/24/2023 [facility] Comment on above: Expected: 05/24/2022 , Expires: 05/24/2023 Start: 05-24-2022 End: 05-24-2023 VITAMIN D (25-HYDROXY,TOTAL) VITAMIN D (25-HYDROXY,TOTAL) Lab Routine Obesity (BMI 30-39.9) Gastroesophageal reflux disease, unspecified whether esophagitis present Hypersomnolence Expected: 05/24/2022, Expires: 05/24/2023 [facility] Comment on above: Expected: 05/24/2022 , Expires: 05/24/2023 Start: 05-24-2022 End: 05-24-2023 VITAMIN E VITAMIN E Lab Routine Obesity (BMI 30-39.9) Gastroesophageal reflux disease, unspecified whether esophagitis present Hypersomnolence Expected: 05/24/2022, Expires: 05/24/2023 [facility] Comment on above: Expected: 05/24/2022 , Expires: 05/24/2023 Start: 05-24-2022 End: 05-24-2023 XR Chest PA and Lateral XR CHEST PA AND LATERAL Imaging Routine Obesity (BMI 30-39.9) Gastroesophageal reflux disease, unspecified whether esophagitis present Hypersomnolence Expected: 05/24/2022, Expires: 05/24/2023 [facility] Comment on above: Expected: 05/24/2022 , Expires: 05/24/2023 Start: 12-02-2021 Influenza vaccination INFLUENZA VACC INE (#1) [facility] Start: 06-21-2021 DTaP/Tdap/Td vaccine (2 - Td or Tdap) DTaP/Tdap/Td vaccine (2 - Td or Tdap) [facility] Start: 2020 Screening for malign ant neoplasm of cervix [facility] Start: 2011 Screening for malign ant neoplasm of cervix [facility] Start: 2009 Third diphtheria, tetanus and acellular pertussis (DTaP) vaccination TDAP (ADULT) [facility] Start: 2008 Hepatitis C screening Hepatitis C sc reen [facility] Start: 2005 HIV screening [facility] Start: 2002 Depression Screen Depression Screen [facility] Start: 1991 Varicella vaccine (1 of 2 - 2-dose childhood series) Varicella vaccine (1 of 2 - 2-dose childhood series) [facility] Start: 1990 COVID-19 VACCINE (#1) COVID-19 VACCI NE (#1) [facility] Start: 1990 Hepatitis B vaccine (1 of 3 - 3-dose series) Hepatitis B vaccine (1 of 3 - 3-dose series) [facility] Start: 1990 Hepatitis C screening HEPATITI S C VIRUS SCREENING [facility] Start: 1990 Tetanus vaccination TETANUS [facility] Payers Date Payer Category Payer Self-pay [id number] 2022 Unknown [employer] [id number] 2022-Present [address] [place] [address] [id number] 2017 Unknown [id number] 1990 Unknown [id number] [id number] 1990 Unknown [id number] [id number] 1990 Unknown [id number] [id number] 1990 Unknown [id number] [id number] 1990 Unknown [id number] [id number] 1990 Unknown [id number] [id number] 1990 Unknown [id number] [id number] 1990 Unknown [id number] [id number] 1990 Unknown [id number] [id number] 1990 Unknown [id number] [id number] 1990 Unknown [id number] [id number] 1990 Unknown [id number] [id number] 1959 Medicaid [id number] 1959 Unknown [id number] Unknown [id number] Social History Date Type Detail Facility Tobacco smoking status NHIS Unknown if ever smoked [facility] [email or web address] Other Start: 1990 Sex Assigned At Female F [facility] Start: 12-02-2019 Sex Assigned At N [facility] [email or web address] Other Start: 09-18-2017 End: 05-24-2022 Tobacco smoking status KSIS [facility] smoked [facility] Start: 09-18-2017 End: 05-24-2022 Tobacco use and exposure Smokeless tobacco [facility]-user [facility] Start: 05-24-2022 Alcohol intake Ex-drinker (finding) [employer] [facility] Start: 1990 Sex Assigned At Not on file [facility] Start: 05-22-2023 Alcohol intake Current non-dr parish worker of alcohol (finding) [facility] Start: 12-02-2019 History of Social function [facility] Clinical Notes 01-29-2021 to 05-22-2023 Discharge InstructionsAttachmentsDaksha [...] cannot be sent through Care Everywhere.Foot Sprain (Marshallese)RICE: General Info (Marshallese)documented in this encounter [facility] 05-24-2022 History of Present illness Narrative Bariatric [...] AM Bariatric Surgery documented in this encounter [facility] 05-24-2022 Miscellaneous Notes Addended by: HUSAM GENTILE on: 05/24/2022 01:57 PM Modules accepted: Orders, SmartSet documented in this encounter [facility] 05-24-2022 Note Addended by: HUSAM CALERO on: 05/24/2022 01:57 PM Modules accepted: Orders, SmartSet [facility] 05-24-2022 Note Addended by: HUSAM CALERO on: 05/24/2022 01:57 PM Modules accepted: Orders, SmartSet [facility] 08-13-2021 Note OPERATIVE NOTE OPERATION DATE: 08/13/2021 PROCEDURE: Iwona endometrial ablation. PREOPERATIVE DIAGNOSIS: Menorrhagia. POSTOPERATIVE DIAGNOSIS: Menorrhagia. ANESTHESIA: General. SURGEON: Lizzie Barnard D.O. WELL PULLER: None. BLOOD LOSS: 5 mL. URINE OUTPUT: [...] to recovery in stable condition. [facility] Signed and Approved by: DR LIZZIE BARNARD . 08/17/2021 10:09:00 [facility] 01-29-2021 Evaluation note Encounter Date Diagnosis Assessment Notes Jan, Abnormal weight gain (ICD-10 - R63.5) Jan, Mixed hyperlipidemia (ICD-10 - E78.2) Jan, Acanthosis nigricans (ICD-10 - L83) Jan, PCOS (polycystic ovarian syndrome) (ICD-10 - E28.2) Jan, Bipolar affective disorder (ICD-10 - F31.9) Jan, Migraine (ICD-10 - G43.909) [facility] Other Evaluation noteNo assessment information available [facility] Work Phone: Evaluation noteNo InformationNortBro[facility] [email or web address] Other Evaluation note* Diagnosis Gastroesophageal reflux disease, unspecified whether esophagitis present- Primary Obesity (BMI 30-39.9) Obesity, unspecified Hypersomnolence Hypersomnia, unspecified [facility] Sprain of right foot, initial encounter- Primary documented in this encounter [facility] general Narrative - Reported* Type Description Date Medical History Migraines Medical History depression Medical History anxiety Medical History bipolar Medical History Panic attacks Surgical History tubal ligation 2019 Hospitalization History child [facility] Other Summary Purpose Family History No Family [...] whether esophagitis present Hypersomnolence Procedures ECG Daksha Borwn, DO [address] [place] [address] Referral ID Status Reason Start Date Expiration Date V isits Requested Visits Authorized [id number] New Request 05/24/2022 06/18/2023 1 1 Specialty Diagnoses / Procedures Referred By Contac t Referred To Contact Diagnoses Obesity (BMI 30-39.9) Gastroesophageal reflux disease, unspecified whether esophagitis present Hypersomnolence Procedures DIAGNOSTIC UPPER ENDOSCOPY NV ESOPHAGOGASTRODUODENOSCOPY TRANSORAL DIAGNOSTIC Daksha Brown, DO [address] [place] [address] Referral ID Status Reason Start Date Expiration Date V isits Requested Visits Authorized [id number] New Request 05/24/2022 06/18/2023 1 1 Specialty Diagnoses / Procedures Referred By Contac t Referred To Contact Nutrition and Dietetics Diagnoses Obesity (BMI 30-39.9) Gastroesophageal reflux disease, unspecified whether esophagitis present Hypersomnolence Daksha Brown, DO [address] [place] [address] Referral ID Status Reason Start Date Expiration Date V isits Requested Visits Authorized [id number] New Request 05/24/2022 06/18/2023 1 1 Specialty Diagnoses / Procedures Referred By Contac t Referred To Contact Psychology Diagnoses Obesity (BMI 30-39.9) Gastroesophageal reflux disease, unspecified whether esophagitis present Hypersomnolence Daksha Brown, DO [address] [place] [address] Mathew Buckley, PsyD [address] [place] [address] Referral ID Status Reason Start Date Expiration Date V isits Requested Visits Authorized [id number] New Request 05/24/2022 06/18/2023 1 1 Specialty Diagnoses / Procedures Referred By Contac t Referred To Contact Sleep Medicine Diagnoses Obesity (BMI 30-39.9) Gastroesophageal reflux disease, unspecified whether esophagitis present Hypersomnolence Daksha Brown, DO [address] [place] [address] Referral ID Status Reason Start Date Expiration Date V isits Requested Visits Authorized [id number] New Request 05/24/2022 06/18/2023 1 1 Additional Source Comments INFORMATION SOURCE (unrecogn ized section and content) DATE CREATED AUTHOR 09/19/2017 [facility] DATE CREATED AUTHOR AUTHOR'S ORGANIZ ATION 02/09/2021 [facility] DATE CREATED AUTHOR AUTHOR'S ORGANIZ ATION 08/19/2021 [facility] DATE CREATED AUTHOR AUTHOR'S ORGANIZ ATION 07/05/2022 [facility] DATE CREATED AUTHOR AUTHOR'S ORGANIZ ATION 05/24/2023 [facility] DATE CREATED AUTHOR AUTHOR'S ORGANIZ ATION 08/15/2023 [facility] DATE CREATED AUTHOR AUTHOR'S ORGANIZ ATION 08/17/2023 [facility] Goals (unrecognized section and content) Goals may be documented in a n alternate sectionNo InformationNo InformationGoals may be documented in an alternate section REASON FOR VISIT (unrecogniz ed section and content) Reason Comments New Patient Bariatric Consult wi [employer] Insurance Reason Comments Foot Pain Right foot pain, ons et after rolling ankle at work Care Teams (unrecognized sec tion and content) [employer] Relationship Specialty Start Date End Date Veronica Sanchez, DEAN PCP - General 05/24/22 [employer] Relationship Specialty Start Date End Date Yannick Lynch DO [address] [place] [address] (work) PCP - General 02/27/15 FOR RECORDS [...] BE BASED ON THE PRIMARY CLINICAL RECORDS. [facility] [employer] [facility]. provides no warranty or guarantee of the accuracy or completeness of information in this document.
[2023-09-04 08:39] LABS: Basophils Percent Auto 0.5 % (0.2-2.0); Eosinophils Absolute Auto 0.1 10^3/uL (0.0-0.7); Eosinophils Percent Auto 0.9 % (0.9-7.0); Hematocrit 41.5 % (36.0-48.0); Hemoglobin 13.6 g/dL (12.0-16.0); Immature Granulocytes Abs Auto 0.02 10^3/uL (0.00-0.03); Immature Granulocytes Pct Auto 0.2 % (0.0-0.5); Lymphocytes Absolute Auto 1.8 10^3/uL (1.2-3.8); Mean Corpuscular HGB Conc 32.8 g/dL (29.9-35.2); Mean Corpuscular Hemoglobin 28.9 pg (26.7-34.0); Mean Corpuscular Volume 88.3 fL (81.0-99.0); Mean Platelet Volume 12.1 fL (9.5-13.5); Monocytes Absolute Auto 0.5 10^3/uL (0.3-0.8); Monocytes Percent Auto 6.4 % (1.7-12.0); Platelet Count 259 10^3/uL (150-450); Red Cell Distribution Width 12.6 % (11.0-15.0); White Blood Count 8.5 10^3/uL (4.0-11.0)
[2023-09-04 09:08] LABS: INR 0.94; Partial Thromboplastin Time 30.8 sec (22.3-36.2)
[2023-09-04 15:28] LABS: Alanine Aminotransferase 15 U/L (14-59); Albumin Globulin Ratio 0.8; Albumin Level 3.2 g/dL (3.4-5.0); Alkaline Phosphatase 72 U/L (46-116); Anion Gap 15.5; Aspartate Amino Transferase 11 U/L (15-37); BUN Creatinine Ratio 15.7; Bilirubin Direct 0.1 mg/dL (0.0-0.2); Bilirubin Total 0.4 mg/dL (0.2-1.0); Calcium 8.6 mg/dL (8.5-10.1); Carbon Dioxide 23.6 mmol/L (21.0-32.0); Chloride 105 mmol/L (98-107); Estimated GFR (African America >60 (>=60); Estimated GFR (Non-African Ame >60 (>=60); Globulin 3.8 g/dL; Glucose 89 mg/dL (74-106); Potassium 4.1 mmol/L (3.5-5.1); Sodium 140 mmol/L (136-145)
== END 2023-09-04 08:02 | disposition home or self-care (01) ==
PROVIDERS: PCP Obstetrics & Gynecology; Visit Provider Obstetrics & Gynecology
DX: Z01.812 Encounter for preprocedural laboratory examination (principal); N92.0 Excessive and frequent menstruation with regular cycle; R10.2 Pelvic and perineal pain; N94.6 Dysmenorrhea, unspecified; N94.10 Unspecified dyspareunia
CPT/HCPCS: 80048; 80076; 85025; 85610; 85730; 86850; 86900; 86901

== ENCOUNTER 2023-09-07 11:14 | Day surgery (SDC) | payer OTHER, SELFPAY ==
[2023-09-04 08:32] VITALS: BP 118/84; PULSE 63; TEMP 36.4; O2SAT 99; BMI 34.4
[2023-09-07 11:57] VITALS: BP 102/61; PULSE 65; TEMP 36.3; O2SAT 99; BMI 34.2
[2023-09-07] MEDS: LACTATED RINGER'S SOLUTION 1,000 ML 50 ML IV (12:12)
[2023-09-07] MEDS: SCOPOLAMINE 1 MG/3 DAYS TRANSDERM PATCH 1 PATCH TD (12:20)
[2023-09-07 12:28] LABS: HCG Quantitative <1 mIU/mL
[2023-09-07] MEDS: CEFAZOLIN SODIUM/DEXTROSE,ISO 2 GM/50 ML PIGGYBACK IV ×2 (13:40→20:31)
[2023-09-07 15:37] VITALS: BP 101/65; PULSE 83; TEMP 36.8; O2SAT 94
--- NOTE | 2023-09-07 15:39 | PM.ONB ---
Brief Operative Note Date of procedure: 09/07/23 Pre-op diagnosis general: pelvic pain, aub, dysmenorrhea, dyspareunia Post-op diagnosis: same as pre-op Procedure: NAME OF PROCEDURE: ? Robotic assisted laparoscopic hysterectomy with cystoscopy, bilateral salpingectomy PROCEDURE:? The patient was taken back to the operating room, where she was prepped and draped in the normal sterile fashion after being placed in the dorsal lithotomy position.? Patient?s anesthesia was found to be adequate.? Surgical timeout was performed using two patient identifiers.? SCDs were on and in place.? Two grams of Ancef were given prior to the surgery.? Sterile Peterson catheter was inserted.? Standard size VCare was secured to the uterine cervix and the surgeon changed gloves.? Attention then was turned to the patient's abdomen, where a supraumbilical incision was then made.? Two S retractors were used to identify the patient?s fascia.? The fascia was then tented up using Tom clamps and the patient?s fascia was incised sharply.? Patient?s abdomen was identified and entered bluntly.? The patient had the trocar placed and a pneumoperitoneum was obtained.? Approximately 4 liters of CO2 gas was used.? The camera was then placed through the trocar.? At this time, two robot trocars were placed in the patient?s left and right side, two hand widths from the midline, and this was placed under direct visualization.? The patient?s tube on the right side was tented up and the vessel sealer was then used to come across the mesosalpinx, and this was carried down to the uterine ovarian ligament.? The vessel sealer was carried down serially to the broad ligament, to the area of the bladder flap, which was then created anteriorly, and the uterine arteries were skeletonized and sealed using the vessel sealer.? The colpotomy was made using the monopolar cautery on cut, and this was carried circumferentially, posteriorly to anteriorly, until the uterus was amputated.? The specimen was then removed intact through the vagina, without difficulty.? The vagina was then closed using two running V-Loc in a non-lock fashion.? The robot was undocked.? The abdomen was desufflated.? The skin defects were closed using 4-0 Vicryl.? Please note, the fascia was closed using 0 Vicryl.? Sponge, lap and needle counts were correct x2.? Patient was taken to recovery room in stable condition.? The patient was awakened by Anesthesia first.? Patient tolerated procedure well.?? Anesthesia: KAROLINA Surgeon: James Barnard [employer] Supervisor: Haley Jay Estimated blood loss (mL): 100 Pathology: other (uterus and cervix and tubes) Condition: stable Disposition: PACU Urinary Catheter Management Urinary Catheter Management Urethral: Cath placed during this visit: no
[2023-09-07] MEDS: LACTATED RINGER'S SOLUTION 1,000 ML 125 ML IV ×2 (15:46→23:32)
[2023-09-07 15:57] VITALS: BP 107/61; PULSE 78; TEMP 36.4; O2SAT 94
[2023-09-07 16:27] VITALS: BP 105/61; PULSE 76; O2SAT 99
[2023-09-07] MEDS: SIMETHICONE 80 MG TAB.CHEW PO ×2 (17:45→23:31)
[2023-09-07] MEDS: DOCUSATE SODIUM 100 MG CAPSULE PO (17:45)
[2023-09-07] MEDS: OXYCODONE HCL/ACETAMINOPHEN 5MG/325MG 1 TAB PO ×2 (17:45→23:31)
[2023-09-07 20:00] VITALS: BP 99/63; PULSE 73; TEMP 36.8; O2SAT 95
[2023-09-07 23:25] VITALS: BP 97/61; PULSE 75; TEMP 36.9; O2SAT 94
[2023-09-08] MEDS: CEFAZOLIN SODIUM/DEXTROSE,ISO 2 GM/50 ML PIGGYBACK IV (02:55)
[2023-09-08 05:46] VITALS: BP 100/56; PULSE 73; TEMP 36.9; O2SAT 92
[2023-09-08 06:00] LABS: Basophils Percent Auto 0.1 % (0.2-2.0); Hematocrit 37.8 % (36.0-48.0); Hemoglobin 12.7 g/dL (12.0-16.0); Immature Granulocytes Abs Auto 0.05 10^3/uL (0.00-0.03); Immature Granulocytes Pct Auto 0.3 % (0.0-0.5); Lymphocytes Absolute Auto 1.4 10^3/uL (1.2-3.8); Lymphocytes Percent Auto 8.6 % (20.5-60.0); Mean Corpuscular HGB Conc 33.6 g/dL (29.9-35.2); Mean Corpuscular Hemoglobin 29.5 pg (26.7-34.0); Mean Corpuscular Volume 87.7 fL (81.0-99.0); Monocytes Absolute Auto 0.8 10^3/uL (0.3-0.8); Monocytes Percent Auto 4.7 % (1.7-12.0); Neutrophils Percent Auto 86.3 % (43.0-75.0); Platelet Count 281 10^3/uL (150-450); Red Blood Count 4.31 10^6/uL (4.20-5.40); Red Cell Distribution Width 12.2 % (11.0-15.0); White Blood Count 16.2 10^3/uL (4.0-11.0)
[2023-09-08] MEDS: OXYCODONE HCL/ACETAMINOPHEN 5MG/325MG 1 TAB PO (06:36)
== END 2023-09-08 07:22 | disposition home or self-care (01) ==
LOC: SURGOUT 13:07 → MS 16:38
PROVIDERS: PCP Nurse Practitioner Family; Visit Provider Obstetrics & Gynecology
PROC: (CPT 840; principal; 2023-09-07 12:30)
DX: N94.10 Unspecified dyspareunia (principal); N92.0 Excessive and frequent menstruation with regular cycle; R10.2 Pelvic and perineal pain; N94.6 Dysmenorrhea, unspecified; N93.9 Abnormal uterine and vaginal bleeding, unspecified; N83.8 Other noninflammatory disorders of ovary, fallopian tube and broad ligament; D25.9 Leiomyoma of uterus, unspecified
CPT/HCPCS: 58571; 36415; 84702; 85025; 88307; 94667; J1094; J1170; J2704